=== PATIENT | female | born 1945 | race Two or more races ===

== ENCOUNTER 2025-04-11 07:00 | Inpatient (IN) | payer OTHER, MEDICAID ==
[2025-04-10 20:30] VITALS: PULSE 118
[2025-04-11] VITALS (23 sets, daily range): BP systolic 81–110; BP diastolic 38–62; PULSE 116–150; RESP 10–27; TEMP 98.1–98.6; O2SAT 94–100
[~2025-04-11] VITALS: Ht 154.9 cm; Wt 80.0 kg
[2025-04-11] MEDS ORDERED: FUROSEMIDE 40 MG/4 ML VIAL ONE (07:08)
--- NOTE | 2025-04-11 07:13 | ED.PDOC ---
SOB-HPI HPI Comments 79-year-old male with PMHx Asthma, HTN, DM presents with a chief complaint of respiratory distress on CPAP. Patient has been SOB for 1 hour per family at scene. Patient was initially sating at 89% on room air. Patient was given a breathing treatment with no improvement and was subsequently placed on CPAP at 15. Patient is now sating at 92%. Patient is pale in color and diaphoretic. Lungs sounds had bilateral wheezing upon auscultation. Patient was recently seen at [facility] for respiratory distress x 1 month ago. Time Seen by MD: 06:58 Reviewed notes: Medications, Allergies Information Source: Emergency Med Personnel Mode of Arrival: EMS Severity: Moderate Timing: Hours Duration: Since onset Context: At Rest PE Risk Factors: None History of: Asthma Prehospital treatment: 12 Lead EKG, Optical Technician, Oxygen Associated Signs and Symptoms: Wheeze Past Medical History PAST MEDICAL HISTORY: Asthma, DM, HTN Surgical History: Denies all surgeries Family History Family History: Reviewed,noncontributory to illness Social History Smoker: Non-Smoker Alcohol: Denies ETOH Use Drugs: Denies Drug Use Lives In: Home Constitutional: reports: diaphoresis; denies: chills, fatigue, fever, malaise, sweats, weakness, others EENTM: denies: blurred vision, double vision, ear bleeding, ear discharge, ear drainage, ear pain, ear ringing, eye pain, eye redness, hearing loss, mouth pain, mouth swelling, nasal discharge, nose bleeding, nose congestion, nose pa in, photophobia, tearing, throat pain, throat swelling, voice changes, others Respiratory: reports: shortness of breath, wheezing; denies: cough, hemoptysis, orthopnea, SOB at rest, SOB with excertion, stridor, others Cardiovascular: denies: chest pain, dizzy spells, diaphoresis, Dyspnea on exertion, edema, irregular heart beat, left arm pain, lightheadedness, palpitations, PND, syncope, others Gastrointestinal: denies: abdomen distended, abdominal pain, blood streaked bowels, constipated, diarrhea, dysphagia, difficulty swallowing, hematemesis, melena, nausea, poor appetite, poor fluid intake, rectal bleeding, rectal pain, vomiting, others Neurological: denies: dizziness, fainting, headache, left sided numbness, left sided weakness, numbness, paresthesia, pre-existing deficit, right sided numbness, right sided weakness, seizure, speech problems, tingling, tremors, weakness, others Musculoskeletal: denies: back pain, gout, joint pain, joint swelling, muscle pain, muscle stiffness, neck pain, others Integumetry: denies: bruises, change in color, change in hair/nails, dryness, laceration, lesions, lumps, rash, wounds, others Allergic/Immunocompromised: denies: Difficulty Healing, Frequent Infections, Hives, Itching, others Hematologic/Lymphatic: denies: anemia, blood clots, easy bleeding, easy bruis ing, swollen glands, others Endocrine: denies: excessive hunger, excessive sweating, excessive thirst, exc essive urination, flushing, intolerance to cold, intolerance to heat, unexplained weight gain, unexplained weight loss, others Psychiatric: denies: anxiety, bipolar disorder, depression, hopeless, panic disorder, schizophrenia, sleepless, suicidal, others All Other Systems: Reviewed and Negative Physical Exam General Appearance: Normal, Severe Distress HEENT: Normal ENT Inspection, PERRL/EOMI, Pharynx Normal, TMs Normal, Other (PATIENT ON CPAP+) Neck: Full Range of Motion, Non-Tender, Normal, Normal Inspection Respiratory: Crackles, Lungs Clear, No Accessory Muscle Use, No Respiratory Distress, Normal Breath Sounds, Rales, Rhonchi Cardiovascular: No Edema, No JVD, No Murmur, No Gallop, Normal Peripheral Pulses, Regular Rate/Rhythm, Tachycardia Breast Exam: Deferred Gastrointestinal: No Organomegaly, Non Tender, No Pulsatile Mass, Normal Bowel Sounds, Soft Genitalia: Deferred Pelvic: Deferred Rectal: Deferred Extremities: No calf tenderness, Normal capillary refill, Normal inspection, Normal range of motion, Non-tender, No pedal edema Musculoskeletal : Apperance: Normal Neurologic: undergraduate intern II-XII nml as Tested, Depressed Affect, Motor Weakness, No Sensory Deficits Cerebellar Function: Normal Reflexes: Normal Skin: Diaphoresis, Dry, Normal Color, Warm Peripheral Pulses: 1+ carotid (R), 1+ carotid (L) Lymphatic: No Adenopathy EKG EKG : Pulse Rate (adult): 133 [place]: Normal Cardiac Rhythm: ST Was a procedure done? Was a procedure done?: No Differential Dx Differential Diagnosis: Asthma, Cardiogenic Shock, CHF, COPD, Dysrhythmia, Hyponatremia, Myocardial infarction, Pneumonia X-Ray, Labs, Meds, VS Vital Signs Date Time Temp Pulse Resp B/P (MAP) Pulse Ox O2 Delivery O2 Flow Rate FiO2 04/11/25 09:33 133 04/11/25 09:09 137 105/60 Facial BiPAP Mask 30 04/11/25 08:26 98.6 150 22 107/62 98 30 98.6 04/11/25 07:30 150 27 97 Bi-Pap+ 100 100 04/11/25 07:30 156 27 107/62 (77) 98 04/11/25 07:17 121/70 04/11/25 07:11 98.6 146 40 107/81 90 98.6 04/11/25 07:09 134 Facial BiPAP Mask 100 04/11/25 07:05 133 Lab Test 04/11/25 08:40 04/11/25 08:29 04/11/25 08:13 04/11/25 07:06 Range/Units Urine Color Colorless Yellow Urine Clarity Clear Clear Urine pH 5.0 5.0-9.0 Urine Specific [place] 1.008 1.001-1.035 Urine Protein Trace H Negative Urine Ketones Negative Negative Urine Blood 1+ H Negative /uL Urine Nitrite Negative Negative Urine Bilirubin Negative Negative Urine Urobilinogen Normal Negative mg/dL Urine Leukocyte Esterase Negative Negative /uL Urine RBC 23 0 - 4 /hpf Urine Microscopic WBC 1 0-5 /HPF Urine Squamous Epithelial Cells Few <5 /hpf Urine Bacteria None seen None Seen /hpf Urine Hyaline Casts Few 0 - 2 /lpf Urine Glucose 1+ H Normal mg/dL Troponin I High Sensitivity 566 *H 128 *H </=34 ng/L Blood Gas Specimen Type Arterial Blood Gas Sample Site Right radial Blood Gas Patient Temperature 37.0 Arterial Blood Date Drawn [id number] Arterial Blood pH 7.241 *L 7.350-7.450 Arterial Blood Partial Pressure CO2 57.5 H 32.0-45.0 mmHg Arterial Blood Partial Pressure O2 511.9 *H 83.0-108.0 mmHg Arterial Blood HCO3 24.1 21.0-28.0 mmol/L Arterial Blood Oxygen Saturation 99.9 H 94.0-98.0 % Arterial Blood Base Excess -4.0 L -2.0-3.0 mmol/L Arterial Blood Oxyhemoglobin 98.7 H 94.0-98.0 % Arterial Blood Carboxyhemoglobin 0.5 0.5-1.5 % Arterial Blood Methemoglobin 0.7 0.0-1.5 % Watson Test Yes Blood Gas Total Hemoglobin 13.30 12.0-16.0 g/dL Blood Gas Set Respiration Rate 12.0 Blood Gas Modality Mask - bipap Blood Gas Spontaneous Rate 22 FiO2 % 100.0 Blood Gas EPAP 8 Blood Gas IPAP 16 Blood Gas Critical Value Read Back yes Blood Gas Notified Whom Blood Gas Notified Time [id number] Blood Gas Notified By biochemistry teacher [place] White Blood Count 18.1 H 4.4-10.8 10^3/uL Red Blood Count 4.45 4.0-5.20 10^6/uL Hemoglobin 13.0 12.2-16.2 g/dL Hematocrit 39.4 36.0-46.0 % Mean Corpuscular Volume 88.6 80.0-100.0 fL Mean Corpuscular Hemoglobin 29.2 28.0-32.0 pg Mean Corpuscular Hemoglobin Concent 32.9 32.0-36.0 g/dL Red Cell Distribution Width 13.6 11.8-14.3 % Platelet Count 292 140-450 10^3/uL Mean Platelet Volume 8.7 6.9-10.8 fL Neutrophils (%) (Auto) 51.1 37.0-80.0 % Lymphocytes (%) (Auto) 38.4 10.0-50.0 % Monocytes (%) (Auto) 6.3 0.0-12.0 % Eosinophils (%) (Auto) 3.3 0.0-7.0 % Basophils (%) (Auto) 0.9 0.0-2.0 % Neutrophils # (Auto) 9.3 H 1.6-8.6 10 ^3/uL Lymphocytes # (Auto) 6.9 H 0.4-5.4 10 ^3/uL Monocytes # (Auto) 1.1 0-1.3 10 ^3/uL Eosinophils # (Auto) 0.6 0-0.8 10 ^3/uL Basophils # (Auto) 0.2 0-0.2 10 ^3/uL Nucleated Red Blood Cells 0.1 % D-Dimer, Quantitative 1.14 H 0.0-0.49 mg/L FEU Sodium Level 142 136-145 mmol/L Potassium Level 3.2 L 3.5-5.1 mmol/L Chloride Level 105 98-107 mmol/L Carbon Dioxide Level 23 20-31 mmol/L Anion Gap 14 5-15 Blood Urea Nitrogen 11 9-23 mg/dL Creatinine 1.11 H 0.550-1.02 mg/dL Glomerular Filtration Rate Calc 50 >90 mL/min BUN/Creatinine Ratio 9.9 L 10.0-20.0 Serum Glucose 333 H 74-106 mg/dL Calcium Level 9.1 8.7-10.4 mg/dL Magnesium Level 1.5 L 1.6-2.6 mg/dL Total Bilirubin 0.7 0.2-1.0 mg/dL Aspartate Amino Transferase (AST) 26 13-40 U/L Alanine Aminotransferase (ALT) 13 7-40 U/L Alkaline Phosphatase 60 46-116 U/L B-Type Natriuretic Peptide 323.97 0-100 pg/mL Total Protein 7.2 5.7-8.2 g/dL Albumin 4.8 3.2-4.8 g/dL Thyroid Stimulating Hormone (TSH) 2.26 0.55-4.78 uIU/mL Current Medications Medications (Trade) Dose Ordered Sig/[place] Route Start Time Stop Time Status Last Admin Furosemide (Lasix Injection) 40 mg ONCE ONCE IV 04/11/25 07:15 04/11/25 07:16 DC 04/11/25 07:17 X-Ray, Labs, Meds, VS Comment Course in the emergency department eventful patient came in with shortness of breath on a CPAP diaphoretic and tachycardic The chest x-ray shows pulmonary edema EKG shows sinus tachycardia at 1:33 a.m. CBC 36102 with 51% neutrophils H&H normal Troponin 128 and 566 CMP potassium 3.2 GFR of 50 Blood sugar 333 Magnesium 1.5 Urine shows 1+ protein 1+ glucose D-dimer elevated at 1.14 BNP 324 TSH 2.26 Patient is a [employer] member she is non transferrable Time of 1ST Reevaluation: 07:28 Reevaluation 1ST: Unchanged Reevaluation 2ND: Unchanged Consultation: Cardiology Patient Education/Counseling: Diagnosis, Treatment, Prognosis, Need For Follow Up Family Education/Counseling: Diagnosis, Treatment, Prognosis, Need For Follow Up, No Family Present SEPSIS Sepsis Screen Physician Orders Chest Xray 1 View (04/11/25 07:08) Communication Order (04/11/25 07:05) Electrocardigram (04/11/25 10:07) [place] Iv (04/11/25 07:06) Sodium Chloride 0.9% (04/11/25 07:15) BIPAP (04/11/25 07:08) Abg W/ Co-Ox (04/11/25 08:00) Troponin-I Hs (04/11/25 10:06) Vital Signs Date Time Temp Pulse Resp B/P (MAP) Pulse Ox O2 Delivery O2 Flow Rate FiO2 04/11/25 09:33 133 04/11/25 09:09 137 105/60 Facial BiPAP Mask 30 04/11/25 08:26 98.6 150 22 107/62 98 30 98.6 04/11/25 07:30 150 27 97 Bi-Pap+ 100 100 04/11/25 07:30 156 27 107/62 (77) 98 04/11/25 07:17 121/70 04/11/25 07:11 98.6 146 40 107/81 90 98.6 04/11/25 07:09 134 Facial BiPAP Mask 100 04/11/25 07:05 133 Laboratory Tests Test 04/11/25 07:06 White Blood Count 18.1 10^3/uL (4.4-10.8) H Medications Medications Dose Ordered Sig/[place] Route Start Time Stop Time Status Last Admin Dose Admin Furosemide 40 mg ONCE ONCE IV 04/11/25 07:15 04/11/25 07:16 DC 04/11/25 07:17 Departure 1 Departure Time of Disposition: 09:29 Impression: Primary Impression: Pulmonary edema cardiac cause Additional Impressions: Hypokalemia CKD (chronic kidney disease) stage 3, GFR 30-59 ml/min Qualified Codes: N18.31 - Chronic kidney disease, stage 3a Uncontrolled diabetes mellitus Qualified Codes: E11.65 - Type 2 diabetes mellitus with hyperglycemia Hypomagnesemia Elevated troponin Disposition: ADMITTED INPATIENT Admit to: [facility] Condition: Serious Critical Care Note Critical Care Time?: Yes (30 min-critical care time only) Stability Stability form required: Yes Comments /Patient is a [employer] member she is not transferrable Spoke to [place] doctor and the approval to [phone] Unstable for transfer: ICU, CCU, PCU, [facility] (Intensive VS monitoring), Requires medication Heart Score Heart Score: Heart Score Response (Comments) Value History Highly Suspicious [address]-Deviation 2 Age >65 2 Risk Factors >3 or Hx ASHD 2 Troponin >3 x's Normal limit 2 Total 10 I personally scribed for KELLEN MENDOZA MD ([email or web address]) on 04/11/25 at 07:13. Electronically submitted by Jalen Johns [email or web address]). KELLEN MENDOZA MD Apr 11, 2025 07:13
[2025-04-11] MEDS: FUROSEMIDE 20 MG/2 ML VIAL IV ONE (07:17)
[2025-04-11 07:40] LABS: Hematocrit 39.4 % (36.0-46.0); Hemoglobin 13.0 g/dL (12.2-16.2); Mean Corpuscular Hemoglobin 29.2 pg (28.0-32.0); Mean Corpuscular Volume 88.6 fL (80.0-100.0); Nucleated Red Blood Cells % 0.1 %
--- NOTE | 2025-04-11 07:44 | DVH ---
CHEST RADIOGRAPH Indication: RESPIRATORY DISTRESS Technique: Single frontal view of the chest was obtained Comparison: None FINDINGS: Lines and Tubes: None Lungs: Bilateral opacities in the lungs. Pleura: No effusion. No pneumothorax. Cardiomediastinal contours: Unremarkable Bones: No acute osseous abnormality. IMPRESSION: 1. Pulmonary vascular congestion.
[2025-04-11] MEDS: SODIUM CHLORIDE 0.9% 1,000 ML IV ONE (07:46)
[2025-04-11 08:09] LABS: Alanine Aminotransferase 13 U/L (7-40); Albumin 4.8 g/dL (3.2-4.8); Alkaline Phosphatase 60 U/L (46-116); Anion Gap 14 (5-15); BUN/Creatinine Ratio 9.9 (10.0-20.0); Blood Urea Nitrogen 11 mg/dL (9-23); Calcium 9.1 mg/dL (8.7-10.4); Carbon Dioxide 23 mmol/L (20-31); Chloride 105 mmol/L (98-107); Glucose 333 mg/dL (74-106); Magnesium 1.5 mg/dL (1.6-2.6); Potassium 3.2 mmol/L (3.5-5.1); Sodium 142 mmol/L (136-145); Total Protein 7.2 g/dL (5.7-8.2)
[2025-04-11 08:10] LABS: Bilirubin, Total 0.7 mg/dL (0.2-1.0)
[2025-04-11 08:19] LABS: Base Excess -4.0 mmol/L (-2.0-3.0)
[2025-04-11 09:12] LABS: Urine Protein, UAD TRACE (Negative)
--- NOTE | 2025-04-11 10:00 | ECG ---
[facility] Test Date: 2025-04-11 Test Time: 07:05:02 Pat Name: DANILO DAMIAN Department: [facility] ED Patient ID: [id number] Room: [address] [place] [address] Gender: F Head Of History: TEO : 1945 Requested By: KELLEN MENDOZA Order Number: [id number] Reading MD: Herson Perez Measurements Intervals [place] Rate: 133 P: 85 NV: 153 QRS: 12 QRSD: 75 T: 182 QT: 256 QTc: 381 Interpretive Statements Sinus tachycardia Repolarization abnormality, prob rate related Baseline wander in lead(s) V2,V6 Electronically Signed On 04-16-2025 17:54:33 PDT by Herson Perez Please click the below link to view image of tracing.
[2025-04-11 11:22] LABS: Base Excess -2.5 mmol/L (-2.0-3.0)
[2025-04-11] MEDS: MAGNESIUM SULFATE 1GM/100ML 100 ML IV SCH (11:31)
[2025-04-11] MEDS: POTASSIUM EFFERVESENT TAB 25 MEQ PO ONE (11:31)
[2025-04-11] MEDS: IOHEXOL 350 MG/ML 100ML IJ ONE (12:55)
[2025-04-11] MEDS: LEVALBUTEROL HCL 1.25 MG/3 ML NEB NEB ONE (13:30)
[2025-04-11] MEDS: ALBUTEROL SULF 2.5 MG/0.5ML(0.5%) NEB SOLN NEB ONE (13:30)
[2025-04-11] MEDS: IPRATROPIUM BROM 0.5 MG/2.5ML INH SOL ONE (13:41)
[2025-04-11] MEDS: LEVALBUTEROL HCL 1.25 MG/3 ML NEB ONE (13:41)
--- NOTE | 2025-04-11 13:44 | DVH ---
CTA Chest with intravenous contrast INDICATION: R/O pulmonary embolism COMPARISON: XY CHEST XRAY 1 VIEW on DOS: 04/11/25 TECHNIQUE: Multidetector spiral CTA of the chest was performed of the chest with intravenous contrast . PULMONARY ANGIOGRAPHY PROTOCOL was utilized using a bolus-tracking technique centered on the main p ulmonary artery. Axial, coronal and sagittal multiplanar and MIP reformats were performed. CONTRAST: Type of contrast: Omni 350 Contrast injected: 100 ml Radiation dose : Chest: CTDI volume is mGy. Dose-length product is mGy*cm The dose indicators for CT are the volume computed Tomography (CT) dose Index (CTDIvol) and the dose Length product (DLP), and are measured in units of mGy and mGy-cm, respectively. These indicators are not patient dose, but values generated from the CT scanner acquisition factors. The report includes radiation exposure data for exposures received during this examination. Findings: Limited by motion. Pulmonary artery: No large central or large segmental pulmonary embolism. Lower neck: Normal thyroid. Lungs: Patchy ground-glass opacities in both lungs. Septal thickening. Atelectasis and consolidation in the lung bases. Heart/Vascular Structures: Normal heart size. No pericardial effusion. Lymph Nodes: Subcentimeter mediastinal lymph nodes. Pleura: Small bilateral pleural effusions. Musculoskeletal: No acute osseous abnormality. Soft tissues: Normal. Upper abdomen: Limited portions of the upper abdomen are unremarkable. IMPRESSION: 1. Limited by motion. No large central pulmonary embolism. 2. Patchy ground-glass opacities in both lungs. Atelectasis and consolidation in the lung bases. Sm all bilateral pleural effusions. Findings could represent congestive failure and/or fluid overload. Superimposed infectious / inflammatory process is not excluded. Clinical correlation and continued f ollow-up is recommended. HS:Y
[2025-04-11] MEDS: FUROSEMIDE 40 MG/4 ML VIAL IV ONE (13:50)
[2025-04-11] MEDS ORDERED: ONDANSETRON HCL 4 MG/2 ML VIAL IV PRN (14:45)
[2025-04-11] MEDS ORDERED: NITROGLYCERIN 0.4 MG SL TAB SL PRN (14:45)
[2025-04-11] MEDS ORDERED: MORPHINE SULFATE INJ 2 MG/ml SYRG IV PRN (14:45)
[2025-04-11] MEDS ORDERED: ACETAMINOPHEN 325 MG TAB PO PRN (14:45)
[2025-04-11] MEDS ORDERED: HYDROcodone-ACET 5/325MG TAB PO PRN (14:45)
[2025-04-11] MEDS ORDERED: METF-1145 PO (15:08)
[2025-04-11] MEDS ORDERED: MET50T PO (15:08)
[2025-04-11] MEDS ORDERED: ATOR40TA52 PO (15:08)
[2025-04-11] MEDS ORDERED: AMLO1TAB21 PO (15:08)
[2025-04-11] MEDS ORDERED: OMEP1CAP70 PO (15:08)
[2025-04-11] MEDS ORDERED: LISI40TA16 PO (15:08)
[2025-04-11] MEDS ORDERED: ISOS1TAB28 PO (15:08)
[2025-04-11] MEDS ORDERED: GLIP10TA9 PO (15:08)
--- NOTE | 2025-04-11 15:08 | DVHINCON2 ---
Date Seen: Apr 11, 2025 Referring Physician NAZARIO Raines Reason for Consultation NSTEMI History of Present Illness This is a Yi-speaking 79-year-old female patient who presents to the emergency room with chief complaint of shortness of breath and chest pain. The patient reports that symptoms began this morning after walking to the restroom. She began experiencing severe shortness of breath and subsequently chest pain. She describes the pain as provoked on exertion, constant, tight in nature, left- sided and nonradiating. Associated symptoms include shortness of breath. The patient was brought to the emergency room for further evaluation. Initial twelve lead electrocardiogram reveals sinus tachycardia. Initial troponin level of 128ng/L with significant up trend and current peak level at 4909ng/L. The patient was taken for a CT angio which ruled out pulmonary embolism. Significant past medical history includes hypertension, dyslipidemia, type 2 diabetes mellitus, asthma, and obesity. The patient's daughter at bedside reports that the patient was recently seen at this facility and transferred to [facility] for higher level of care. They were told at [facility] that the patient had a myocardial infarction. The patient states that she has been scheduled to undergo a coronary angiogram on 04/16/2025. She denies any previous coronary angiogram in the past. Past Medical History Past medical history reviewed. No other significant than mentioned above. Past Surgical History Right hip replacement Family History Family history reviewed. Social History Denies the use of tobacco, alcohol or illicit drugs. Allergies: Coded Allergies: NO KNOWN ALLERGIES (Unverified , 04/11/25) Home Meds Reported Medications Isosorbide Mononitrate (Isosorbide Mononitrate Er) 30 Mg Tab, 1 TAB PO DAILY 04/11/25 Amlodipine Besylate (Amlodipine Besylate) 2.5 Mg Tab, 1 TAB PO BID 04/11/25 Omeprazole (Omeprazole Dr) 20 Mg Cap, 1 CAP PO DAILY 04/11/25 Metformin Hydrochloride (Metformin Hcl Er) 500 Mg Tab, 1 TAB PO DAILY 04/11/25 Glipizide (Glipizide) 10 Mg Tab, 1 TAB PO DAILY 04/11/25 Lisinopril (Lisinopril) 40 Mg Tab, 1 TAB PO DAILY 04/11/25 Atorvastatin Calcium (ATORVASTATIN CALCIUM) 40 Mg Tab, 1 TAB PO HS 04/11/25 Metoprolol Tartrate (LOPRESSOR TABLET) 50 Mg Tb, 1 TAB PO BID 04/11/25 Home Meds Home medications reviewed. Current Medications Current Medications Medications (Trade) Dose Ordered Sig/Tanika Route PRN Reason Start Time Stop Time Status Last Admin Magnesium Sulfate/ Dextrose 100 ml @ 100 mls/hr Q1H IV 04/11/25 11:00 04/11/25 12:59 DC 04/11/25 13:40 Acetaminophen/ Hydrocodone Bitart ([place] 5/325MG Tab) 1 tab Q4HP PRN PO MODERATE PAIN (4-6 PAIN SCALE) 04/11/25 14:45 Ondansetron HCl (Zofran) 4 mg Q4HP PRN IV NAUSEA / VOMITING 04/11/25 14:45 Docusate Sodium (Colace Capsule) 100 mg BIDPRN PRN PO FOR CONSTIPATION 04/11/25 14:45 Acetaminophen (Tylenol Tablet) 650 mg Q6HP PRN PO PAIN SCALE 1-3 OR TEMP>100.4 04/11/25 14:45 Nitroglycerin (Ntrostat Sublingual) 0.4 mg Q5MINP PRN SL FOR CHEST PAIN 04/11/25 14:45 Morphine Sulfate 2 mg Q30M PRN IV FOR CHEST PAIN 04/11/25 14:45 Review of Systems Constitutional: No symptom reported Ears, Nose, & Throat: No symptom reported Eyes: No symptom reported Neurological: No symptoms reported Pulmonary/Respiratory: Shortness of breath Cardiovascular: Chest pain Gastrointestinal: No symptom reported Genitourinary: No symptom reported Musculoskeletal: No symptom reported Skin: No symptom reported Psychiatric: No symptom reported Endocrine: No symptom reported Hematologic/Lymphatic: No symptom reported Vital Signs Vital Signs Date Time Temp Pulse Resp B/P (MAP) Pulse Ox O2 Delivery O2 Flow Rate FiO2 04/11/25 13:50 126/60 04/11/25 13:45 144 Facial BiPAP Mask 100 04/11/25 09:30 15 94 04/11/25 09:30 97.8 97.8 Physical Exam General Appearance: Cooperative. Well-developed. Well-nourished. Increased work of breathing when talking Pulmonary/Respiratory: Diminished throughout. Currently on BiPAP Cardiovascular/Chest: Regular rate and rhythm. Peripheral Pulses: 2+ Radial (R). 2+ Radial (L). 2+ Pedal (R). 2+ Pedal (L) Abdominal Exam: Normal bowel sounds. Ankle Exam: Negative ankle edema Lower extremities: Negative lower extremity edema Neuro/Mental Status: A/OX4, coherent. Thoughts/Psych: Normal thought pattern. Appropriate mood and affect. Good judgment and insight. Appearance: No acute distress. Skin Exam: Normal inspection. Normal color. Warm and dry. Labs/Diagnostic Data Labs Test 04/11/25 11:38 04/11/25 11:30 04/11/25 11:16 04/11/25 08:40 Range/Units POC Glucose 309 H 70-106 mg/dl Troponin I High Sensitivity 4909 *H </=34 ng/L Blood Gas Specimen Type Arterial Blood Gas Sample Site Left radial Blood Gas Patient Temperature 37.0 Arterial Blood Date Drawn [id number] Arterial Blood pH 7.426 7.350-7.450 Arterial Blood Partial Pressure CO2 32.9 32.0-45.0 mmHg Arterial Blood Partial Pressure O2 100.4 83.0-108.0 mmHg Arterial Blood HCO3 21.2 21.0-28.0 mmol/L Arterial Blood Oxygen Saturation 97.4 94.0-98.0 % Arterial Blood Base Excess -2.5 L -2.0-3.0 mmol/L Arterial Blood Oxyhemoglobin 96.6 94.0-98.0 % Arterial Blood Carboxyhemoglobin 0.2 L 0.5-1.5 % Arterial Blood Methemoglobin 0.6 0.0-1.5 % Watson Test Yes Blood Gas Total Hemoglobin 12.20 12.0-16.0 g/dL Blood Gas Set Respiration Rate 12.0 Blood Gas Modality Mask - bipap Blood Gas Spontaneous Rate 20 FiO2 % 30.0 Blood Gas EPAP 8 Blood Gas IPAP 16 Urine Color Colorless Yellow Urine Clarity Clear Clear Urine pH 5.0 5.0-9.0 Urine Specific [place] 1.008 1.001-1.035 Urine Protein Trace H Negative Urine Ketones Negative Negative Urine Blood 1+ H Negative /uL Urine Nitrite Negative Negative Urine Bilirubin Negative Negative Urine Urobilinogen Normal Negative mg/dL Urine Leukocyte Esterase Negative Negative /uL Urine RBC 23 0 - 4 /hpf Urine Microscopic WBC 1 0-5 /HPF Urine Squamous Epithelial Cells Few <5 /hpf Urine Bacteria None seen None Seen /hpf Urine Hyaline Casts Few 0 - 2 /lpf Urine Glucose 1+ H Normal mg/dL Test 04/11/25 08:13 04/11/25 07:06 Range/Units Blood Gas Critical Value Read Back yes Blood Gas Notified Whom Blood Gas Notified Time [id number] Blood Gas Notified By department head [employer] White Blood Count 18.1 H 4.4-10.8 10^3/uL Red Blood Count 4.45 4.0-5.20 10^6/uL Hemoglobin 13.0 12.2-16.2 g/dL Hematocrit 39.4 36.0-46.0 % Mean Corpuscular Volume 88.6 80.0-100.0 fL Mean Corpuscular Hemoglobin 29.2 28.0-32.0 pg Mean Corpuscular Hemoglobin Concent 32.9 32.0-36.0 g/dL Red Cell Distribution Width 13.6 11.8-14.3 % Platelet Count 292 140-450 10^3/uL Mean Platelet Volume 8.7 6.9-10.8 fL Neutrophils (%) (Auto) 51.1 37.0-80.0 % Lymphocytes (%) (Auto) 38.4 10.0-50.0 % Monocytes (%) (Auto) 6.3 0.0-12.0 % Eosinophils (%) (Auto) 3.3 0.0-7.0 % Basophils (%) (Auto) 0.9 0.0-2.0 % Neutrophils # (Auto) 9.3 H 1.6-8.6 10 ^3/uL Lymphocytes # (Auto) 6.9 H 0.4-5.4 10 ^3/uL Monocytes # (Auto) 1.1 0-1.3 10 ^3/uL Eosinophils # (Auto) 0.6 0-0.8 10 ^3/uL Basophils # (Auto) 0.2 0-0.2 10 ^3/uL Nucleated Red Blood Cells 0.1 % D-Dimer, Quantitative 1.14 H 0.0-0.49 mg/L FEU Sodium Level 142 136-145 mmol/L Potassium Level 3.2 L 3.5-5.1 mmol/L Chloride Level 105 98-107 mmol/L Carbon Dioxide Level 23 20-31 mmol/L Anion Gap 14 5-15 Blood Urea Nitrogen 11 9-23 mg/dL Creatinine 1.11 H 0.550-1.02 mg/dL Glomerular Filtration Rate Calc 50 >90 mL/min BUN/Creatinine Ratio 9.9 L 10.0-20.0 Serum Glucose 333 H 74-106 mg/dL Calcium Level 9.1 8.7-10.4 mg/dL Magnesium Level 1.5 L 1.6-2.6 mg/dL Total Bilirubin 0.7 0.2-1.0 mg/dL Aspartate Amino Transferase (AST) 26 13-40 U/L Alanine Aminotransferase (ALT) 13 7-40 U/L Alkaline Phosphatase 60 46-116 U/L B-Type Natriuretic Peptide 323.97 0-100 pg/mL Total Protein 7.2 5.7-8.2 g/dL Albumin 4.8 3.2-4.8 g/dL Thyroid Stimulating Hormone (TSH) 2.26 0.55-4.78 uIU/mL Assessment NSTEMI, rule out coronary artery disease Rule out structural heart disease Hypertension Dyslipidemia Type 2 diabetes mellitus Plan/Recommendation We will continue with the following plan/recommendations (Dr. Perez): Patient seen and examined at bedside with . Given the patient's clinical presentation, and significantly elevated troponin levels, the patient was offered a coronary angiogram with left heart catheterization. The procedure was discussed with the patient in full detail including risks and benefits. Risks include but are not limited to bleeding, contrast-induced nephropathy, coronary dissection, stroke, and even . The patient understands and is agreeable to undergo the procedure. The patient will be urgently taken to the warehouse laborer. We will also plan for transthoracic echocardiogram to evaluate cardiac function. Thank you for allowing us to care for this patient. Please call with any questions or concerns. Critical care time spent: 44 minutes This medical document was created using an electronic medical record system with voice recognition software and computerized dictation system. Although this document has been carefully reviewed, there might still be some phonetic and typographical errors. Occasional wrong-word or ``sound-alike substitutions may have occurred due to the inherent limitations of voice recognition software. These areas are purely typographical due to imperfections of the software programs and do not reflect any compromise in the patient's medical care. Please read the chart carefully and recognize, using context, where these substitutions have occurred. Plan discussed with: Patient NYHA Physical activity limitations: NA Date of Service: Apr 11, 2025 Billing Provider: PAULA LACEY Cardiology Common Codes: 62011-LHPYPFZ INP/OBS CARE (High) Cardiology Consultation Codes: 37107-[id number] CONSULT <45MIN PAULA LACEY Apr 11, 2025 15:08
[2025-04-11] MEDS: HEPARIN SODIUM (PORCINE) 5000 UNITS/ML 1ML VIAL ONE (15:19)
[2025-04-11] MEDS: MIDAZOLAM HCL 2MG/2ML 2ml VIAL (1mg/ml) ONE (15:19)
[2025-04-11] MEDS: fentaNYL CITRATE 100 MCG/2 ML VL ONE ×2 (15:19→19:45)
[2025-04-11] MEDS: VERAPAMIL 2.5MG/ML INJ 2ML VIAL IV ONE (15:19)
[2025-04-11] MEDS: IODIXANOL 320MG/ML 100ML BTL IV ONE ×6 (15:20→19:07)
[2025-04-11] MEDS: LIDOCAINE 2%HCL (LOCAL ANESTH.) INJ 20ML MDV ONE ×2 (15:20→18:15)
--- NOTE | 2025-04-11 15:22 | ECG ---
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
[2025-04-11] MEDS: ANGIOMAX 250 MG VIAL IV ONE ×2 (15:24→16:33)
[2025-04-11] MEDS: SODIUM CHL 0.9% 50 ML ONE ×2 (15:24→16:34)
[2025-04-11] MEDS ORDERED: DEXTROSE (50%) 50ML SYRG IV PRN (15:30)
--- NOTE | 2025-04-11 15:30 | DVHHP2 ---
History of Present Illness Reason for Visit: Shortness of breath History of Present Illness Iris Shabazz is an 79-year-old female with past medical history of hypertension, hyperlipidemia, and diabetes, who came to the hospital for shortness of breath. Patient states she was sleeping when she was woken up with severe shortness of breath and chest pain. EMS was called and she was brought in on CPAP. Initial troponin was elevated at 128. After being on BiPAP breathing improved and she was placed on NC. Second troponin increased to 566 and D-dimer was elevated at 1.14. On assessment patient was on NC, and speaking in full sentences. States she has been experiencing worsening shortness of breath for the last month. She has been following with cardiology at [facility]. She is scheduled for a coronary angiogram next week. After my assessment, patient attempted to get out of bed for a bowel movement and became severely short of breath and began complaining of chest pain. Patient was placed back on BiPAP, EKG was completed and 3rd troponin was draw, which came back at 4909. Cardiology was called and came to bedside. Cardiovascular: HTN, hyperipidemia Endocrine: Diabetes Smoke: No ALCOHOL: none Drugs: None Lives: with Family Domestic Violence: Neg Review of Systems Constitutional: No: Fever, Chills, Sweats, Weakness, Malaise, Other Eyes: No: Pain, Vision change, Conjunctivae inflammation, Eyelid inflammation, Other, Redness ENT: No: Ear pain, Ear discharge, Nose pain, Nose discharge, Nose congestion, Mouth pain, Mouth swelling, Throat pain, Throat swelling, Other Respiratory: Shortness of breath, SOB with excertion, Wheezing; No: Cough, Dry, Hemoptysis, Pleuritic Pain, Sputum, Wheezing, Other Cardiovascular: Chest Pain, Palpitations; No: Orthopnea, Paroxysmal Noc. Dyspnea, Edema, Lt Headedness, Other Gastrointestinal: No: Nausea, Vomiting, Abdominal Pain, Diarrhea, Constipation, Melena, Hematochezia, Other Genitourinary: No Dysuria, No Frequency, No Incontinence, No Hematuria, No Retention, No Other Musculoskeletal: No: other, neck pain, shoulder pain, arm pain, back pain, hand pain, leg pain, foot pain Skin: No: Rash, Lesions, Jaundice, Bruising, Other Neurological: No: Weakness, Numbness, Incoordination, Change in speech, Confusion, Seizures, Other Allergies: Coded Allergies: NO KNOWN ALLERGIES (Unverified , 04/11/25) Medications Current Medications Medications Dose Ordered Sig/Tanika Route Start Time Stop Time Status Last Admin Dose Admin Acetaminophen/ Hydrocodone Bitart 1 tab Q4HP PRN PO 04/11/25 14:45 Ondansetron HCl 4 mg Q4HP PRN IV 04/11/25 14:45 Docusate Sodium 100 mg BIDPRN PRN PO 04/11/25 14:45 Acetaminophen 650 mg Q6HP PRN PO 04/11/25 14:45 Nitroglycerin 0.4 mg Q5MINP PRN SL 04/11/25 14:45 Morphine Sulfate 2 mg Q30M PRN IV 04/11/25 14:45 Exam Vital Signs Vital Signs Date Time Temp Pulse Resp B/P (MAP) Pulse Ox O2 Delivery O2 Flow Rate FiO2 04/11/25 13:50 126/60 04/11/25 13:45 144 Facial BiPAP Mask 100 04/11/25 09:30 15 94 04/11/25 09:30 97.8 97.8 General Appearance: Alert, Oriented X3, Cooperative, moderate distress HEENT: Atraumatic, PERRLA Respiratory: Other (Diminished breath sounds) Cardiovascular: Normal S1, Normal S2, Other (SR-ST) Abdominal: Normal bowel sounds, Soft, No tenderness, No hepatospenomegaly Extremities: No clubbing, No cyanosis, No edema, Normal pulses, No tenderness/swelling Skin: No rashes, No breakdown, No significant lesion Neuro: Normal gait, Normal speech, Strength at 5/5 X4 ext Psych/Mental Status: Mental status NL, Mood NL Labs/Xrays Labs Test 04/11/25 11:38 04/11/25 11:30 04/11/25 11:16 04/11/25 08:40 Range/Units POC Glucose 309 H 70-106 mg/dl Troponin I High Sensitivity 4909 *H </=34 ng/L Blood Gas Specimen Type Arterial Blood Gas Sample Site Left radial Blood Gas Patient Temperature 37.0 Arterial Blood Date Drawn [id number] Arterial Blood pH 7.426 7.350-7.450 Arterial Blood Partial Pressure CO2 32.9 32.0-45.0 mmHg Arterial Blood Partial Pressure O2 100.4 83.0-108.0 mmHg Arterial Blood HCO3 21.2 21.0-28.0 mmol/L Arterial Blood Oxygen Saturation 97.4 94.0-98.0 % Arterial Blood Base Excess -2.5 L -2.0-3.0 mmol/L Arterial Blood Oxyhemoglobin 96.6 94.0-98.0 % Arterial Blood Carboxyhemoglobin 0.2 L 0.5-1.5 % Arterial Blood Methemoglobin 0.6 0.0-1.5 % Watson Test Yes Blood Gas Total Hemoglobin 12.20 12.0-16.0 g/dL Blood Gas Set Respiration Rate 12.0 Blood Gas Modality Mask - bipap Blood Gas Spontaneous Rate 20 FiO2 % 30.0 Blood Gas EPAP 8 Blood Gas IPAP 16 Urine Color Colorless Yellow Urine Clarity Clear Clear Urine pH 5.0 5.0-9.0 Urine Specific [place] 1.008 1.001-1.035 Urine Protein Trace H Negative Urine Ketones Negative Negative Urine Blood 1+ H Negative /uL Urine Nitrite Negative Negative Urine Bilirubin Negative Negative Urine Urobilinogen Normal Negative mg/dL Urine Leukocyte Esterase Negative Negative /uL Urine RBC 23 0 - 4 /hpf Urine Microscopic WBC 1 0-5 /HPF Urine Squamous Epithelial Cells Few <5 /hpf Urine Bacteria None seen None Seen /hpf Urine Hyaline Casts Few 0 - 2 /lpf Urine Glucose 1+ H Normal mg/dL Test 04/11/25 08:13 04/11/25 07:06 Range/Units Blood Gas Critical Value Read Back yes Blood Gas Notified Whom Blood Gas Notified Time [id number] Blood Gas Notified By facer operator [place] White Blood Count 18.1 H 4.4-10.8 10^3/uL Red Blood Count 4.45 4.0-5.20 10^6/uL Hemoglobin 13.0 12.2-16.2 g/dL Hematocrit 39.4 36.0-46.0 % Mean Corpuscular Volume 88.6 80.0-100.0 fL Mean Corpuscular Hemoglobin 29.2 28.0-32.0 pg Mean Corpuscular Hemoglobin Concent 32.9 32.0-36.0 g/dL Red Cell Distribution Width 13.6 11.8-14.3 % Platelet Count 292 140-450 10^3/uL Mean Platelet Volume 8.7 6.9-10.8 fL Neutrophils (%) (Auto) 51.1 37.0-80.0 % Lymphocytes (%) (Auto) 38.4 10.0-50.0 % Monocytes (%) (Auto) 6.3 0.0-12.0 % Eosinophils (%) (Auto) 3.3 0.0-7.0 % Basophils (%) (Auto) 0.9 0.0-2.0 % Neutrophils # (Auto) 9.3 H 1.6-8.6 10 ^3/uL Lymphocytes # (Auto) 6.9 H 0.4-5.4 10 ^3/uL Monocytes # (Auto) 1.1 0-1.3 10 ^3/uL Eosinophils # (Auto) 0.6 0-0.8 10 ^3/uL Basophils # (Auto) 0.2 0-0.2 10 ^3/uL Nucleated Red Blood Cells 0.1 % D-Dimer, Quantitative 1.14 H 0.0-0.49 mg/L FEU Sodium Level 142 136-145 mmol/L Potassium Level 3.2 L 3.5-5.1 mmol/L Chloride Level 105 98-107 mmol/L Carbon Dioxide Level 23 20-31 mmol/L Anion Gap 14 5-15 Blood Urea Nitrogen 11 9-23 mg/dL Creatinine 1.11 H 0.550-1.02 mg/dL Glomerular Filtration Rate Calc 50 >90 mL/min BUN/Creatinine Ratio 9.9 L 10.0-20.0 Serum Glucose 333 H 74-106 mg/dL Calcium Level 9.1 8.7-10.4 mg/dL Magnesium Level 1.5 L 1.6-2.6 mg/dL Total Bilirubin 0.7 0.2-1.0 mg/dL Aspartate Amino Transferase (AST) 26 13-40 U/L Alanine Aminotransferase (ALT) 13 7-40 U/L Alkaline Phosphatase 60 46-116 U/L B-Type Natriuretic Peptide 323.97 0-100 pg/mL Total Protein 7.2 5.7-8.2 g/dL Albumin 4.8 3.2-4.8 g/dL Thyroid Stimulating Hormone (TSH) 2.26 0.55-4.78 uIU/mL CHEST RADIOGRAPH FINDINGS: Lines and Tubes: None Lungs: Bilateral opacities in the lungs. Pleura: No effusion. No pneumothorax. Cardiomediastinal contours: Unremarkable Bones: No acute osseous abnormality. IMPRESSION: 1. Pulmonary vascular congestion. CTA Chest with intravenous contrast Findings: Limited by motion. Pulmonary artery: No large central or large segmental pulmonary embolism. Lower neck: Normal thyroid. Lungs: Patchy ground-glass opacities in both lungs. Septal thickening. Atelectasis and consolidation in the lung bases. Heart/Vascular Structures: Normal heart size. No pericardial effusion. Lymph Nodes: Subcentimeter mediastinal lymph nodes. Pleura: Small bilateral pleural effusions. Musculoskeletal: No acute osseous abnormality. Soft tissues: Normal. Upper abdomen: Limited portions of the upper abdomen are unremarkable. IMPRESSION: 1. Limited by motion. No large central pulmonary embolism. 2. Patchy ground-glass opacities in both lungs. Atelectasis and consolidation in the lung bases. Small bilateral pleural effusions. Findings could represent congestive failure and/or fluid overload. Superimposed infectious / inflammatory process is not excluded. Clinical correlation and continued follow-up is recommended. SEPSIS Sepsis Screen Date sepsis recognized/suspect: Apr 11, 2025 Time Sepsis recognized/suspect: 929 Recent Procedure: No On Antibiotic Therapy: No Respiratory Rate >20: No Heart Rate >90: Yes Temp<36 C (96.8 F) or >38.3 C: No SBP <90 or MAP <65 mmHG: No New Acute Mental Status Change: No Is the patient on CPAP, BIPAP,: Yes Physician Orders Chest Xray 1 View (04/11/25 07:08) Communication Order (04/11/25 07:05) Electrocardigram (04/11/25 10:07) Heplock Iv (04/11/25 07:06) Sodium Chloride 0.9% (04/11/25 07:15) Abg W/ Co-Ox (04/11/25 08:00) Abg W/ Co-Ox (04/11/25 11:15) Ct Angio Chest Contrast (04/11/25 12:38) Electrocardigram (04/11/25 13:38) BIPAP (04/11/25 13:42) Abg W/ Co-Ox (04/11/25 15:00) Admit (04/11/25 14:36) Code Status (04/11/25 14:36) 2 Gm Sodium Diet (04/11/25 Dinner) Hydrocodone-Acet 5/325mg Tab ([place]earcy 5/32 (04/11/25 14:45) Ondansetron Hcl (Zofran) (04/11/25 14:45) Docusate Sodium Capsule (Colace Capsule) (04/11/25 14:45) Complete Blood Count (04/12/25 04:00) Comprehensive Metabolic Panel (04/12/25 04:00) Pt Request For Service (04/11/25 14:36) Condition: Serious (04/11/25 14:36) Acetaminophen Tablet (Tylenol Tablet) (04/11/25 14:45) Nitroglycerin Sublingual (Ntrostat Subli (04/11/25 14:45) Morphine Sulfate Injection (04/11/25 14:45) Stat Ekg For Chest Pain (04/11/25 14:36) Notify Md Of Changes From Base (04/11/25 14:36) Sales Appointment Coordinator For 24 Hours (04/11/25 14:36) Emergency Dysrhythmia Protocol (04/11/25 14:36) Rhythm Strips Once Every Shift (04/11/25 14:36) Oxygen By Nasal Cannula (04/11/25 14:36) Echo 2d Mode Cardiac Dop (04/11/25 14:38) * Cardiology Consult (04/11/25 14:41) Vital Signs Date Time Temp Pulse Resp B/P (MAP) Pulse Ox O2 Delivery O2 Flow Rate FiO2 04/11/25 13:50 126/60 04/11/25 13:45 144 130/64 Facial BiPAP Mask 100 04/11/25 09:33 133 04/11/25 09:30 141 15 94 Bi-Pap+ 100 100 04/11/25 09:30 97.8 141 15 104/65 (78) 94 97.8 04/11/25 09:09 137 105/60 Facial BiPAP Mask 30 04/11/25 08:26 98.6 150 22 107/62 98 30 98.6 04/11/25 07:30 150 27 97 Bi-Pap+ 100 100 04/11/25 07:30 156 27 107/62 (77) 98 04/11/25 07:17 121/70 04/11/25 07:11 98.6 146 40 107/81 90 98.6 04/11/25 07:09 134 Facial BiPAP Mask 100 04/11/25 07:05 133 Laboratory Tests Test 04/11/25 07:06 White Blood Count 18.1 10^3/uL (4.4-10.8) H Medications Medications Dose Ordered Sig/Tanika Route Start Time Stop Time Status Last Admin Dose Admin Furosemide 40 mg ONCE ONCE IV 04/11/25 07:15 04/11/25 07:16 DC 04/11/25 07:17 40 MG Furosemide 40 mg ONCE ONCE IV 04/11/25 13:45 04/11/25 13:46 DC 04/11/25 13:50 40 MG Magnesium Sulfate/ Dextrose 100 ml @ 100 mls/hr Q1H IV 04/11/25 11:00 04/11/25 12:59 DC 04/11/25 13:40 100 MLS/HR Potassium Bicarbonate 50 meq ONCE ONCE PO 04/11/25 10:45 04/11/25 10:46 DC 04/11/25 11:31 50 MEQ Assessment/Plan Assessment/Plan Assessment: Elevated troponin, Possible NSTEMI, Possible PE, Pleural effusion, Possible pneumonia, Hypokalemia, Leukocytosis, Hypertension, Diabetes, Plan: Admit to Tele, CT angio of chest, Cardiology consult, ECHO, A1c, TSH, Lipid panel, IV antibiotics, NPO, Breathing treatments, Supplemental oxygen as needed, BiPAP as needed, Accu checks Q AC&HS with sliding scale, Manage/Monitor electrolytes closely, Home medications reconciled, Plan discussed with: Patient, Spouse, Daughter My Orders Orders - DORIS DAVILA [employer] Procedure Category Date Status Time Ct Angio Chest CT 04/11/25 Resulted Contrast 12:38 Admit ADMIT 04/11/25 Transmitted 14:36 Code Status CODE 04/11/25 Transmitted 14:36 2 Gm Sodium Diet DIET 04/11/25 Transmitted Dinner Hydrocodone-Acet PHA 04/11/25 In Process 5/325mg Tab (Searcy 14:45 Ondansetron Hcl PHA 04/11/25 In Process (Zofran) 14:45 Docusate Sodium PHA 04/11/25 In Process Capsule (Colace 14:45 Complete Blood Count LAB 04/12/25 Verified 04:00 Comprehensive LAB 04/12/25 Verified Metabolic Panel 04:00 Pt Request For Service PT 04/11/25 Logged 14:36 Condition: Serious SARA 04/11/25 In Process 14:36 Acetaminophen Tablet PHA 04/11/25 In Process (Tylenol Tablet) 14:45 Nitroglycerin [facility] 04/11/25 In Process Sublingual (Ntrostat 14:45 Morphine Sulfate PHA 04/11/25 In Process Injection 14:45 Stat Ekg For Chest [facility] 04/11/25 In Process Pain 14:36 Notify Md Of Changes [facility] 04/11/25 In Process From Base 14:36 Sales Appointment Coordinator For [facility] 04/11/25 In Process 24 Hours 14:36 Emergency Dysrhythmia [facility] 04/11/25 In Process Protocol 14:36 Rhythm Strips Once [facility] 04/11/25 In Process Every Shift 14:36 Oxygen By Nasal RT 04/11/25 Transmitted Cannula 14:36 Echo 2d Mode Cardiac US 04/11/25 Logged DOP 14:38 * Cardiology Consult CONS 04/11/25 Verified 14:41 Date of Service: Apr 11, 2025 Billing Provider: DORIS DAVILA Common Visit Codes: [id number] INP/OBS CARE (HIGH) DORIS DAVILA Apr 11, 2025 15:30
[2025-04-11 15:37] LABS: Cholesterol 143 mg/dL (< 200); HDL Cholesterol 51 mg/dL (40-59); Triglycerides 209 mg/dL (< 150)
[2025-04-11 15:46] LABS: Base Excess -3.6 mmol/L (-2.0-3.0)
[2025-04-11] MEDS: DOBUTamine 1000MCG/ML 250 ML IV ONE (16:17)
[2025-04-11] MEDS: CLOPIDOGREL BISULFATE 75 MG TAB ONE ×2 (17:28→17:52)
[2025-04-11] MEDS: HEPARIN IN NS 1000Units/500mL 1,500 ML ONE (17:53)
[2025-04-11] MEDS ORDERED: DOBUTamine 1000MCG/ML 250 ML IV SCH ×2 (18:00→20:15)
--- NOTE | 2025-04-11 18:58 | ECG ---
[facility] Test Date: 2025-04-11 Test Time: 13:43:32 Pat Name: DANILO DAMIAN Department: [facility] ED Patient ID: [id number] Room: [address] [place] [address] Gender: F [employer] Inspector: [place] : 1945 Requested By: KELLEN MENDOZA Order Number: [id number] Reading MD: Herson Perez Measurements Intervals [place] Rate: 142 P: 36 WY: 144 QRS: 17 QRSD: 87 T: 211 QT: 257 QTc: 395 Interpretive Statements Supraventricular tachycardia Anteroseptal infarct, age indeterminate Baseline wander in lead(s) II Electronically Signed On 04-16-2025 17:57:53 PDT by Herson Perez Please click the below link to view image of tracing.
[2025-04-11 19:59] LABS: Hematocrit 28.4 % (36.0-46.0); Hemoglobin 9.4 g/dL (12.2-16.2); Mean Corpuscular Hemoglobin 28.6 pg (28.0-32.0); Mean Corpuscular Volume 86.5 fL (80.0-100.0); Nucleated Red Blood Cells % 0.0 %
[2025-04-11] MEDS ORDERED: SOD CHL 0.45% 1,000 ML IV SCH (20:15)
[2025-04-11 20:19] LABS: Alanine Aminotransferase 16 U/L (7-40); Albumin 3.3 g/dL (3.2-4.8); Anion Gap 11 (5-15); BUN/Creatinine Ratio 13.1 (10.0-20.0); Bilirubin, Total 0.5 mg/dL (0.2-1.0); Blood Urea Nitrogen 14 mg/dL (9-23); Carbon Dioxide 22 mmol/L (20-31); Chloride 100 mmol/L (98-107); Potassium 4.4 mmol/L (3.5-5.1)
[2025-04-11 20:20] LABS: Alkaline Phosphatase 41 U/L (46-116); Calcium 7.7 mg/dL (8.7-10.4); Glucose 329 mg/dL (74-106); Sodium 133 mmol/L (136-145); Total Protein 5.1 g/dL (5.7-8.2)
[2025-04-11] MEDS: InsuLIN REG 1unit/0.01ml Soln (100units/ml) SC SCH ×2 (20:49→20:50)
[2025-04-11] MEDS: ACCU-CHEK COMFORT CURVE STRIP VI SCH (20:50)
--- NOTE | 2025-04-11 21:08 | DVHOP2 ---
Operative Report - 2 Report Details Date: 04/11/25 Preop Diagnosis: Acute myocardial infarction, congestive heart failure. Peripheral vascular disease. Postop Diagnosis: Severe ischemic cardiomyopathy. Severe coronary artery disease. Severe peripheral vascular disease. Surgeon: Chavez Perez MD Anesthesiologist: Conscious sedation Anesthesia: Mac, Local Consent: The patient was informed of the risks and benefits of the procedure. These include but are not limited to complications of anesthesia, postoperative infection, incomplete relief of symptoms, recurrence of symptoms, damage to blood vessels, nerves and tendons, deep venous thrombosis, pulmonary embolism and possible need for repeat surgery in the future. Complications: Extravasation of contrast from right femoral artery arterial site. Estimated Blood Loss: Patient developed hematoma with drop in hematocrit and hemoglobin of about 4 g Fluids: Proximally 500 cc normal saline Findings: Severe coronary artery disease. Peripheral vascular disease. Cardiomyopathy. Indications for Surgery: Pulmonary edema. Congestive heart failure. Acute myocardial infarction. Coronary artery disease. Coronary ischemia Name of Procedure Performed Left heart catheterization. Bilateral cine coronary angiography. Left ventriculography. PTCA and stenting of the left anterior descending coronary artery and circumflex coronary artery/marginal branches. Intravascular ultrasound evaluation of the LAD and circumflex. Shockwave therapy of left anterior descending coronary artery. FURNACE MECHANIC of right iliac. Angiographic evaluation of right iliac and superficial femoral artery. Attempted FURNACE MECHANIC of SFA. Balloon tamponading of right femoral artery for enlarging hematoma right groin. Procedure Details Procedure Details: Prior local anesthesia with 2% lidocaine to the right wrist and full informed consent obtained the patient was prepped and draped in the usual fashion an attempt was made to enter the radial artery. We placed a six German sheath into the right radial artery however we were unable to pass a catheter beyond the elbow given the severe stricture within the radial artery. We opted to then accessed the groin. Under ultrasound and fluoroscopic guidance we were able to access the right femoral artery. We did enter a stented segment. We were unable to pass a conventional guidewire after we entered the femoral artery. There was two lesions noted in the iliacs for which we placed a stiff wire into the femoral artery and then used the back end of the J curved guidewire to be able to pass the area of stenosis. We then placed AJ curved guidewire beyond the 2nd lesion in the iliac and we were able to pass catheters to perform the angiographic evaluation and the angioplasty as well as ultrasound evaluations and shockwave therapy of the coronary vasculature. Subsequent to the angioplasty of the coronary arteries we performed FURNACE MECHANIC of the iliac as will be delineated below. Hemodynamics aortic blood pressure was 100/50. End-diastolic pressure was 25- 30. There was no gradient across the aortic valve on pullback. Coronary anatomy: The RCA is large and dominant vessel. PDA and posterolateral branches are within normal limits with with mild plaquing with no critical lesions. The left main is large but short and is normal. Left anterior descending coronary artery is 100% occluded. There was minimal flow into the proximal segment but the entirety of the LAD is not visualized. The circumflex is a large vessel it divides into two branches. The superior branch/the 1st marginal has an ostial 70-80% stenosis and a mid 90% stenosis which is long and tubular. The proximal segment of the circumflex distal to the 1st marginal and/or the mid segment of the circumflex has a 99% stenosis with a black that extends for about15 mm. Ventriculography in the VANCE projection shows an EF of about 20% with an enlarged LV. Angioplasty was performed. We placed a 3-0 XB catheter as noted above into the left main. VIDHI on wire was used across the area of stenosis and a two five balloon was used to pre dilate. There was significant calcification with a waist that remained subsequent to higher pressures. We then exchanged the two five balloon for a two five shockwave balloon. Six treatment sequences were performed. There was notable improvement in flow. We then placed a two five by18 mm stent into the proximal and ostial segment of the LAD. There was notably improved flow to VERO three flow. We then placed a Ca and a wire into the proper circumflex and pre-dilated. We then placed a 3-0 by15 mm balloon into the mid segment of the circumflex. We noticed a proximal dissection for which we then placed a 3-0 by8 mm stent overlapping the initial stent and at the bifurcation of the 1st marginal. Given that there was a significant lesion at the origin of the 1st marginal we redirected our wire superiorly and placed a two five balloon followed by a two five by [address] [employer] drug-eluting stent at approximately 16 atmospheres. There was excellent antegrade flow without thrombus formation and/or dissection. Once the angioplasty of the coronary vasculature was completed we directed our attention to the iliac vessels. We took a8 x 40 mm balloon and dilated within the stent the areas of in stent restenosis. There was notable improvement however there was still some plaquing present. We retracted the balloon proximally towards the sheath/distally from the patient and we dilated the segment of SFA just distal to the insertion point of are sheath. It appears that a strut had enlarged and placing the sheath. We noticed a progressive hematoma for which we then placed significant pressure and placed a six German sheath into the left femoral artery and analyzed the hematoma that was expanding for which we had placed more pressure. We noticed that there was a extravasation of contrast adjacent to the profunda within the common femoral. We then placed a8 mm balloon at two atmospheres after placing a destination catheter into the left femoral artery and crossing over the horn into the right iliac and femoral artery. We were able to document that we had a tamponade of the artery. We attempted to gain access into the femoral since it appeared that there was some flow initially albeit minute. We were not able to pass a wire into the actual mid to distal superficial femoral artery. We also noted collaterals from the internal iliac to the profunda and distally into the distal SFA and tibioperoneal trunk.. It was noted that she did have pulses in the posterior tibial with a Doppler postprocedure. Subsequent tamponading the common femoral and distal iliac we noted thrombus formation within the stent and proximal SFA. The extravasation of contrast has ceased at the entry point of the femoral sheath. There was notable and complete cessation of contrast extravasation in the hematoma was stable. The left femo ral sheath was pulled and a Angio-Seal device was used. The patient was taken to ICU with a dobutamine drip for the treatment of her congestive heart failure and monitoring of her right femoral hematoma. A staged procedure to be considered. Impression severe dilated ischemic cardiomyopathy successful stenting of the LAD and circumflex coronary arteries. Successful intravascular ultrasound and lithotripsy treatment of the left anterior descending coronary artery. Severe peripheral vascular disease. With angioplasty of the right iliac. Balloon tamponading of the right femoral artery for contrast extravasation from the initial sheath placement. Significant peripheral vascular disease involving the right and left superficial femoral artery. Occlusion of the left superficial femoral artery FR hand. Adequate collateralization from the profunda to the left lower extremity thus far. Recommendations: Continue dual antiplatelet therapy. Monitor H&H. Staged procedure for the right femoral and iliac artery angioplasty retrograde from the posterior tibial artery. This will be performed within the next48 hours. Case discussed with family. Condition Guarded Disposition Still a Patient Date of Service: Apr 11, 2025 Billing Provider: CHAVEZ PEREZ Sr., MD Cardiology Common Codes: 52892-XRUEDLP INP/OBS CARE (High) Cardiology Procedure Codes: 38416-ABHWAR VESSEL W/I VASC FAM, 82406 -PTCA W/STENT PLACEMENT, 35709-CFPG ADD CORONARY BRANCH (Associated angioplasty and stenting of the LAD and circumflex coronary vasculature. The iliac artery angioplasty. Balloon tamponading as noted. Successful shockwave therapy treatment to the LAD. Intravascular ultrasound evaluation of the left anterior descending coronary artery. Severe peripheral vascular disease with balloon tamponading of contrast extravasating site in right femoral artery.), 52393-OILN HEART CATH W/INTRA INJ CHAVEZ PEREZ Sr., MD Apr 11, 2025 21:08
[2025-04-11] MEDS: METOPROLOL TARTRATE 50 MG TAB PO SCH (21:15)
[2025-04-11] MEDS: IPRATROPIUM BROM 0.5 MG/2.5ML INH SOL NEB SCH (21:38)
[2025-04-11] MEDS: ALBUTEROL SULF 2.5 MG/0.5ML(0.5%) NEB SOLN NEB SCH (21:38)
[2025-04-11] MEDS: SOD CHL 0.45% 1,000 ML IV SCH (21:44)
[2025-04-11] MEDS: cefTRIAXone 1GM/50ML D5W 50 ML IV ONE (21:44)
[2025-04-11] MEDS: DOBUTamine 1000MCG/ML 250 ML IV SCH (21:46)
[2025-04-11] MEDS: ATORVASTATIN 20 MG TAB PO SCH ×2 (21:47→23:07)
[2025-04-11] MEDS ORDERED: METOPROLOL TARTRATE 50 MG TAB PO SCH (22:00)
[2025-04-11] MEDS: AZITHROMYCIN 500MG/ 250ML 250 ML IV ONE (22:59)
[2025-04-11 23:41] LABS: Hematocrit 31.4 % (36.0-46.0); Hemoglobin 10.2 g/dL (12.2-16.2)
[2025-04-12] VITALS (88 sets, daily range): BP systolic 78–107; BP diastolic 26–58; PULSE 112–130; RESP 12–26; TEMP 97.6–99.5; O2SAT 92–100
[2025-04-12 03:02] LABS: Hematocrit 29.0 % (36.0-46.0); Hemoglobin 9.3 g/dL (12.2-16.2); Mean Corpuscular Hemoglobin 28.6 pg (28.0-32.0); Mean Corpuscular Volume 88.8 fL (80.0-100.0); Nucleated Red Blood Cells % 0.0 %
[2025-04-12 03:17] LABS: Alanine Aminotransferase 20 U/L (7-40); Albumin 3.7 g/dL (3.2-4.8); Anion Gap 12 (5-15); BUN/Creatinine Ratio 10.8 (10.0-20.0); Bilirubin, Total 0.5 mg/dL (0.2-1.0); Blood Urea Nitrogen 13 mg/dL (9-23); Carbon Dioxide 23 mmol/L (20-31); Chloride 99 mmol/L (98-107); Potassium 4.7 mmol/L (3.5-5.1); Total Protein 5.8 g/dL (5.7-8.2)
[2025-04-12 03:25] LABS: Alkaline Phosphatase 46 U/L (46-116); Calcium 8.4 mg/dL (8.7-10.4); Glucose 340 mg/dL (74-106); Sodium 134 mmol/L (136-145)
[2025-04-12] MEDS: cefTRIAXone 1GM/50ML D5W 50 ML IV SCH (08:42)
[2025-04-12] MEDS: AZITHROMYCIN 500MG/ 250ML 250 ML IV SCH (09:50)
[2025-04-12] MEDS: CLOPIDOGREL BISULFATE 75 MG TAB PO SCH (09:51)
[2025-04-12] MEDS: glipiZIDE 5 MG TAB PO SCH (09:52)
[2025-04-12] MEDS: PATIENTS OWN MEDICATION (Omeprazole (Omeprazole Dr) 1 CAP) PO SCH (09:53)
[2025-04-12] MEDS ORDERED: ISOSORBIDE MONONITRATE 20 MG TAB PO SCH (10:00)
[2025-04-12] MEDS ORDERED: CLOPIDOGREL BISULFATE 75 MG TAB PO SCH (10:00)
[2025-04-12] MEDS ORDERED: LISINOPRIL 20 MG TAB PO SCH (10:00)
[2025-04-12] MEDS: DOBUTamine 1000MCG/ML 250 ML IV SCH (10:00)
--- NOTE | 2025-04-12 10:07 | DVHPN2 ---
Consult Progress Note Date Seen: Apr 12, 2025 Subjective Review of Systems: CVS:Normal, RESPIRATORY:Normal Objective vital signs Vital Sign Date Time Temp Pulse Resp B/P (MAP) Pulse Ox O2 Delivery O2 Flow Rate FiO2 04/12/25 08:00 115 14 98 Nasal Cannula* 5 40 04/12/25 06:38 102/43 04/11/25 22:00 98.1 98.1 Total Intake and Output 04/11/25 04/11/25 04/12/25 15:00 23:00 07:00 Intake Total 540 ml 157.6 ml 1245.2 ml Output Total 550 ml 600 ml Balance -10 ml 157.6 ml 645.2 ml medications Current Medications Medications Dose Ordered Sig/Tanika Route Start Time Stop Time Status Last Admin Dose Admin Acetaminophen/ Hydrocodone Bitart 1 tab Q4HP PRN PO 04/11/25 14:45 Ondansetron HCl 4 mg Q4HP PRN IV 04/11/25 14:45 Docusate Sodium 100 mg BIDPRN PRN PO 04/11/25 14:45 Acetaminophen 650 mg Q6HP PRN PO 04/11/25 14:45 Nitroglycerin 0.4 mg Q5MINP PRN SL 04/11/25 14:45 Morphine Sulfate 2 mg Q30M PRN IV 04/11/25 14:45 Atorvastatin Calcium 40 mg HS PO 04/11/25 22:00 Glipizide 10 mg DAILY PO 04/12/25 10:00 Isosorbide Mononitrate 30 mg DAILY PO 04/12/25 10:00 Lisinopril 40 mg DAILY PO 04/12/25 10:00 Patient Own Medication 1 cap DAILY PO 04/12/25 10:00 Azithromycin 250 ml @ 125 mls/hr DAILY IV 04/12/25 10:00 Ceftriaxone Sodium 50 ml @ 100 mls/hr DAILY@09 IV 04/12/25 09:00 04/12/25 08:42 100 MLS/HR Ipratropium [place] 0.5 mg Q6HWA NEB 04/11/25 18:00 04/12/25 07:21 0.5 MG Albuterol 2.5 mg Q6HWA NEB 04/11/25 18:00 04/12/25 07:20 2.5 MG Diagnostic Test (Pha) 1 strip ACHS 04/11/25 17:00 04/12/25 06:13 1 STRIP Insulin Human Regular HS SC 04/11/25 22:00 04/11/25 20:49 8 UNITS Insulin Human Regular AC SC 04/11/25 17:00 04/12/25 06:16 9 UNITS Dextrose 50 ml UD PRN IV 04/11/25 15:30 Dobutamine HCl/ Dextrose 250 ml @ 24 mls/hr [id number] IV 04/11/25 18:00 Cancel Atorvastatin Calcium 80 mg HS PO 04/11/25 22:00 04/11/25 23:07 80 MG Metoprolol Tartrate 50 mg BID PO 04/11/25 21:15 Aspirin 81 mg DAILY PO 04/12/25 10:00 Clopidogrel Bisulfate 75 mg DAILY PO 04/12/25 10:00 Sodium Chloride 1,000 ml @ 50 mls/hr Q20H IV 04/11/25 21:15 04/11/25 21:44 50 MLS/HR Dobutamine HCl/ Dextrose 250 ml @ 24 mls/hr [id number] IV 04/11/25 21:15 04/12/25 06:38 14.4 MLS/HR Examination: GENERAL:Abnormal (Pale), LUNGS:Normal, CVS:Normal (Sinus tachycardia 120s bpm), SKIN:Abnormal (Right groin hematoma), NEURO:Normal laboratory and microbiology Laboratory Tests 04/12/25 02:10 Test 04/12/25 02:10 Range/Units Serum Glucose 340 H 74-106 mg/dL Problem List/Assessment/Plan Problem List/Assessment/Plan Acute myocardial infarction Severe multivessel coronary artery disease status post PTCA (04/11/2025) Severe peripheral artery disease status post CONTINUOUS IMPROVEMENT COORDINATOR of the RLE Ischemic cardiomyopathy with LVEF of 20% Acute on chronic decompensated HFrEF Bilateral pneumonia Acute anemia Hypertension Dyslipidemia Type 2 diabetes mellitus Obesity Plan/Recommendation (Dr. Perez) Patient with multivessel coronary artery disease underwent a successful PTCA as well as successful CONTINUOUS IMPROVEMENT COORDINATOR of the right iliac artery on 04/11/2025 (see operative report). She is scheduled for a stage procedure of the right lower extremity with Dr. Perez on 04/13/2025. In the meantime, continue DAPT, lipid lowering agent, inotropic support with dobutamine, and eventually initiate GDMT for HFrEF with stable BP and renal function. Continue tight glycemic control. Monitor ECG changes closely and notify. Monitor H&H closely. Notify Cardiology of right groin area bleed or worsening hematoma. Thank you for allowing us to care for this patient. Please call with any questions or concerns. Critical care time: 45 min. This medical document was created using an electronic medical record system with voice recognition software and computerized dictation system. Although this document has been carefully reviewed, there might still be some phonetic and typographical errors. Occasional wrong-word or ``sound-alike substitutions may have occurred due to the inherent limitations of voice recognition software. These areas are purely typographical due to imperfections of the software programs and do not reflect any compromise in the patient's medical care. Please read the chart carefully and recognize, using context, where these substitutions have occurred. Plan discussed with: Patient, Spouse, Daughter, Other Date of Service: Apr 12, 2025 Billing Provider: PAMELA NICOLE Cardiology Common Codes: 73141-ZQUITDPQ CARE 30-74 MIN PAMELA NICOLE Apr 12, 2025 10:07
[2025-04-12 11:23] LABS: Hematocrit 26.8 % (36.0-46.0); Hemoglobin 8.8 g/dL (12.2-16.2)
[2025-04-12] MEDS: PHENYLEPHRINE INJ 80 MG in SODIUM CHL 0.9% 242 ML IV SCH (12:30)
--- NOTE | 2025-04-12 12:39 | DVH ---
INDICATION: CHF TECHNIQUE: Frontal view of the chest. COMPARISON: CT CT ANGIO CHEST CONTRAST on DOS: 04/11/25, XY CHEST XRAY 1 VIEW on DOS: 04/11/25 FINDINGS: . The heart and mediastinal contours are grossly unremarkable. There is no evidence of pleural disea se. The lungs are clear. The bony structures of the chest are intact without fracture. IMPRESSION: 1. No evidence of acute disease.
--- NOTE | 2025-04-12 17:37 | DVHPN2 ---
Progress Note Date Seen: Apr 12, 2025 Medical Necessity Reason Pt with a Central, PICC or Fol: No Subjective Patient reports: No new complaints Review of Systems: HEENT:Normal, CVS:Normal, RESPIRATORY:Normal, GI:Normal, :Normal, MSK:Normal, NEURO:Normal Objective vital signs Vital Sign Date Time Temp Pulse Resp B/P (MAP) Pulse Ox O2 Delivery O2 Flow Rate FiO2 04/12/25 17:00 126 19 99/41 (60) 97 04/12/25 16:00 Nasal Cannula* 3 32 04/12/25 16:00 97.9 97.9 Total Intake and Output 04/11/25 04/11/25 04/12/25 15:00 23:00 07:00 Intake Total 540 ml 157.6 ml 1245.2 ml Output Total 550 ml 600 ml Balance -10 ml 157.6 ml 645.2 ml medications Current Medications Medications Dose Ordered Sig/Tanika Route Start Time Stop Time Status Last Admin Dose Admin Acetaminophen/ Hydrocodone Bitart 1 tab Q4HP PRN PO 04/11/25 14:45 Ondansetron HCl 4 mg Q4HP PRN IV 04/11/25 14:45 Docusate Sodium 100 mg BIDPRN PRN PO 04/11/25 14:45 Acetaminophen 650 mg Q6HP PRN PO 04/11/25 14:45 Nitroglycerin 0.4 mg Q5MINP PRN SL 04/11/25 14:45 Morphine Sulfate 2 mg Q30M PRN IV 04/11/25 14:45 Atorvastatin Calcium 40 mg HS PO 04/11/25 22:00 Glipizide 10 mg DAILY PO 04/12/25 10:00 04/12/25 09:52 10 MG Patient Own Medication 1 cap DAILY PO 04/12/25 10:00 Azithromycin 250 ml @ 125 mls/hr DAILY IV 04/12/25 10:00 04/12/25 09:50 125 MLS/HR Ceftriaxone Sodium 50 ml @ 100 mls/hr DAILY@09 IV 04/12/25 09:00 04/12/25 08:42 100 MLS/HR Ipratropium Etlan 0.5 mg Q6HWA NEB 04/11/25 18:00 04/12/25 12:58 0.5 MG Albuterol 2.5 mg Q6HWA NEB 04/11/25 18:00 04/12/25 12:58 2.5 MG Diagnostic Test (Pha) 1 strip ACHS 04/11/25 17:00 04/12/25 16:45 1 STRIP Insulin Human Regular HS SC 04/11/25 22:00 04/11/25 20:49 8 UNITS Insulin Human Regular AC SC 04/11/25 17:00 04/12/25 16:52 2 UNITS Dextrose 50 ml UD PRN IV 04/11/25 15:30 Dobutamine HCl/ Dextrose 250 ml @ 24 mls/hr [id number] IV 04/11/25 18:00 Cancel Atorvastatin Calcium 80 mg HS PO 04/11/25 22:00 04/11/25 23:07 80 MG Aspirin 81 mg DAILY PO 04/12/25 10:00 04/12/25 09:52 81 MG Clopidogrel Bisulfate 75 mg DAILY PO 04/12/25 10:00 04/12/25 09:51 75 MG Sodium Chloride 1,000 ml @ 50 mls/hr Q20H IV 04/11/25 21:15 04/11/25 21:44 50 MLS/HR Dobutamine HCl/ Dextrose 250 ml @ 12 mls/hr [id number] IV 04/12/25 10:00 Phenylephrine HCl 80 mg/Sodium Chloride 250 ml @ 7.5 mls/hr Q24H IV 04/12/25 12:30 Examination: GENERAL:Normal, HEENT:Normal, NECK:Normal, LUNGS:Normal, LUNGS:Abnormal (ON OXYGEN, RALES), CVS:Normal, ABDOMEN:Normal, MSK:Normal, SKIN:Normal, NEURO:Normal, :Normal laboratory and microbiology Laboratory Tests 04/12/25 11:02 04/12/25 02:10 Test 04/12/25 02:10 Range/Units Serum Glucose 340 H 74-106 mg/dL Microbiology Date/Time Source Procedure Growth Status 04/11/25 20:52 Nose MRSA Screen - Final Complete Problem List/Assessment/Plan Problem List/Assessment/Plan #1 acute resp failure: on oxygen #2 acute systolic heart failure: hold dobutamine #3 anemia: repeat hemoglobin #4 acute mi s/p stent #5 dm: ssi #6 hyperlipidemia #7 obesity #8 severe pvd Plan discussed with: Patient, Daughter My Orders My Orders Orders - CONNIE NAIDU MD Procedure Category Date Status Time Hemoglobin & LAB 04/12/25 Logged Hematocrit 17:29 Pantoprazole PHA 04/12/25 Transmitted (Protonix) 17:30 Pantoprazole PHA 04/13/25 Transmitted (Protonix) 10:00 Complete Blood Count LAB 04/13/25 Verified 06:00 Comprehensive LAB 04/13/25 Verified Metabolic Panel 06:00 Chest Portable XY 04/13/25 Transmitted 06:00 Hemoglobin A1c LAB 04/13/25 Verified 06:00 Critical Care Time (mins): 68 (critical care time 68 mins) Date of Service: Apr 12, 2025 Billing Provider: CONNIE NAIDU MD Common Visit Codes: [id number] CARE 30-74 MIN CONNIE NAIDU MD Apr 12, 2025 17:37
[2025-04-12] MEDS: PANTOPRAZOLE 40 MG/10 ML VIAL INJ IV ONE (17:58)
[2025-04-12 18:31] LABS: Hematocrit 25.5 % (36.0-46.0); Hemoglobin 8.5 g/dL (12.2-16.2)
[2025-04-12] MEDS: DOCUSATE SOD 100 MG CAP PO PRN (20:43)
--- NOTE | 2025-04-12 22:54 | DVHSR ---
APPROVED REPORT EXAM: Two-dimensional and M-mode echocardiogram with Doppler and color Doppler. Blood Pressure: 102/43 mmHg INDICATION Elevated Trop RISK FACTORS Height: 5'1", Weight: 176 DIMENSIONS LVDd4.9 (3.8-5.7cm)LA (2D)3.5 (1.9-4.0cm)Aortic Root3.1 (2.0-3.7cm) LVDs3.9 (2.5-4.0cm)LA (MM) (1.9-4.0cm)Aortic Cusp Exc1.7 (1.5-2.0cm) EF (%) 42.0 (55-70%)Rt. Atrium3.0 (1.9-4.0cm)Asc. Aorta3.3 cm IVSd0.7 (0.7-1.1cm)RV (D)2.5 (1.8-2.4cm) PWd0.6 (0.7-1.1cm) Mitral Valve MitralMitral Stenosis E wave1.30m/sMV Mean GR.4mmHg A wave1.32m/sMV Peak GR.9mmHg E/A ratio1.02D MVAcm2 DECEL [id number] 1/2 Timems Aortic Valve Aortic ValveAortic Stenosis V11.38m/Jens Mean GR.5mmHg V21.43m/Jens Peak GR.8mmHg LVOT Diameter1.8 (1.8-2.4cm)Doppler AVA2.45cm2 Tricuspid Valve TR Velocity3.18m/s [id number] Other Information Quality : Technically LimitedRhythm : Technically limited study due to body habitus. Conclusion ENTIRE APICAL AND ANTERIOR WALL IS MODERATELY HYPOKINETIC LV SLIGHTLY DILATED LV EF IS 40% AND IS REDUCED TIPS OF MITRAL LEAFLETS ARE CALCIFIED MODERATE DEGREE PULMONARY HYPERTENSION RVSP IS 48 MM OF HG AND IS MODERATELY HIGH NO EFFUSION
[2025-04-13] VITALS (79 sets, daily range): BP systolic 86–114; BP diastolic 40–62; PULSE 110–127; RESP 12–37; TEMP 97.9–100; O2SAT 89–99
[2025-04-13 03:50] LABS: Nucleated Red Blood Cells % 0.1 %
[2025-04-13 03:55] LABS: Hematocrit 25.2 % (36.0-46.0); Hemoglobin 8.5 g/dL (12.2-16.2); Mean Corpuscular Hemoglobin 28.7 pg (28.0-32.0); Mean Corpuscular Volume 85.1 fL (80.0-100.0)
[2025-04-13 04:00] LABS: INR 1.01 (0.9-1.15); Partial Thromboplastin Time 24.9 SEC (24.5-34.5); Prothrombin Time 10.7 sec (9.3-11.8)
[2025-04-13 04:12] LABS: Alanine Aminotransferase 19 U/L (7-40); Alkaline Phosphatase 49 U/L (46-116); Anion Gap 8 (5-15); BUN/Creatinine Ratio 13.3 (10.0-20.0); Blood Urea Nitrogen 17 mg/dL (9-23); Carbon Dioxide 29 mmol/L (20-31); Chloride 99 mmol/L (98-107); Potassium 4.9 mmol/L (3.5-5.1)
[2025-04-13 04:14] LABS: Albumin 3.7 g/dL (3.2-4.8); Bilirubin, Total 1.0 mg/dL (0.2-1.0); Calcium 8.3 mg/dL (8.7-10.4); Glucose 141 mg/dL (74-106); Sodium 136 mmol/L (136-145); Total Protein 5.6 g/dL (5.7-8.2)
--- NOTE | 2025-04-13 05:30 | DVH ---
CHEST RADIOGRAPH Indication: CHF Technique: Single frontal view of the chest was obtained COMPARISON: XY CHEST PORTABLE on DOS: 04/12/25, XY CHEST XRAY 1 VIEW on DOS: 04/11/25 FINDINGS: Lines and Tubes: None Lungs: Mild congestion Pleura: No effusion. No pneumothorax. Cardiomediastinal contours: Unremarkable Bones: Unremarkable IMPRESSION: Mild congestion
[2025-04-13] MEDS: PANTOPRAZOLE 40 MG/10 ML VIAL INJ IV SCH (09:31)
[2025-04-13] MEDS: EMPAGLIFLOZIN 10 MG TAB PO SCH (09:31)
[2025-04-13] MEDS: FUROSEMIDE 20 MG/2 ML VIAL IV SCH (10:00)
--- NOTE | 2025-04-13 10:34 | DVHPNRES ---
Progress Note Date Seen: Apr 13, 2025 Resident Creating Document: DHARA WEI RESIDENT Medical Necessity Reason Pt with a Central, PICC or Fol: Yes The following are medically ne: Abdalla Catheter Subjective Review of Systems Patient is a 79-year-old female with a medical history of hypertension, hyperlipidemia, type 2 diabetes mellitus presented to the ED with a chief complaint of shortness of breath and chest pain. She reported of chest pain left-sided, tightness, constant worsened on excessive relation fluid leak she was brought to the ER with initial ECG showing sinus tachycardia and troponins 128. Subsequent troponin levels increased substantially to 4900 following which cardiology was consulted. Patient had elevated D-dimer levels, CT chest angio was done which showed no pulmonary embolism. Patient was recently at [facility] and was told that she has myocardial infarction and was scheduled for angiography on April 16. We will and cardiology consult patient underwent left heart catheterization on 04/11 which revealed severe coronary artery disease , with 100% occlusion of the LAD, 70-80% stenosis of the superior branch of circumflex and 99% stenosis of the mid segment of the left circumflex swelling which three stents were put. Patient underwent shockwave lithotripsy of NAD, MEDICAL RECORD TRANSCRIBER of right eye near and attempted MEDICAL RECORD TRANSCRIBER of SFA. Post left heart catheterization patient right femoral artery hematoma we will await balloon tamponade was done and pressure dressing was applied. Hemoglobin dropped from 13 to 9. Patient was then shifted due ICU for further care. Medical history: Hypertension, hyperlipidemia, type 2 diabetes Social history: Lives with her and denies smoking, alcohol, drug use Home medications: Amlodipine, isosorbide mononitrate, lisinopril, metoprolol tartrate, atorvastatin, glipizide, metformin, omeprazole Review of systems Patient seen and examined at the bedside. The patient did not report any shortness of breath while on 2 L nasal cannula, no respiratory distress seen. She had soft blood pressures with SBP in 90s and low 100s, patient continues to be tachycardic with a heart rate in 110-120. Urine output noted to be at 750 mL overnight, two bowel movements reported overnight. Patient did not report of any pain, no chest pain, no shortness of breath. Patient is planned for peripheral artery angiogram today. Objective vital signs Vital Sign Date Time Temp Pulse Resp B/P (MAP) Pulse Ox O2 Delivery O2 Flow Rate FiO2 04/13/25 06:45 110 18 97/48 (64) 94 04/13/25 06:10 Nasal Cannula* 2 28 04/13/25 04:00 99.3 99.3 Total Intake and Output 04/12/25 04/12/25 04/13/25 15:00 23:00 07:00 Intake Total 1120.8 ml 344 ml 100 ml Output Total 350 ml 500 ml Balance 1120.8 ml -6 ml -400 ml medications Current Medications Medications Dose Ordered Sig/Tanika Route Start Time Stop Time Status Last Admin Dose Admin Acetaminophen/ Hydrocodone Bitart 1 tab Q4HP PRN PO 04/11/25 14:45 Ondansetron HCl 4 mg Q4HP PRN IV 04/11/25 14:45 Docusate Sodium 100 mg BIDPRN PRN PO 04/11/25 14:45 04/12/25 20:43 100 MG Acetaminophen 650 mg Q6HP PRN PO 04/11/25 14:45 Nitroglycerin 0.4 mg Q5MINP PRN SL 04/11/25 14:45 Morphine Sulfate 2 mg Q30M PRN IV 04/11/25 14:45 Azithromycin 250 ml @ 125 mls/hr DAILY IV 04/12/25 10:00 04/13/25 09:31 125 MLS/HR Ceftriaxone Sodium 50 ml @ 100 mls/hr DAILY@09 IV 04/12/25 09:00 04/13/25 09:05 100 MLS/HR Ipratropium [place] 0.5 mg Q6HWA NEB 04/11/25 18:00 04/13/25 06:14 0.5 MG Diagnostic Test (Pha) 1 strip ACHS 04/11/25 17:00 04/13/25 07:00 1 STRIP Insulin Human Regular HS SC 04/11/25 22:00 04/12/25 21:26 4 UNITS Insulin Human Regular AC SC 04/11/25 17:00 04/12/25 16:52 2 UNITS Dextrose 50 ml UD PRN IV 04/11/25 15:30 Dobutamine HCl/ Dextrose 250 ml @ 24 mls/hr [id number] IV 04/11/25 18:00 Cancel Atorvastatin Calcium 80 mg HS PO 04/11/25 22:00 04/12/25 21:27 80 MG Aspirin 81 mg DAILY PO 04/12/25 10:00 04/13/25 09:31 81 MG Clopidogrel Bisulfate 75 mg DAILY PO 04/12/25 10:00 04/13/25 09:31 75 MG Pantoprazole Sodium 40 mg DAILY IV 04/13/25 10:00 04/13/25 09:31 40 MG Empaglifozin 10 mg DAILY PO 04/13/25 10:00 04/13/25 09:31 10 MG Furosemide 20 mg DAILY IV 04/13/25 10:00 Examination Gen - no pallor, no icterus, no cyanosis, no clubbing, no LAD, no edema . Skin - Patients skin is warm and dry. HEENT - normocephalic, atraumatic, moist mucous membranes. Neck - full ROM, no LAD, no JVD Pulmonary - B/L rales in the mid to lower zones, no wheezing, no stridor. cardiovascular - regular S1,S2 heard, no added sounds, no murmurs heard. capillary refill normal <3 secs. GI - soft, nontender abdomen. no hepatospleenomegaly. Bowel sounds normoactive Neurological - Patient is A/O X 3 . Bilateral upper extremity strength 4/5, bilateral lower extremity strength 4/5, no facial droop, normal speech, no tremor, no sensory deficiets. laboratory and microbiology Laboratory Tests 04/13/25 03:06 Test 04/13/25 03:06 Range/Units Serum Glucose 141 H 74-106 mg/dL Microbiology Date/Time Source Procedure Growth Status 04/11/25 20:52 Nose MRSA Screen - Final Complete Problem List/Assessment/Plan Problem List/Assessment/Plan Cardiovascular NSTEMI type 1 Severe coronary artery disease s/p PCI with a 3 stents Severe dilated Ischemic cardiomyopathy Acute decompensated heart failure Heart failure with reduced ejection fraction Peripheral artery disease, severe s/p angioplasty Right femoral hematoma s/p left heart catheterization - patient underwent left heart catheterization on 04/11 with placement of 3 stents, shockwave therapy to LAD, - dual antiplatelet therapy - atorvastatin - empagliflozin - s/p angioplasty of right iliac - blood pressure soft, chest x-ray shows congestion is improving, held Lasix for today - scheduled for stage procedure for peripheral vascular disease on 04/13 - monitoring H&H, stable, hematoma decreasing in size Respiratory Bilateral pulmonary edema likely from acute decompensated heart failure Possible pneumonia due to gram+/- bacteria - given patient's low blood pressure, Lasix held - sputum cultures pending - on ceftriaxone and azithromycin Endocrinology Uncontrolled Type 2 diabetes mellitus - HbA1c 8.1% - on insulin sliding scale Nephrology KINJAL on CKD likely due to be VMN - monitor kidney function Abdalla's catheter inserted on 04/11 Goals of care discussed with the patient's at bedside. Code status: Full code Critical care time spent: 51 mins Plan discussed with Dr. Morgan. Plan discussed with: Patient, Spouse, Other (LUIS ARMANDO Mcclure) DHARA WEI RESIDENT Apr 13, 2025 10:34
[2025-04-13] MEDS: ANGIOMAX 250 MG VIAL IV ONE ×2 (12:17→15:42)
[2025-04-13] MEDS: HEPARIN SODIUM (PORCINE) 5000 UNITS/ML 1ML VIAL ONE (12:17)
[2025-04-13] MEDS: LIDOCAINE 2%HCL (LOCAL ANESTH.) INJ 20ML MDV ONE (12:18)
[2025-04-13] MEDS: SODIUM CHL 0.9% 50 ML ONE ×2 (12:18→15:42)
[2025-04-13] MEDS: IODIXANOL 320MG/ML 100ML BTL IV ONE ×2 (12:23→14:11)
[2025-04-13] MEDS: HEPARIN IN NS 1000Units/500mL 1,500 ML ONE (12:23)
[2025-04-13] MEDS: VERAPAMIL 2.5MG/ML INJ 2ML VIAL IV ONE (12:35)
[2025-04-13] MEDS: fentaNYL CITRATE 100 MCG/2 ML VL ONE ×2 (12:36→15:17)
[2025-04-13] MEDS: MIDAZOLAM HCL 2MG/2ML 2ml VIAL (1mg/ml) ONE ×2 (12:36→15:17)
--- NOTE | 2025-04-13 16:33 | DVH ---
Exam: US US GUIDED VASCULAR ACCESS Clinical History: LOWER EXTREMITY ANGIOGRAM PEDAL ACCESS Comparison: None Findings: Targeted sonographic evaluation of the pedal artery was obtained utilizing grayscale and color Dopple r imaging. IMPRESSION: Sonographic assistance for pedal artery access. Please refer to procedural report for detailed findin gs.
--- NOTE | 2025-04-13 18:04 | DVHOP2 ---
Operative Report - 2 Report Details Date: 04/13/25 Preop Diagnosis: Severe peripheral vascular disease Postop Diagnosis: Severe peripheral vascular disease Surgeon: Chavez Perez MD Anesthesiologist: Conscious sedation Anesthesia: Mac, Local Consent: The patient was informed of the risks and benefits of the procedure. These inclu de but are not limited to complications of anesthesia, postoperative infection, incomplete relief of symptoms, recurrence of symptoms, damage to blood vessels, nerves and tendons, deep venous thrombosis, pulmonary embolism and possible need for repeat surgery in the future. Complications: No complications Estimated Blood Loss: 10 cc Findings: Severe peripheral vascular disease. Occlusion of the distals SFA. Collateralization from internal iliac to profunda and distal SFA Indications for Surgery: Severe peripheral vascular disease Name of Procedure Performed Angiographic evaluation of right anterior tibial artery right popliteal and tibioperoneal trunk as well as peroneal artery. Attempted angioplasty of the SFA Procedure Details Procedure Details: Prior local anesthesia with 2% lidocaine to the right distal anterior tibial area above with the ankle, under fluoroscopic and ultrasound guidance we gained access into the distal anterior tibial artery. We placed a five [place] sheath and performed angioplasty of the mid anterior tibial and proximal anterior tibial artery notable pass catheters. We then performed an angiographic evaluation of the distal superficial and popliteal arteries. We noted a complete occlusion of the distal superficial femoral artery and collateralization of the popliteal artery via collaterals from the profunda right. On previous evaluation it is noted that the patient has collateralization from the internal iliac to the profunda. There was good flow of the fluid from the tibial and peroneal artery. There was moderate calcification of the anterior tibial and tibioperoneal trunk patency of the peroneal to the ankle. The posterior tibial artery is occluded. We attempted a retrograde approach with multiple guidewires and catheters. We placed Terumo Navicross catheters including the 0.14 , 0.18 and 035. We were not able to cross into the true lumen in the distal SFA. We were not able to break the distal cap and enter into a subintimal plane. There was significant calcification and severe atherosclerotic disease of this vessel. After several attempts with different wires we terminated the procedure. We pulled the sheath. Patient tolerated the procedure well there were no complications. We will continue the new to treat her medically and consider an antegrade approach at a future date. Condition Guarded Disposition Still a Patient Date of Service: Apr 13, 2025 Billing Provider: CHAVEZ PEREZ Sr., MD Cardiology Common Codes: 52812-[id number] INP/OBS CARE (High) CHAVEZ PEREZ Sr., MD Apr 13, 2025 18:04
[2025-04-13] MEDS: MORPHINE SULFATE INJ 2 MG/ml SYRG IM ONE (18:48)
[2025-04-13] MEDS: HYDROmorphone HCL 2 MG/ML VL/or syr IV PRN (20:54)
[2025-04-14] VITALS (67 sets, daily range): BP systolic 93–119; BP diastolic 51–71; PULSE 100–141; RESP 11–23; TEMP 98.3–99.8; O2SAT 60–100
[2025-04-14 03:55] LABS: Hemoglobin 7.4 g/dL (12.2-16.2)
[2025-04-14 03:56] LABS: Hematocrit 22.4 % (36.0-46.0); Mean Corpuscular Hemoglobin 28.7 pg (28.0-32.0); Mean Corpuscular Volume 87.5 fL (80.0-100.0); Nucleated Red Blood Cells % 0.0 %
[2025-04-14 04:22] LABS: Alanine Aminotransferase 20 U/L (7-40); Albumin 3.9 g/dL (3.2-4.8); Alkaline Phosphatase 58 U/L (46-116); Anion Gap 12 (5-15); BUN/Creatinine Ratio 11.0 (10.0-20.0); Blood Urea Nitrogen 19 mg/dL (9-23); Carbon Dioxide 24 mmol/L (20-31); Chloride 98 mmol/L (98-107); Potassium 4.7 mmol/L (3.5-5.1); Sodium 134 mmol/L (136-145); Total Protein 5.9 g/dL (5.7-8.2)
[2025-04-14 04:23] LABS: Bilirubin, Total 1.1 mg/dL (0.2-1.0); Calcium 8.3 mg/dL (8.7-10.4); Glucose 163 mg/dL (74-106)
--- NOTE | 2025-04-14 06:24 | DVH ---
EXAM: XY CHEST XRAY 1 VIEW HISTORY: acute decompensated HF COMPARISON: XY CHEST PORTABLE on DOS: 04/13/25, XY CHEST PORTABLE on DOS: 04/12/25, CT CT ANGIO CHEST CON TRAST on DOS: 04/11/25, XY CHEST XRAY 1 VIEW on DOS: 04/11/25, CT scan of the chest dated 04/11/2025. TECHNIQUE: Portable AP view of the chest was performed. FINDINGS: There are diffuse bilateral interstitial opacities, increased. Compared with chest x-ray performed 1 day earlier. No pneumothorax or new consolidative infiltrates. The heart is not enlarged. There is an old posttraumatic deformity of the right proximal humerus. IMPRESSION: Increased interstitial opacities suggestive of worsening CHF.
--- NOTE | 2025-04-14 15:08 | DVHPN2 ---
Progress Note - Dictate Date Seen: Apr 14, 2025 Medical Necessity Reason Pt with a Central, PICC or Fol: Yes The following are medically ne: Abdalla Catheter vital signs Vital Sign Date Time Temp Pulse Resp B/P (MAP) Pulse Ox O2 Delivery O2 Flow Rate FiO2 04/14/25 13:30 141 14 103/65 (78) 90 04/14/25 12:00 99.0 99.0 04/14/25 12:00 Nasal Cannula* 3 32 Total Intake and Output 04/13/25 04/13/25 04/14/25 15:00 23:00 07:00 Intake Total 300 ml 120 ml 180 ml Output Total 600 ml 200 ml Balance 300 ml -480 ml -20 ml medications Current Medications Medications Dose Ordered Sig/Tanika Route Start Time Stop Time Status Last Admin Dose Admin Acetaminophen 650 mg Q6HP PRN PO 04/11/25 14:45 Nitroglycerin 0.4 mg Q5MINP PRN SL 04/11/25 14:45 Morphine Sulfate 2 mg Q30M PRN IV 04/11/25 14:45 Azithromycin 250 ml @ 125 mls/hr DAILY IV 04/12/25 10:00 04/14/25 09:34 125 MLS/HR Ceftriaxone Sodium 50 ml @ 100 mls/hr DAILY@09 IV 04/12/25 09:00 04/14/25 09:33 100 MLS/HR Ipratropium [place] 0.5 mg Q6HWA NEB 04/11/25 18:00 04/14/25 11:20 0.5 MG Diagnostic Test (Pha) 1 strip ACHS 04/11/25 17:00 04/14/25 11:56 1 STRIP Insulin Human Regular HS SC 04/11/25 22:00 04/13/25 23:25 3 UNITS Insulin Human Regular AC SC 04/11/25 17:00 04/14/25 11:58 6 UNITS Dextrose 50 ml UD PRN IV 04/11/25 15:30 Dobutamine HCl/ Dextrose 250 ml @ 24 mls/hr [id number] IV 04/11/25 18:00 Cancel Atorvastatin Calcium 80 mg HS PO 04/11/25 22:00 04/13/25 23:21 80 MG Aspirin 81 mg DAILY PO 04/12/25 10:00 04/14/25 09:34 81 MG Clopidogrel Bisulfate 75 mg DAILY PO 04/12/25 10:00 04/14/25 09:34 75 MG Pantoprazole Sodium 40 mg DAILY IV 04/13/25 10:00 04/14/25 09:34 40 MG Empaglifozin 10 mg DAILY PO 04/13/25 10:00 04/14/25 09:34 10 MG Furosemide 20 mg DAILY IV 04/13/25 10:00 04/14/25 09:34 20 MG Acetaminophen/ Hydrocodone Bitart 1 tab Q6HPRN PRN PO 04/13/25 19:15 Hydromorphone HCl 0.5 mg Q4HPRN PRN IV 04/13/25 20:15 04/14/25 05:45 0.5 MG laboratory and microbiology Laboratory Tests 04/14/25 03:01 Test 04/14/25 03:01 Range/Units Serum Glucose 163 H 74-106 mg/dL Assessment/Plan Covering for Dr. Valentino Impression Acute hypoxemic respiratory failure Pulmonary congestion Pneumonia STEMI Patient seen and examined Events Low oxygen requirements On 5 liters nasal cannula No new complaints S/p PCI Labs and imaging reviewed Chest x-ray shows interstitial opacities Hemoglobin trending down Management Supplemental oxygen Titrate to maintain sats 90% or above Incentive spirometry Continue antibiotics F/u cultures Bronchodilators Diurese Monitor renal function Monitor electrolytes Supplement as needed F/u cardiology DVT prophylaxis Dietary Evaluation Review Comments: 1) Advance CCHO 60gm + cardiac diet as medically feasible 2) Refer Railroad Car Inspector for diabetes education 3) Monitor NPO status, lab values, weight trend, and I/O Expected Outcomes/Goals: To meet >75% estimated needs Lab values to improve Fu 2-3 days Plan discussed with: Patient BASIL SMYTH MD Apr 14, 2025 15:08
[2025-04-14 15:13] LABS: Hematocrit 26.2 % (36.0-46.0); Hemoglobin 8.7 g/dL (12.2-16.2)
[2025-04-14] MEDS: HYDROcodone-ACET 5/325MG TAB PO PRN (15:31)
--- NOTE | 2025-04-14 16:01 | DVHPN2 ---
Consult Progress Note Date Seen: Apr 14, 2025 Subjective Review of Systems: CVS:Normal, RESPIRATORY:Normal, NEURO:Normal Objective vital signs Vital Sign Date Time Temp Pulse Resp B/P (MAP) Pulse Ox O2 Delivery O2 Flow Rate FiO2 04/14/25 15:30 134 16 110/56 (74) 95 04/14/25 14:00 Nasal Cannula* 3 32 04/14/25 12:00 99.0 99.0 Total Intake and Output 04/13/25 04/13/25 04/14/25 15:00 23:00 07:00 Intake Total 300 ml 120 ml 180 ml Output Total 600 ml 200 ml Balance 300 ml -480 ml -20 ml medications Current Medications Medications Dose Ordered Sig/Tanika Route Start Time Stop Time Status Last Admin Dose Admin Acetaminophen 650 mg Q6HP PRN PO 04/11/25 14:45 Nitroglycerin 0.4 mg Q5MINP PRN SL 04/11/25 14:45 Morphine Sulfate 2 mg Q30M PRN IV 04/11/25 14:45 Azithromycin 250 ml @ 125 mls/hr DAILY IV 04/12/25 10:00 04/14/25 09:34 125 MLS/HR Ceftriaxone Sodium 50 ml @ 100 mls/hr DAILY@09 IV 04/12/25 09:00 04/14/25 09:33 100 MLS/HR Ipratropium [place] 0.5 mg Q6HWA NEB 04/11/25 18:00 04/14/25 11:20 0.5 MG Diagnostic Test (Pha) 1 strip ACHS 04/11/25 17:00 04/14/25 11:56 1 STRIP Insulin Human Regular HS SC 04/11/25 22:00 04/13/25 23:25 3 UNITS Insulin Human Regular AC SC 04/11/25 17:00 04/14/25 11:58 6 UNITS Dextrose 50 ml UD PRN IV 04/11/25 15:30 Dobutamine HCl/ Dextrose 250 ml @ 24 mls/hr [id number] IV 04/11/25 18:00 Cancel Atorvastatin Calcium 80 mg HS PO 04/11/25 22:00 04/13/25 23:21 80 MG Aspirin 81 mg DAILY PO 04/12/25 10:00 04/14/25 09:34 81 MG Clopidogrel Bisulfate 75 mg DAILY PO 04/12/25 10:00 04/14/25 09:34 75 MG Pantoprazole Sodium 40 mg DAILY IV 04/13/25 10:00 04/14/25 09:34 40 MG Empaglifozin 10 mg DAILY PO 04/13/25 10:00 04/14/25 09:34 10 MG Furosemide 20 mg DAILY IV 04/13/25 10:00 04/14/25 09:34 20 MG Acetaminophen/ Hydrocodone Bitart 1 tab Q6HPRN PRN PO 04/13/25 19:15 04/14/25 15:31 1 TAB Hydromorphone HCl 0.5 mg Q4HPRN PRN IV 04/13/25 20:15 04/14/25 05:45 0.5 MG Examination: GENERAL:Abnormal (Pale), LUNGS:Abnormal (Bilateral crackles), CVS:Normal (Sinus tacjucardoa), MSK:Abnormal (Right groin hematoma), NEURO:Normal laboratory and microbiology Laboratory Tests 04/14/25 15:00 04/14/25 03:01 Test 04/14/25 03:01 Range/Units Serum Glucose 163 H 74-106 mg/dL Problem List/Assessment/Plan Problem List/Assessment/Plan Acute myocardial infarction Severe multivessel coronary artery disease status post PTCA (04/11/2025) Severe peripheral artery disease status post MICROSYSTEMS ENGINEER of the RLE Ischemic cardiomyopathy with LVEF of 20% Acute on chronic decompensated HFrEF Bilateral pneumonia Acute anemia Hypertension Dyslipidemia Type 2 diabetes mellitus Acute kidney injury Obesity Plan/Recommendation (Dr. Perez) Patient with multivessel coronary artery disease underwent a successful PTCA as well as successful MICROSYSTEMS ENGINEER of the right iliac artery on 04/11/2025 (see operative report). Continue DAPT, lipid lowering agent, and eventually initiate GDMT for HFrEF with stable BP and renal function. Obtain a peripheral artery US of the RLE rule out pseudoaneurysm. Continue tight glycemic control. Monitor ECG changes closely and notify. Monitor H&H closely. Notify Cardiology of right groin area bleed or worsening hematoma. Thank you for allowing us to care for this patient. Please call with any questions or concerns. Critical care time: 45 min. This medical document was created using an electronic medical record system with voice recognition software and computerized dictation system. Although this document has been carefully reviewed, there might still be some phonetic and typographical errors. Occasional wrong-word or ``sound-alike substitutions may have occurred due to the inherent limitations of voice recognition software. These areas are purely typographical due to imperfections of the software programs and do not reflect any compromise in the patient's medical care. Please read the chart carefully and recognize, using context, where these substitutions have occurred. Plan discussed with: Patient, Spouse, Daughter, Other Dietary Evaluation Review Comments: 1) Advance CCHO 60gm + cardiac diet as medically feasible 2) Refer Religious Assistant for diabetes education 3) Monitor NPO status, lab values, weight trend, and I/O Expected Outcomes/Goals: To meet >75% estimated needs Lab values to improve Fu 2-3 days Date of Service: Apr 14, 2025 Billing Provider: PAMELA NICOLE Cardiology Common Codes: 55937-[id number] CARE 30-74 MIN PAMELA NICOLE Apr 14, 2025 16:01
--- NOTE | 2025-04-14 17:14 | DVH ---
Right Lower Extremity Arterial Duplex Clinical History: Increased right groin hematoma rule ot pseudoaneurysm Comparison: None Technique: Duplex Doppler evaluation including color Doppler and spectral/pulsed waveform analysis of the lower extremity arteries was performed. Findings/ IMPRESSION: No appreciable hematoma or pseudoaneurysm at this time in the right groin. There is nonvisualization of flow in the right common femoral artery, deep femoral artery, mid and di stal superficial femoral artery and calf vessels. Monophasic arterial waveforms are present in the right lower extremity. Clinical correlation advised. Vascular surgery or cardiology consultation can be considered if clinic ally indicated. Sluggish flow (diminished velocities) visualized in the proximal right superficial femoral artery an d popliteal artery.
--- NOTE | 2025-04-14 17:57 | DVHPN2 ---
Subjective Patient denies any symptoms at this time Reviewed: Care Plan, H&P, Labs, Medications Changes from previous H/P or p: No Changes General: Per HPI Eyes: No Pain, No Vision change, No Conjunctivae inflammation, No Eyelid inflammation, No Other, No Redness ENT: No Ear pain, No Ear discharge, No Nose pain, No Nose discharge, No Nose congestion, No Mouth pain, No Mouth swelling, No Throat pain, No Throat swelling, No Other Cardiovascular: Chest Pain, Palpitations; No Orthopnea, No Paroxysmal Noc. Dyspnea, No Edema, No Lt Headedness, No Other Respiratory: No Cough, No Dry; Shortness of breath, SOB with excertion, W heezing; No Hemoptysis, No Pleuritic Pain, No Sputum, No Other Gastrointestinal: No Nausea, No Vomiting, No Abdominal Pain, No Diarrhea, No Constipation, No Melena, No Hematochezia, No Other Genitourinary: No Dysuria, No Frequency, No Incontinence, No Hematuria, No Retention, No Other Musculoskeletal: No other, No neck pain, No shoulder pain, No arm pain, No back pain, No hand pain, No leg pain, No foot pain Skin: No Rash, No Lesions, No Jaundice, No Bruising, No Other Objective Vitals Vital Signs Date Time Temp Pulse Resp B/P (MAP) Pulse Ox O2 Delivery O2 Flow Rate FiO2 04/14/25 16:00 18 93 Nasal Cannula* 3 32 04/14/25 16:00 134 04/14/25 16:00 99.0 105/59 (74) 99.0 Intake/Output Intake and Output 04/14/25 07:00 Intake Total 600 ml Output Total 800 ml Balance -200 ml Intake Oral 300 ml IV Total 300 ml Output Urine Total 800 ml General Appearance: Alert, Oriented X3, Cooperative, mild distress HEENT: Atraumatic, PERRLA Cardiovascular: Normal S1, Normal S2 Genitourinary: No Apparent Abnormalities (Abdalla catheterization) Musculoskeletal: Normal sensory function, Normal motor function Extremities: Other (Hematoma to right inguinal area) Skin: Dry, Intact Psych/Mental Status: Mental status NL, Mood NL Medications Current Medications Medications Dose Ordered Sig/Tanika Route Start Time Stop Time Status Last Admin Dose Admin Acetaminophen 650 mg Q6HP PRN PO 04/11/25 14:45 Nitroglycerin 0.4 mg Q5MINP PRN SL 04/11/25 14:45 Morphine Sulfate 2 mg Q30M PRN IV 04/11/25 14:45 Azithromycin 250 ml @ 125 mls/hr DAILY IV 04/12/25 10:00 04/14/25 09:34 125 MLS/HR Ceftriaxone Sodium 50 ml @ 100 mls/hr DAILY@09 IV 04/12/25 09:00 04/14/25 09:33 100 MLS/HR Ipratropium [place] 0.5 mg Q6HWA NEB 04/11/25 18:00 04/14/25 11:20 0.5 MG Diagnostic Test (Pha) 1 strip ACHS 04/11/25 17:00 04/14/25 16:52 1 STRIP Insulin Human Regular HS SC 04/11/25 22:00 04/13/25 23:25 3 UNITS Insulin Human Regular AC SC 04/11/25 17:00 04/14/25 16:54 3 UNITS Dextrose 50 ml UD PRN IV 04/11/25 15:30 Dobutamine HCl/ Dextrose 250 ml @ 24 mls/hr [id number] IV 04/11/25 18:00 Cancel Atorvastatin Calcium 80 mg HS PO 04/11/25 22:00 04/13/25 23:21 80 MG Aspirin 81 mg DAILY PO 04/12/25 10:00 04/14/25 09:34 81 MG Clopidogrel Bisulfate 75 mg DAILY PO 04/12/25 10:00 04/14/25 09:34 75 MG Pantoprazole Sodium 40 mg DAILY IV 04/13/25 10:00 04/14/25 09:34 40 MG Furosemide 20 mg DAILY IV 04/13/25 10:00 04/14/25 09:34 20 MG Acetaminophen/ Hydrocodone Bitart 1 tab Q6HPRN PRN PO 04/13/25 19:15 04/14/25 15:31 1 TAB Hydromorphone HCl 0.5 mg Q4HPRN PRN IV 04/13/25 20:15 04/14/25 05:45 0.5 MG Laboratory Results Laboratory Tests 04/14/25 03:01 04/14/25 15:00 Chemistry Test 04/14/25 03:01 Albumin 3.9 g/dL (3.2-4.8) Calcium Level 8.3 mg/dL (8.7-10.4) L Total Protein 5.9 g/dL (5.7-8.2) Cardiac Markers Test 04/14/25 15:00 B-Type Natriuretic Peptide 1628.04 pg/mL (0-100) LFT Test 04/14/25 03:01 Alanine Aminotransferase (ALT) 20 U/L (7-40) Alkaline Phosphatase 58 U/L (46-116) Aspartate Amino Transferase (AST) 56 U/L (13-40) H Total Bilirubin 1.1 mg/dL (0.2-1.0) H Urinalysis Test 04/11/25 08:40 Urine Color Colorless (Yellow) Urine Clarity Clear (Clear) Urine pH 5.0 (5.0-9.0) Urine Specific [place] 1.008 (1.001-1.035) Urine Protein Trace (Negative) H Urine Ketones Negative (Negative) Urine Blood 1+ /uL (Negative) H Urine Nitrite Negative (Negative) Urine Bilirubin Negative (Negative) Urine Urobilinogen Normal mg/dL (Negative) Urine Leukocyte Esterase Negative /uL (Negative) Urine RBC 23 /hpf (0 - 4) Urine Microscopic WBC 1 /HPF (0-5) Urine Squamous Epithelial Cells Few /hpf (<5) Urine Bacteria None seen /hpf (None Seen) Urine Hyaline Casts Few /lpf (0 - 2) Urine Glucose 1+ mg/dL (Normal) H Microbiology Microbiology Date/Time Source Procedure Growth Status 04/11/25 20:52 Nose MRSA Screen - Final Complete Labs and/or images reviewed: Labs reviewed by me, Image(s) reviewed by me Assessment/Plan Assessment/Plan Impression: -NSTEMI type 1, status post left heart catheterization with PTCA and stent placement to LAD and circumflex -acute kidney injury, vasomotor nephropathy -acute systolic heart failure with pulmonary vascular congestion -severe pulmonary vascular disease -obesity -diabetes mellitus -anemia Plan: -continue dual antiplatelet therapy -IV diuresis, continue Jardiance -patient received 1 unit PRBC -lower extremity arterial study performed. Noted occlusions. Assessed the patient to have warm lower extremities bilaterally. No increase in right inguinal hematoma. -regular insulin sliding scale -check CPK for possible limb ischemia -given multifocal atrial tachycardia, decreased blood pressure, trial of did to be given -repeat labs and chest x-ray in a.m. -patient unstable to transfer to [facility]. Critical care time spent with patient discussing and formulating plan of care: 40 minutes. This does not include time spent performing procedures. This medical document was created using an electronic medical record system with [employer] dictation system. Although this document has been carefully reviewed, there may still be some phonetic and typographical errors. These areas are purely typographical due to imperfections of the software programs, and do not reflect any compromise in the patient's medical care. Plan discussed with: Patient, Other (RN) My Orders Orders - RADHA WOLF NP Procedure Category Date Status Time Creatine Kinase LAB 04/14/25 In Process 17:30 Digoxin Injection PHA 04/14/25 Verified (Lanoxin Injection) 18:00 Date of Service: Apr 14, 2025 Billing Provider: RADHA WOLF NP Common Visit Codes: [id number] CARE 30-74 MIN RADHA WOLF NP Apr 14, 2025 17:57
[2025-04-14] MEDS: DIGOXIN (250MCG/ML) 2 ML AMPULE IV ONE (18:40)
[2025-04-14 22:16] LABS: Hematocrit 26.0 % (36.0-46.0); Hemoglobin 8.5 g/dL (12.2-16.2)
[2025-04-15] VITALS (36 sets, daily range): BP systolic 95–129; BP diastolic 44–71; PULSE 100–130; RESP 8–23; TEMP 98.5–99; O2SAT 89–100
[2025-04-15 04:31] LABS: Alanine Aminotransferase 20 U/L (7-40); Albumin 4.0 g/dL (3.2-4.8); Alkaline Phosphatase 84 U/L (46-116); Anion Gap 12 (5-15); BUN/Creatinine Ratio 7.1 (10.0-20.0); Blood Urea Nitrogen 17 mg/dL (9-23); Carbon Dioxide 22 mmol/L (20-31); Potassium 4.5 mmol/L (3.5-5.1); Total Protein 6.2 g/dL (5.7-8.2)
[2025-04-15 04:33] LABS: Bilirubin, Total 1.3 mg/dL (0.2-1.0); Calcium 8.0 mg/dL (8.7-10.4); Chloride 98 mmol/L (98-107); Glucose 124 mg/dL (74-106); Sodium 132 mmol/L (136-145)
[2025-04-15 07:10] LABS: Hematocrit 27.7 % (36.0-46.0); Hemoglobin 9.1 g/dL (12.2-16.2); Mean Corpuscular Hemoglobin 28.8 pg (28.0-32.0); Mean Corpuscular Volume 87.7 fL (80.0-100.0); Nucleated Red Blood Cells % 0.3 %
--- NOTE | 2025-04-15 08:24 | DVHPN2 ---
Subjective Patient denies any symptoms at this time Reviewed: Care Plan, H&P, Labs, Medications Changes from previous H/P or p: No Changes General: Per HPI Eyes: No Pain, No Vision change, No Conjunctivae inflammation, No Eyelid inflammation, No Other, No Redness ENT: No Ear pain, No Ear discharge, No Nose pain, No Nose discharge, No Nose congestion, No Mouth pain, No Mouth swelling, No Throat pain, No Throat swelling, No Other Cardiovascular: Chest Pain, Palpitations; No Orthopnea, No Paroxysmal Noc. Dyspnea, No Edema, No Lt Headedness, No Other Respiratory: No Cough, No Dry; Shortness of breath, SOB with excertion, W heezing; No Hemoptysis, No Pleuritic Pain, No Sputum, No Other Gastrointestinal: No Nausea, No Vomiting, No Abdominal Pain, No Diarrhea, No Constipation, No Melena, No Hematochezia, No Other Genitourinary: No Dysuria, No Frequency, No Incontinence, No Hematuria, No Retention, No Other Musculoskeletal: No other, No neck pain, No shoulder pain, No arm pain, No back pain, No hand pain, No leg pain, No foot pain Skin: No Rash, No Lesions, No Jaundice, No Bruising, No Other Objective Vitals Vital Signs Date Time Temp Pulse Resp B/P (MAP) Pulse Ox O2 Delivery O2 Flow Rate FiO2 04/15/25 07:10 114 12 100 04/15/25 07:04 Nasal Cannula 4.0 04/15/25 07:04 36 04/15/25 07:00 112/61 (78) 04/15/25 04:00 99.0 99.0 Intake/Output Intake and Output 04/15/25 07:00 Intake Total 1500 ml Output Total 400 ml Balance 1100 ml Intake Oral 900 ml IV Total 300 ml Blood Product 300 ml Output Urine Total 400 ml General Appearance: Alert, Oriented X3, Cooperative, mild distress HEENT: Atraumatic, PERRLA Cardiovascular: Normal S1, Normal S2 Genitourinary: No Apparent Abnormalities (Abdalla catheterization) Musculoskeletal: Normal sensory function, Normal motor function Extremities: Other (Hematoma to right inguinal area) Skin: Dry, Intact Psych/Mental Status: Mental status NL, Mood NL Medications Current Medications Medications Dose Ordered Sig/Tanika Route Start Time Stop Time Status Last Admin Dose Admin Acetaminophen 650 mg Q6HP PRN PO 04/11/25 14:45 Nitroglycerin 0.4 mg Q5MINP PRN SL 04/11/25 14:45 Morphine Sulfate 2 mg Q30M PRN IV 04/11/25 14:45 Azithromycin 250 ml @ 125 mls/hr DAILY IV 04/12/25 10:00 04/14/25 09:34 125 MLS/HR Ceftriaxone Sodium 50 ml @ 100 mls/hr DAILY@09 IV 04/12/25 09:00 04/14/25 09:33 100 MLS/HR Ipratropium [place] 0.5 mg Q6HWA NEB 04/11/25 18:00 04/15/25 07:04 0.5 MG Diagnostic Test (Pha) 1 strip ACHS 04/11/25 17:00 04/15/25 06:34 1 STRIP Insulin Human Regular HS SC 04/11/25 22:00 04/14/25 21:08 2 UNITS Insulin Human Regular AC SC 04/11/25 17:00 04/15/25 06:37 2 UNITS Dextrose 50 ml UD PRN IV 04/11/25 15:30 Dobutamine HCl/ Dextrose 250 ml @ 24 mls/hr [id number] IV 04/11/25 18:00 Cancel Atorvastatin Calcium 80 mg HS PO 04/11/25 22:00 04/14/25 21:05 80 MG Aspirin 81 mg DAILY PO 04/12/25 10:00 04/14/25 09:34 81 MG Clopidogrel Bisulfate 75 mg DAILY PO 04/12/25 10:00 04/14/25 09:34 75 MG Pantoprazole Sodium 40 mg DAILY IV 04/13/25 10:00 04/14/25 09:34 40 MG Furosemide 20 mg DAILY IV 04/13/25 10:00 04/14/25 09:34 20 MG Acetaminophen/ Hydrocodone Bitart 1 tab Q6HPRN PRN PO 04/13/25 19:15 04/14/25 21:14 1 TAB Hydromorphone HCl 0.5 mg Q4HPRN PRN IV 04/13/25 20:15 04/15/25 00:27 0.5 MG Laboratory Results Laboratory Tests 04/15/25 03:10 04/15/25 06:27 Chemistry Test 04/15/25 03:10 Albumin 4.0 g/dL (3.2-4.8) Calcium Level 8.0 mg/dL (8.7-10.4) L Total Protein 6.2 g/dL (5.7-8.2) Cardiac Markers Test 04/14/25 15:00 04/15/25 06:27 B-Type Natriuretic Peptide 1628.04 pg/mL (0-100) 1406.41 pg/mL (0-100) LFT Test 04/15/25 03:10 Alanine Aminotransferase (ALT) 20 U/L (7-40) Alkaline Phosphatase 84 U/L (46-116) Aspartate Amino Transferase (AST) 62 U/L (13-40) H Total Bilirubin 1.3 mg/dL (0.2-1.0) H Urinalysis Test 04/11/25 08:40 Urine Color Colorless (Yellow) Urine Clarity Clear (Clear) Urine pH 5.0 (5.0-9.0) Urine Specific [place] 1.008 (1.001-1.035) Urine Protein Trace (Negative) H Urine Ketones Negative (Negative) Urine Blood 1+ /uL (Negative) H Urine Nitrite Negative (Negative) Urine Bilirubin Negative (Negative) Urine Urobilinogen Normal mg/dL (Negative) Urine Leukocyte Esterase Negative /uL (Negative) Urine RBC 23 /hpf (0 - 4) Urine Microscopic WBC 1 /HPF (0-5) Urine Squamous Epithelial Cells Few /hpf (<5) Urine Bacteria None seen /hpf (None Seen) Urine Hyaline Casts Few /lpf (0 - 2) Urine Glucose 1+ mg/dL (Normal) H Microbiology Microbiology Date/Time Source Procedure Growth Status 04/14/25 03:21 Blood Blood Culture - Preliminary NO GROWTH AFTER 24 HOURS OF INCUBATION. Resulted 04/11/25 20:52 Nose MRSA Screen - Final Complete Labs and/or images reviewed: Labs reviewed by me, Image(s) reviewed by me Assessment/Plan Assessment/Plan Impression: -NSTEMI type 1, status post left heart catheterization with PTCA and stent placement to LAD and circumflex -acute kidney injury, vasomotor nephropathy -acute systolic heart failure with pulmonary vascular congestion -severe pulmonary vascular disease -obesity -diabetes mellitus -anemia -? Contrast induced nephropathy Plan: Events: Worsening renal function. Right inguinal area with improvement of hematoma. CPK mildly elevated. Bilateral lower extremities warm to touch. Continues to be tachycardic, probable MAT. Blood pressure improving. -nephrology consultation -continue dual antiplatelet therapy -IV diuresis, continue Jardiance -lower extremity arterial study performed. Noted occlusions. Assessed the patient to have warm lower extremities bilaterally. No increase in right inguinal hematoma. -regular insulin sliding scale -repeat labs and chest x-ray in a.m. -patient unstable to transfer to [facility]. Critical care time spent with patient discussing and formulating plan of care: 40 minutes. This does not include time spent performing procedures. This medical document was created using an electronic medical record system with [employer] dictation system. Although this document has been carefully reviewed, there may still be some phonetic and typographical errors. These areas are purely typographical due to imperfections of the software programs, and do not reflect any compromise in the patient's medical care. Plan discussed with: Patient, Other (RN) My Orders Orders - RADHA WOLF NP Procedure Category Date Status Time *[facility] CONS 04/15/25 Transmitted -[place] 08:19 Date of Service: Apr 15, 2025 Billing Provider: RADHA WOLF NP Common Visit Codes: [id number] INP/OBS CARE(HIGH) RADHA WOLF NP Apr 15, 2025 08:24
--- NOTE | 2025-04-15 11:23 | DVHPN2 ---
Consult Progress Note Date Seen: Apr 15, 2025 Subjective Review of Systems: CVS:Normal, RESPIRATORY:Normal, NEURO:Normal Other Systems: Denies any cardiac symptoms Objective vital signs Vital Sign Date Time Temp Pulse Resp B/P (MAP) Pulse Ox O2 Delivery O2 Flow Rate FiO2 04/15/25 10:00 14 96 Nasal Cannula* 4 36 04/15/25 10:00 112 04/15/25 09:50 117/58 04/15/25 08:00 98.5 98.5 Total Intake and Output 04/14/25 04/14/25 04/15/25 15:00 23:00 07:00 Intake Total 960 ml 420 ml 120 ml Output Total 250 ml 150 ml Balance 960 ml 170 ml -30 ml medications Current Medications Medications Dose Ordered Sig/Tanika Route Start Time Stop Time Status Last Admin Dose Admin Acetaminophen 650 mg Q6HP PRN PO 04/11/25 14:45 Nitroglycerin 0.4 mg Q5MINP PRN SL 04/11/25 14:45 Morphine Sulfate 2 mg Q30M PRN IV 04/11/25 14:45 Azithromycin 250 ml @ 125 mls/hr DAILY IV 04/12/25 10:00 04/15/25 09:50 125 MLS/HR Ceftriaxone Sodium 50 ml @ 100 mls/hr DAILY@09 IV 04/12/25 09:00 04/15/25 09:17 100 MLS/HR Ipratropium [place] 0.5 mg Q6HWA NEB 04/11/25 18:00 04/15/25 07:04 0.5 MG Diagnostic Test (Pha) 1 strip ACHS 04/11/25 17:00 04/15/25 06:34 1 STRIP Insulin Human Regular HS SC 04/11/25 22:00 04/14/25 21:08 2 UNITS Insulin Human Regular AC SC 04/11/25 17:00 04/15/25 06:37 2 UNITS Dextrose 50 ml UD PRN IV 04/11/25 15:30 Dobutamine HCl/ Dextrose 250 ml @ 24 mls/hr [id number] IV 04/11/25 18:00 Cancel Atorvastatin Calcium 80 mg HS PO 04/11/25 22:00 04/14/25 21:05 80 MG Aspirin 81 mg DAILY PO 04/12/25 10:00 04/15/25 09:50 81 MG Clopidogrel Bisulfate 75 mg DAILY PO 04/12/25 10:00 04/15/25 09:50 75 MG Pantoprazole Sodium 40 mg DAILY IV 04/13/25 10:00 04/15/25 09:50 40 MG Furosemide 20 mg DAILY IV 04/13/25 10:00 04/15/25 09:50 20 MG Acetaminophen/ Hydrocodone Bitart 1 tab Q6HPRN PRN PO 04/13/25 19:15 04/14/25 21:14 1 TAB Hydromorphone HCl 0.5 mg Q4HPRN PRN IV 04/13/25 20:15 04/15/25 00:27 0.5 MG Examination: GENERAL:Abnormal (Pale, lethargic), LUNGS:Abnormal (Bilateral crackles), CVS:Normal (Sinus tachycardia 110s bpm), SKIN:Abnormal (Right groin area hematoma) laboratory and microbiology Laboratory Tests 04/15/25 06:27 04/15/25 03:10 Test 04/15/25 03:10 Range/Units Serum Glucose 124 H 74-106 mg/dL Problem List/Assessment/Plan Problem List/Assessment/Plan Acute myocardial infarction 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 Perez) Patient with multivessel coronary artery disease underwent a successful PTCA as well as successful STEERER of the right iliac artery on 04/11/2025 (see operative report). Continue DAPT, lipid lowering agent, and eventually initiate GDMT for HFrEF with stable BP and renal function. Continue tight glycemic control. Monitor ECG changes closely and notify. Monitor H&H closely. Agree with nephrology consultation given KINJAL. Thank you for allowing us to care for this patient. Please call with any questions or concerns. Critical care time: 30 min. This medical document was created using an electronic medical record system with voice recognition software and computerized dictation system. Although this document has been carefully reviewed, there might still be some phonetic and typographical errors. Occasional wrong-word or ``sound-alike substitutions may have occurred due to the inherent limitations of voice recognition software. These areas are purely typographical due to imperfections of the software programs and do not reflect any compromise in the patient's medical care. Please read the chart carefully and recognize, using context, where these substitutions have occurred. Plan discussed with: Patient, Daughter, Other Dietary Evaluation Review Comments: 1) Advance CCHO 60gm + cardiac diet as medically feasible 2) Refer Corporate Training Manager for diabetes education 3) Monitor NPO status, lab values, weight trend, and I/O Expected Outcomes/Goals: To meet >75% estimated needs Lab values to improve Fu 2-3 days Date of Service: Apr 15, 2025 Billing Provider: PAMELA NICOLE Cardiology Common Codes: [id number] CARE 30-74 MIN PAMELA NCIOLE Apr 15, 2025 11:23
--- NOTE | 2025-04-15 12:34 | MEDREC ---
[facility] Intervention Section I [facility] Intervention: Review courses of therapy (PLEASE CONSIDER D/C ANTIBIOTIC IN ABSENCE OF BACTERIAL INFECTION ) SHARON PERLA PHARMACIST Apr 15, 2025 12:34
--- NOTE | 2025-04-15 16:28 | DVHINCON2 ---
Date of service: Apr 15, 2025 Reason for Consultation Acute kidney injury History of Present Illness 79-year-old female past medical history of diabetes, hypertension who presents to the hospital complaining of weakness chest pain. Patient was diagnosed with NSTEMI taken to the [facility] status post two stents. Review of reports show 500 cc of contrast during procedure. This was transferred to the ICU subsequently for acute monitoring and management. Patient noted to have hypotensive episodes and tachycardia. Patient's echocardiogram shows congestive heart failure with ejection fraction of 40%. Nephrology is consulted as the GFR was 50% on admission and declined to 20% Patient is currently in the ICU not intubated alert and oriented able to answer questions Allergies: Coded Allergies: NO KNOWN ALLERGIES (Unverified , 04/11/25) Home Meds Reported Medications Isosorbide Mononitrate (Isosorbide Mononitrate Er) 30 Mg Tab, 1 TAB PO DAILY 04/11/25 Amlodipine Besylate (Amlodipine Besylate) 2.5 Mg Tab, 1 TAB PO BID 04/11/25 Omeprazole (Omeprazole Dr) 20 Mg Cap, 1 CAP PO DAILY 04/11/25 Metformin Hydrochloride (Metformin Hcl Er) 500 Mg Tab, 1 TAB PO DAILY 04/11/25 Glipizide (Glipizide) 10 Mg Tab, 1 TAB PO DAILY 04/11/25 Lisinopril (Lisinopril) 40 Mg Tab, 1 TAB PO DAILY 04/11/25 Atorvastatin Calcium (ATORVASTATIN CALCIUM) 40 Mg Tab, 1 TAB PO HS 04/11/25 Metoprolol Tartrate (LOPRESSOR TABLET) 50 Mg Tb, 1 TAB PO BID 04/11/25 Family History: Asthma G8 MOTHER Review of Systems weakness H&P Exam Vital Signs/I&O Vital Sign Date Time Temp Pulse Resp B/P (MAP) Pulse Ox O2 Delivery O2 Flow Rate FiO2 04/15/25 14:00 108 04/15/25 14:00 12 108/59 (75) 94 04/15/25 14:00 Nasal Cannula* 4 36 04/15/25 12:00 98.6 98.6 Intake and Output 04/14/25 04/15/25 19:00 07:00 Intake Total 1380 ml 120 ml Output Total 250 ml 150 ml Balance 1130 ml -30 ml Intake Oral 780 ml 120 ml IV Total 300 ml Blood Product 300 ml Output Urine Total 250 ml 150 ml Physical Exam Elderly female Nonacute distress Abdomen is soft Trace rales at bases Tachycardia Abdalla catheter has clear yellow urine trace edema Labs/Diagnostic Data Labs/Diagnostic Data Laboratory Tests Test 04/15/25 11:30 04/15/25 06:33 04/15/25 06:27 04/15/25 03:10 Range/Units POC Glucose 230 H 155 H 70-106 mg/dl White Blood Count 17.7 H 4.4-10.8 10^3/uL Red Blood Count 3.15 L 4.0-5.20 10^6/uL Hemoglobin 9.1 L 12.2-16.2 g/dL Hematocrit 27.7 L 36.0-46.0 % Mean Corpuscular Volume 87.7 80.0-100.0 fL Mean Corpuscular Hemoglobin 28.8 28.0-32.0 pg Mean Corpuscular Hemoglobin Concent 32.9 32.0-36.0 g/dL Red Cell Distribution Width 14.3 11.8-14.3 % Platelet Count 206 140-450 10^3/uL Mean Platelet Volume 9.1 6.9-10.8 fL Neutrophils (%) (Auto) 78.5 37.0-80.0 % Lymphocytes (%) (Auto) 8.3 L 10.0-50.0 % Monocytes (%) (Auto) 10.8 0.0-12.0 % Eosinophils (%) (Auto) 1.9 0.0-7.0 % Basophils (%) (Auto) 0.5 0.0-2.0 % Neutrophils # (Auto) 13.9 H 1.6-8.6 10 ^3/uL Lymphocytes # (Auto) 1.5 0.4-5.4 10 ^3/uL Monocytes # (Auto) 1.9 H 0-1.3 10 ^3/uL Eosinophils # (Auto) 0.3 0-0.8 10 ^3/uL Basophils # (Auto) 0.1 0-0.2 10 ^3/uL Nucleated Red Blood Cells 0.3 % B-Type Natriuretic Peptide 1406.41 0-100 pg/mL Sodium Level 132 L 136-145 mmol/L Potassium Level 4.5 3.5-5.1 mmol/L Chloride Level 98 98-107 mmol/L Carbon Dioxide Level 22 20-31 mmol/L Anion Gap 12 5-15 Blood Urea Nitrogen 17 9-23 mg/dL Creatinine 2.38 #H 0.550-1.02 mg/dL Glomerular Filtration Rate Calc 20 >90 mL/min BUN/Creatinine Ratio 7.1 L 10.0-20.0 Serum Glucose 124 H 74-106 mg/dL Calcium Level 8.0 L 8.7-10.4 mg/dL Total Bilirubin 1.3 H 0.2-1.0 mg/dL Aspartate Amino Transferase (AST) 62 H 13-40 U/L Alanine Aminotransferase (ALT) 20 7-40 U/L Alkaline Phosphatase 84 46-116 U/L Total Protein 6.2 5.7-8.2 g/dL Albumin 4.0 3.2-4.8 g/dL Test 04/14/25 22:00 04/14/25 21:07 04/14/25 16:51 04/14/25 15:00 Range/Units Hemoglobin 8.5 L 8.7 #L 12.2-16.2 g/dL Hematocrit 26.0 L 26.2 #L 36.0-46.0 % POC Glucose 151 H 195 H 70-106 mg/dl Creatine Kinase 822 H 34-145 U/L B-Type Natriuretic Peptide 1628.04 0-100 pg/mL Test 04/14/25 11:55 04/14/25 06:33 04/14/25 03:01 04/13/25 23:23 Range/Units POC Glucose 205 H 188 H 171 H 70-106 mg/dl White Blood Count 18.6 H 4.4-10.8 10^3/uL Red Blood Count 2.56 L 4.0-5.20 10^6/uL Hemoglobin 7.4 L 12.2-16.2 g/dL Hematocrit 22.4 #L 36.0-46.0 % Mean Corpuscular Volume 87.5 80.0-100.0 fL Mean Corpuscular Hemoglobin 28.7 28.0-32.0 pg Mean Corpuscular Hemoglobin Concent 32.8 32.0-36.0 g/dL Red Cell Distribution Width 13.8 11.8-14.3 % Platelet Count 193 140-450 10^3/uL Mean Platelet Volume 8.9 6.9-10.8 fL Neutrophils (%) (Auto) 84.4 H 37.0-80.0 % Lymphocytes (%) (Auto) 7.0 L 10.0-50.0 % Monocytes (%) (Auto) 7.4 0.0-12.0 % Eosinophils (%) (Auto) 0.5 0.0-7.0 % Basophils (%) (Auto) 0.7 0.0-2.0 % Neutrophils # (Auto) 15.7 H 1.6-8.6 10 ^3/uL Lymphocytes # (Auto) 1.3 0.4-5.4 10 ^3/uL Monocytes # (Auto) 1.4 H 0-1.3 10 ^3/uL Eosinophils # (Auto) 0.1 0-0.8 10 ^3/uL Basophils # (Auto) 0.1 0-0.2 10 ^3/uL Nucleated Red Blood Cells 0.0 % Sodium Level 134 L 136-145 mmol/L Potassium Level 4.7 3.5-5.1 mmol/L Chloride Level 98 98-107 mmol/L Carbon Dioxide Level 24 20-31 mmol/L Anion Gap 12 5-15 Blood Urea Nitrogen 19 9-23 mg/dL Creatinine 1.73 #H 0.550-1.02 mg/dL Glomerular Filtration Rate Calc 29 >90 mL/min BUN/Creatinine Ratio 11.0 10.0-20.0 Serum Glucose 163 H 74-106 mg/dL Calcium Level 8.3 L 8.7-10.4 mg/dL Total Bilirubin 1.1 H 0.2-1.0 mg/dL Aspartate Amino Transferase (AST) 56 H 13-40 U/L Alanine Aminotransferase (ALT) 20 7-40 U/L Alkaline Phosphatase 58 46-116 U/L Total Protein 5.9 5.7-8.2 g/dL Albumin 3.9 3.2-4.8 g/dL Test 04/13/25 18:21 04/13/25 11:59 04/13/25 07:43 04/13/25 05:52 Range/Units POC Glucose 185 H 183 H 173 H 165 H 70-106 mg/dl Test 04/13/25 03:06 04/12/25 21:19 04/12/25 18:04 04/12/25 16:45 Range/Units White Blood Count 17.1 H 4.4-10.8 10^3/uL Red Blood Count 2.96 L 4.0-5.20 10^6/uL Hemoglobin 8.5 L 8.5 L 12.2-16.2 g/dL Hematocrit 25.2 L 25.5 L 36.0-46.0 % Mean Corpuscular Volume 85.1 # 80.0-100.0 fL Mean Corpuscular Hemoglobin 28.7 28.0-32.0 pg Mean Corpuscular Hemoglobin Concent 33.7 32.0-36.0 g/dL Red Cell Distribution Width 13.9 11.8-14.3 % Platelet Count 193 140-450 10^3/uL Mean Platelet Volume 9.0 6.9-10.8 fL Neutrophils (%) (Auto) 77.6 37.0-80.0 % Lymphocytes (%) (Auto) 12.1 10.0-50.0 % Monocytes (%) (Auto) 9.1 0.0-12.0 % Eosinophils (%) (Auto) 0.8 0.0-7.0 % Basophils (%) (Auto) 0.4 0.0-2.0 % Neutrophils # (Auto) 13.3 H 1.6-8.6 10 ^3/uL Lymphocytes # (Auto) 2.1 0.4-5.4 10 ^3/uL Monocytes # (Auto) 1.6 H 0-1.3 10 ^3/uL Eosinophils # (Auto) 0.1 0-0.8 10 ^3/uL Basophils # (Auto) 0.1 0-0.2 10 ^3/uL Nucleated Red Blood Cells 0.1 % Prothrombin Time 10.7 9.3-11.8 sec Prothrombin Time INR 1.01 0.9-1.15 Activated Partial Thromboplast Time 24.9 24.5-34.5 SEC Sodium Level 136 136-145 mmol/L Potassium Level 4.9 3.5-5.1 mmol/L Chloride Level 99 98-107 mmol/L Carbon Dioxide Level 29 20-31 mmol/L Anion Gap 8 5-15 Blood Urea Nitrogen 17 9-23 mg/dL Creatinine 1.28 H 0.550-1.02 mg/dL Glomerular Filtration Rate Calc 42 >90 mL/min BUN/Creatinine Ratio 13.3 10.0-20.0 Serum Glucose 141 H 74-106 mg/dL Calcium Level 8.3 L 8.7-10.4 mg/dL Total Bilirubin 1.0 0.2-1.0 mg/dL Aspartate Amino Transferase (AST) 79 H 13-40 U/L Alanine Aminotransferase (ALT) 19 7-40 U/L Alkaline Phosphatase 49 46-116 U/L Total Protein 5.6 L 5.7-8.2 g/dL Albumin 3.7 3.2-4.8 g/dL POC Glucose 218 H 143 H 70-106 mg/dl Test 04/12/25 11:27 04/12/25 11:02 04/12/25 06:14 04/12/25 02:10 Range/Units POC Glucose 193 H 285 H 70-106 mg/dl Hemoglobin 8.8 L 9.3 L 12.2-16.2 g/dL Hematocrit 26.8 L 29.0 L 36.0-46.0 % White Blood Count 17.2 H 4.4-10.8 10^3/uL Red Blood Count 3.26 L 4.0-5.20 10^6/uL Mean Corpuscular Volume 88.8 80.0-100.0 fL Mean Corpuscular Hemoglobin 28.6 28.0-32.0 pg Mean Corpuscular Hemoglobin Concent 32.2 32.0-36.0 g/dL Red Cell Distribution Width 14.2 11.8-14.3 % Platelet Count 175 140-450 10^3/uL Mean Platelet Volume 8.8 6.9-10.8 fL Neutrophils (%) (Auto) 85.6 H 37.0-80.0 % Lymphocytes (%) (Auto) 6.0 L 10.0-50.0 % Monocytes (%) (Auto) 8.0 0.0-12.0 % Eosinophils (%) (Auto) 0.0 0.0-7.0 % Basophils (%) (Auto) 0.4 0.0-2.0 % Neutrophils # (Auto) 14.7 H 1.6-8.6 10 ^3/uL Lymphocytes # (Auto) 1.0 0.4-5.4 10 ^3/uL Monocytes # (Auto) 1.4 H 0-1.3 10 ^3/uL Eosinophils # (Auto) 0 0-0.8 10 ^3/uL Basophils # (Auto) 0.1 0-0.2 10 ^3/uL Nucleated Red Blood Cells 0.0 % Sodium Level 134 L 136-145 mmol/L Potassium Level 4.7 3.5-5.1 mmol/L Chloride Level 99 98-107 mmol/L Carbon Dioxide Level 23 20-31 mmol/L Anion Gap 12 5-15 Blood Urea Nitrogen 13 9-23 mg/dL Creatinine 1.20 H 0.550-1.02 mg/dL Glomerular Filtration Rate Calc 45 >90 mL/min BUN/Creatinine Ratio 10.8 10.0-20.0 Serum Glucose 340 H 74-106 mg/dL Calcium Level 8.4 L 8.7-10.4 mg/dL Magnesium Level 1.8 1.6-2.6 mg/dL Total Bilirubin 0.5 0.2-1.0 mg/dL Aspartate Amino Transferase (AST) 126 H 13-40 U/L Alanine Aminotransferase (ALT) 20 7-40 U/L Alkaline Phosphatase 46 46-116 U/L B-Type Natriuretic Peptide 854.83 0-100 pg/mL Total Protein 5.8 5.7-8.2 g/dL Albumin 3.7 3.2-4.8 g/dL Test 04/11/25 23:30 04/11/25 20:33 04/11/25 19:41 04/11/25 15:14 Range/Units Hemoglobin 10.2 L 9.4 #L 12.2-16.2 g/dL Hematocrit 31.4 #L 28.4 #L 36.0-46.0 % POC Glucose 323 H 70-106 mg/dl White Blood Count 16.3 H 4.4-10.8 10^3/uL Red Blood Count 3.28 L 4.0-5.20 10^6/uL Mean Corpuscular Volume 86.5 80.0-100.0 fL Mean Corpuscular Hemoglobin 28.6 28.0-32.0 pg Mean Corpuscular Hemoglobin Concent 33.1 32.0-36.0 g/dL Red Cell Distribution Width 13.9 11.8-14.3 % Platelet Count 199 140-450 10^3/uL Mean Platelet Volume 8.7 6.9-10.8 fL Neutrophils (%) (Auto) 88.8 H 37.0-80.0 % Lymphocytes (%) (Auto) 4.2 L 10.0-50.0 % Monocytes (%) (Auto) 6.6 0.0-12.0 % Eosinophils (%) (Auto) 0.1 0.0-7.0 % Basophils (%) (Auto) 0.3 0.0-2.0 % Neutrophils # (Auto) 14.5 H 1.6-8.6 10 ^3/uL Lymphocytes # (Auto) 0.7 0.4-5.4 10 ^3/uL Monocytes # (Auto) 1.1 0-1.3 10 ^3/uL Eosinophils # (Auto) 0 0-0.8 10 ^3/uL Basophils # (Auto) 0.1 0-0.2 10 ^3/uL Nucleated Red Blood Cells 0.0 % Sodium Level 133 #L 136-145 mmol/L Potassium Level 4.4 3.5-5.1 mmol/L Chloride Level 100 98-107 mmol/L Carbon Dioxide Level 22 20-31 mmol/L Anion Gap 11 5-15 Blood Urea Nitrogen 14 9-23 mg/dL Creatinine 1.07 H 0.550-1.02 mg/dL Glomerular Filtration Rate Calc 52 >90 mL/min BUN/Creatinine Ratio 13.1 10.0-20.0 Serum Glucose 329 H 74-106 mg/dL Calcium Level 7.7 L 8.7-10.4 mg/dL Total Bilirubin 0.5 0.2-1.0 mg/dL Aspartate Amino Transferase (AST) 118 H 13-40 U/L Alanine Aminotransferase (ALT) 16 7-40 U/L Alkaline Phosphatase 41 L 46-116 U/L Total Protein 5.1 L 5.7-8.2 g/dL Albumin 3.3 3.2-4.8 g/dL Blood Gas Specimen Type Arterial Blood Gas Sample Site Left radial Blood Gas Patient Temperature 37.0 Arterial Blood Date Drawn [id number] Arterial Blood pH 7.307 L 7.350-7.450 Arterial Blood Partial Pressure CO2 46.8 H 32.0-45.0 mmHg Arterial Blood Partial Pressure O2 381.6 *H 83.0-108.0 mmHg Arterial Blood HCO3 22.9 21.0-28.0 mmol/L Arterial Blood Oxygen Saturation 99.7 H 94.0-98.0 % Arterial Blood Base Excess -3.6 L -2.0-3.0 mmol/L Arterial Blood Oxyhemoglobin 98.3 H 94.0-98.0 % Arterial Blood Carboxyhemoglobin 0.6 0.5-1.5 % Arterial Blood Methemoglobin 0.8 0.0-1.5 % Watson Test Yes Blood Gas Total Hemoglobin 13.20 12.0-16.0 g/dL Blood Gas Set Respiration Rate 12.0 Blood Gas Modality Mask - bipap Blood Gas Spontaneous Rate 20 FiO2 % 100.0 Blood Gas EPAP 8 Blood Gas IPAP 16 Blood Gas Critical Value Read Back yes Blood Gas Notified Whom Blood Gas Notified Time [id number] Blood Gas Notified By erp developer dakota Peoples 04/11/25 11:38 04/11/25 11:30 04/11/25 11:16 04/11/25 08:40 Range/Units POC Glucose 309 H 70-106 mg/dl Troponin I High Sensitivity 4909 *H </=34 ng/L Blood Gas Specimen Type Arterial Blood Gas Sample Site Left radial Blood Gas Patient Temperature 37.0 Arterial Blood Date Drawn [id number] Arterial Blood pH 7.426 7.350-7.450 Arterial Blood Partial Pressure CO2 32.9 32.0-45.0 mmHg Arterial Blood Partial Pressure O2 100.4 83.0-108.0 mmHg Arterial Blood HCO3 21.2 21.0-28.0 mmol/L Arterial Blood Oxygen Saturation 97.4 94.0-98.0 % Arterial Blood Base Excess -2.5 L -2.0-3.0 mmol/L Arterial Blood Oxyhemoglobin 96.6 94.0-98.0 % Arterial Blood Carboxyhemoglobin 0.2 L 0.5-1.5 % Arterial Blood Methemoglobin 0.6 0.0-1.5 % Watson Test Yes Blood Gas Total Hemoglobin 12.20 12.0-16.0 g/dL Blood Gas Set Respiration Rate 12.0 Blood Gas Modality Mask - bipap Blood Gas Spontaneous Rate 20 FiO2 % 30.0 Blood Gas EPAP 8 Blood Gas IPAP 16 Urine Color Colorless Yellow Urine Clarity Clear Clear Urine pH 5.0 5.0-9.0 Urine Specific Hawley 1.008 1.001-1.035 Urine Protein Trace H Negative Urine Ketones Negative Negative Urine Blood 1+ H Negative /uL Urine Nitrite Negative Negative Urine Bilirubin Negative Negative Urine Urobilinogen Normal Negative mg/dL Urine Leukocyte Esterase Negative Negative /uL Urine RBC 23 0 - 4 /hpf Urine Microscopic WBC 1 0-5 /HPF Urine Squamous Epithelial Cells Few <5 /hpf Urine Bacteria None seen None Seen /hpf Urine Hyaline Casts Few 0 - 2 /lpf Urine Glucose 1+ H Normal mg/dL Test 04/11/25 08:29 04/11/25 08:13 04/11/25 07:06 Range/Units Troponin I High Sensitivity 566 *H 128 *H </=34 ng/L Blood Gas Specimen Type Arterial Blood Gas Sample Site Right radial Blood Gas Patient Temperature 37.0 Arterial Blood Date Drawn [id number] Arterial Blood pH 7.241 *L 7.350-7.450 Arterial Blood Partial Pressure CO2 57.5 H 32.0-45.0 mmHg Arterial Blood Partial Pressure O2 511.9 *H 83.0-108.0 mmHg Arterial Blood HCO3 24.1 21.0-28.0 mmol/L Arterial Blood Oxygen Saturation 99.9 H 94.0-98.0 % Arterial Blood Base Excess -4.0 L -2.0-3.0 mmol/L Arterial Blood Oxyhemoglobin 98.7 H 94.0-98.0 % Arterial Blood Carboxyhemoglobin 0.5 0.5-1.5 % Arterial Blood Methemoglobin 0.7 0.0-1.5 % Watson Test Yes Blood Gas Total Hemoglobin 13.30 12.0-16.0 g/dL Blood Gas Set Respiration Rate 12.0 Blood Gas Modality Mask - bipap Blood Gas Spontaneous Rate 22 FiO2 % 100.0 Blood Gas EPAP 8 Blood Gas IPAP 16 Blood Gas Critical Value Read Back yes Blood Gas Notified Whom Blood Gas Notified Time [id number] Blood Gas Notified By erp developer dakota White Blood Count 18.1 H 4.4-10.8 10^3/uL Red Blood Count 4.45 4.0-5.20 10^6/uL Hemoglobin 13.0 12.2-16.2 g/dL Hematocrit 39.4 36.0-46.0 % Mean Corpuscular Volume 88.6 80.0-100.0 fL Mean Corpuscular Hemoglobin 29.2 28.0-32.0 pg Mean Corpuscular Hemoglobin Concent 32.9 32.0-36.0 g/dL Red Cell Distribution Width 13.6 11.8-14.3 % Platelet Count 292 140-450 10^3/uL Mean Platelet Volume 8.7 6.9-10.8 fL Neutrophils (%) (Auto) 51.1 37.0-80.0 % Lymphocytes (%) (Auto) 38.4 10.0-50.0 % Monocytes (%) (Auto) 6.3 0.0-12.0 % Eosinophils (%) (Auto) 3.3 0.0-7.0 % Basophils (%) (Auto) 0.9 0.0-2.0 % Neutrophils # (Auto) 9.3 H 1.6-8.6 10 ^3/uL Lymphocytes # (Auto) 6.9 H 0.4-5.4 10 ^3/uL Monocytes # (Auto) 1.1 0-1.3 10 ^3/uL Eosinophils # (Auto) 0.6 0-0.8 10 ^3/uL Basophils # (Auto) 0.2 0-0.2 10 ^3/uL Nucleated Red Blood Cells 0.1 % D-Dimer, Quantitative 1.14 H 0.0-0.49 mg/L FEU Sodium Level 142 136-145 mmol/L Potassium Level 3.2 L 3.5-5.1 mmol/L Chloride Level 105 98-107 mmol/L Carbon Dioxide Level 23 20-31 mmol/L Anion Gap 14 5-15 Blood Urea Nitrogen 11 9-23 mg/dL Creatinine 1.11 H 0.550-1.02 mg/dL Glomerular Filtration Rate Calc 50 >90 mL/min BUN/Creatinine Ratio 9.9 L 10.0-20.0 Serum Glucose 333 H 74-106 mg/dL Hemoglobin A1c 8.1 H <5.7 % A1C Calcium Level 9.1 8.7-10.4 mg/dL Magnesium Level 1.5 L 1.6-2.6 mg/dL Total Bilirubin 0.7 0.2-1.0 mg/dL Aspartate Amino Transferase (AST) 26 13-40 U/L Alanine Aminotransferase (ALT) 13 7-40 U/L Alkaline Phosphatase 60 46-116 U/L B-Type Natriuretic Peptide 323.97 0-100 pg/mL Total Protein 7.2 5.7-8.2 g/dL Albumin 4.8 3.2-4.8 g/dL Triglycerides Level 209 H < 150 mg/dL Cholesterol Level 143 < 200 mg/dL LDL Cholesterol 77 < 100 mg/dL HDL Cholesterol 51 40-59 mg/dL Thyroid Stimulating Hormone (TSH) 2.37 0.55-4.78 uIU/mL Microbiology Date/Time Source Procedure Growth Status 04/11/25 20:52 Nose MRSA Screen - Final Complete Assessment 79-year-old female past medical history of diabetes and hypertension presented to the hospital with chest discomfort was admitted for acute myocardial infarction status post cardiac catheterization and stent placement. Acute kidney injury hemodynamic plus contrast induced nephropathy heavy contrast load. Chronic kidney disease baseline is unknown however at presentation patient's GFR was 50%. Congestive heart failure History of hypertension Uncontrolled diabetes Anemia Rate control optimization to improve hemodynamics currently on digoxin Avoid hypotension Keep mean arterial pressure greater than 65 Clinically patient is congested noted rales on exam and congested chest x-ray, increase Lasix to 40 mg IV daily from 20 Repeat urinalysis Avoid additional contrast studies at this time Hold lisinopril and metformin at this time Continue to monitoring urinary output via Abdalla catheter Avoid nonsteroidal anti-inflammatory drugs anemia panel There is no emergent indication for dialysis at this time however patient will require close monitoring through kidney injury time care time 55mins Plan discussed with: Patient OSCAR GARRETT MD Apr 15, 2025 16:28
--- NOTE | 2025-04-15 17:17 | DVHPN2 ---
Progress Note - Dictate Date Seen: Apr 15, 2025 Medical Necessity Reason Pt with a Central, PICC or Fol: Yes The following are medically ne: Abdalla Catheter vital signs Vital Sign Date Time Temp Pulse Resp B/P (MAP) Pulse Ox O2 Delivery O2 Flow Rate FiO2 04/15/25 14:00 108 04/15/25 14:00 12 108/59 (75) 94 04/15/25 14:00 Nasal Cannula* 4 36 04/15/25 12:00 98.6 98.6 Total Intake and Output 04/14/25 04/14/25 04/15/25 15:00 23:00 07:00 Intake Total 960 ml 420 ml 120 ml Output Total 250 ml 150 ml Balance 960 ml 170 ml -30 ml medications Current Medications Medications Dose Ordered Sig/Tanika Route Start Time Stop Time Status Last Admin Dose Admin Acetaminophen 650 mg Q6HP PRN PO 04/11/25 14:45 Nitroglycerin 0.4 mg Q5MINP PRN SL 04/11/25 14:45 Morphine Sulfate 2 mg Q30M PRN IV 04/11/25 14:45 Azithromycin 250 ml @ 125 mls/hr DAILY IV 04/12/25 10:00 04/15/25 09:50 125 MLS/HR Ceftriaxone Sodium 50 ml @ 100 mls/hr DAILY@09 IV 04/12/25 09:00 04/15/25 09:17 100 MLS/HR Ipratropium Sheldon 0.5 mg Q6HWA NEB 04/11/25 18:00 04/15/25 12:37 0.5 MG Diagnostic Test (Pha) 1 strip ACHS 04/11/25 17:00 04/15/25 11:31 1 STRIP Insulin Human Regular HS SC 04/11/25 22:00 04/14/25 21:08 2 UNITS Insulin Human Regular AC SC 04/11/25 17:00 04/15/25 11:35 6 UNITS Dextrose 50 ml UD PRN IV 04/11/25 15:30 Dobutamine HCl/ Dextrose 250 ml @ 24 mls/hr [id number] IV 04/11/25 18:00 Cancel Atorvastatin Calcium 80 mg HS PO 04/11/25 22:00 04/14/25 21:05 80 MG Aspirin 81 mg DAILY PO 04/12/25 10:00 04/15/25 09:50 81 MG Clopidogrel Bisulfate 75 mg DAILY PO 04/12/25 10:00 04/15/25 09:50 75 MG Pantoprazole Sodium 40 mg DAILY IV 04/13/25 10:00 04/15/25 09:50 40 MG Acetaminophen/ Hydrocodone Bitart 1 tab Q6HPRN PRN PO 04/13/25 19:15 04/14/25 21:14 1 TAB Hydromorphone HCl 0.5 mg Q4HPRN PRN IV 04/13/25 20:15 04/15/25 00:27 0.5 MG Furosemide 40 mg DAILY IV 04/16/25 10:00 laboratory and microbiology Laboratory Tests 04/15/25 06:27 04/15/25 03:10 Test 04/15/25 03:10 Range/Units Serum Glucose 124 H 74-106 mg/dL Assessment/Plan Covering for Dr. Valentino Impression Acute hypoxemic respiratory failure Pulmonary congestion Pneumonia STEMI Patient seen and examined Events Low oxygen requirements On 5 liters nasal cannula No distress S/p PCI Labs and imaging reviewed Management Supplemental oxygen Titrate to maintain sats 90% or above Incentive spirometry Continue antibiotics F/u cultures Bronchodilators Diurese Monitor renal function Monitor electrolytes Supplement as needed F/u cardiology DVT prophylaxis Dietary Evaluation Review Comments: 1) Advance CCHO 60gm + cardiac diet as medically feasible 2) Refer Director Of Guidance for diabetes education 3) Monitor NPO status, lab values, weight trend, and I/O Expected Outcomes/Goals: To meet >75% estimated needs Lab values to improve Fu 2-3 days Plan discussed with: Patient BASIL SMYTH MD Apr 15, 2025 17:17
[2025-04-15] MEDS: FUROSEMIDE 20 MG/2 ML VIAL IV ONE (17:30)
[2025-04-15 19:10] LABS: Urine Protein, UAD TRACE (Negative)
[2025-04-16] VITALS (32 sets, daily range): BP systolic 102–125; BP diastolic 44–62; PULSE 101–144; RESP 11–23; TEMP 98–99.1; O2SAT 92–100
[2025-04-16] MEDS: FUROSEMIDE 20 MG/2 ML VIAL IV SCH (02:00)
[2025-04-16 04:29] LABS: Hematocrit 25.3 % (36.0-46.0); Hemoglobin 8.5 g/dL (12.2-16.2); Mean Corpuscular Hemoglobin 29.1 pg (28.0-32.0); Mean Corpuscular Volume 87.1 fL (80.0-100.0); Nucleated Red Blood Cells % 0.1 %
[2025-04-16 04:31] LABS: Alanine Aminotransferase 20 U/L (7-40); Albumin 3.8 g/dL (3.2-4.8); Alkaline Phosphatase 83 U/L (46-116); Anion Gap 14 (5-15); BUN/Creatinine Ratio 13.3 (10.0-20.0); Bilirubin, Total 0.8 mg/dL (0.2-1.0); Carbon Dioxide 23 mmol/L (20-31); Potassium 4.6 mmol/L (3.5-5.1); Total Protein 5.9 g/dL (5.7-8.2)
[2025-04-16 04:35] LABS: Blood Urea Nitrogen 31 mg/dL (9-23); Calcium 7.7 mg/dL (8.7-10.4); Chloride 94 mmol/L (98-107); Glucose 142 mg/dL (74-106); Sodium 131 mmol/L (136-145)
--- NOTE | 2025-04-16 05:16 | DVH ---
CHEST RADIOGRAPH Indication: CHF Technique: Single frontal view of the chest was obtained Comparison: XY CHEST XRAY 1 VIEW on DOS: 04/14/25, XY CHEST PORTABLE on DOS: 04/13/25, XY CHEST PORTABLE on DOS: 04/12/25 FINDINGS: Lines and Tubes: None Lungs: Bilateral airspace disease. Pleura: No effusion. No pneumothorax. Cardiomediastinal contours: Unremarkable Bones: Age-indeterminate right humeral fracture deformity. IMPRESSION: 1. Diffuse bilateral airspace disease which may represent pulmonary edema. Pneumonia, however, shoul d be excluded clinically.
--- NOTE | 2025-04-16 07:03 | DVHPNRES ---
Progress Note Date Seen: Apr 16, 2025 Resident Creating Document: DHARA WEI RESIDENT Medical Necessity Reason Pt with a Central, PICC or Fol: Yes The following are medically ne: Abdalla Catheter Subjective Review of Systems Patient seen and examined at the bedside. On Wednesday patient underwent peripheral angiogram revealed severe peripheral vascular disease, occlusion of the distal SFA with the collateralization form internal iliac to profunda and distal SFA, moderate calcification of anterior tibial and tibioperoneal trunk. Over the weekend patient had fever of 100 F in the evening on Wednesday and, 99.8 F on Wednesday morning, no fever afterwards. Patient continued to be tachycardic with heart rate in 110-130 with a blood pressure remaining 100s/45-60. Kidney function worsened and low urine output yesterday following which patient was started on Lasix 60 mg b.i.d. CXR showed worsening bilateral congestion right more than the left. Objective vital signs Vital Sign Date Time Temp Pulse Resp B/P (MAP) Pulse Ox O2 Delivery O2 Flow Rate FiO2 04/16/25 06:00 11 96 Nasal Cannula* 3 32 04/16/25 06:00 101 103/53 (70) 04/16/25 04:00 98.6 98.6 Total Intake and Output 04/15/25 04/15/25 04/16/25 15:00 23:00 07:00 Intake Total 125 ml 800 ml 100 ml Output Total 450 ml 600 ml Balance 125 ml 350 ml -500 ml medications Current Medications Medications Dose Ordered Sig/Tanika Route Start Time Stop Time Status Last Admin Dose Admin Acetaminophen 650 mg Q6HP PRN PO 04/11/25 14:45 Nitroglycerin 0.4 mg Q5MINP PRN SL 04/11/25 14:45 Morphine Sulfate 2 mg Q30M PRN IV 04/11/25 14:45 Azithromycin 250 ml @ 125 mls/hr DAILY IV 04/12/25 10:00 04/15/25 09:50 125 MLS/HR Ceftriaxone Sodium 50 ml @ 100 mls/hr DAILY@09 IV 04/12/25 09:00 04/15/25 09:17 100 MLS/HR Ipratropium [place] 0.5 mg Q6HWA NEB 04/11/25 18:00 04/16/25 07:01 0.5 MG Diagnostic Test (Pha) 1 strip ACHS 04/11/25 17:00 04/15/25 21:37 1 STRIP Insulin Human Regular HS SC 04/11/25 22:00 04/14/25 21:08 2 UNITS Insulin Human Regular AC SC 04/11/25 17:00 04/15/25 17:35 2 UNITS Dextrose 50 ml UD PRN IV 04/11/25 15:30 Dobutamine HCl/ Dextrose 250 ml @ 24 mls/hr [id number] IV 04/11/25 18:00 Cancel Atorvastatin Calcium 80 mg HS PO 04/11/25 22:00 04/15/25 21:32 80 MG Aspirin 81 mg DAILY PO 04/12/25 10:00 04/15/25 09:50 81 MG Clopidogrel Bisulfate 75 mg DAILY PO 04/12/25 10:00 04/15/25 09:50 75 MG Pantoprazole Sodium 40 mg DAILY IV 04/13/25 10:00 04/15/25 09:50 40 MG Acetaminophen/ Hydrocodone Bitart 1 tab Q6HPRN PRN PO 04/13/25 19:15 04/15/25 21:32 1 TAB Hydromorphone HCl 0.5 mg Q4HPRN PRN IV 04/13/25 20:15 04/16/25 00:24 0.5 MG Furosemide 60 mg BID IV 04/15/25 23:15 04/16/25 02:00 60 MG Examination Gen - no pallor, no icterus, no cyanosis, no clubbing, no LAD, no edema . Skin - Patients skin is warm and dry. HEENT - normocephalic, atraumatic, moist mucous membranes. Neck - full ROM, no LAD, no JVD Pulmonary - B/L rales in the mid to lower zones, no wheezing, no stridor. cardiovascular - regular S1,S2 heard, no added sounds, no murmurs heard. capillary refill normal <3 secs. GI - soft, nontender abdomen. no hepatospleenomegaly. Bowel sounds normoactive Neurological - Patient is A/O X 3 . Bilateral upper extremity strength 4/5, bilateral lower extremity strength 4/5, no facial droop, normal speech, no tremor, no sensory deficiets. laboratory and microbiology Laboratory Tests 04/16/25 03:11 Test 04/16/25 03:11 Range/Units Serum Glucose 142 H 74-106 mg/dL Microbiology Date/Time Source Procedure Growth Status 04/14/25 15:30 Sputum Gram Stain - Final Resulted 04/14/25 15:30 Sputum Respiratory Culture - Preliminary Resulted 04/14/25 06:10 Voided Urine Urine Culture - Preliminary Resulted 04/14/25 03:21 Blood Blood Culture - Preliminary NO GROWTH AFTER 48 HOURS OF INCUBATION. Resulted 04/11/25 20:52 Nose MRSA Screen - Final Complete Problem List/Assessment/Plan Problem List/Assessment/Plan Respiratory Bilateral pulmonary edema likely from acute decompensated heart failure Possible pneumonia due to gram+/- bacteria Acute on chronic hypercapnic respiratory failure Mixed metabolic acidosis with respiratory acidosis - given patient's low blood pressure, Lasix held - sputum cultures showed no growth - on ceftriaxone and azithromycin - BiPaP Cardiovascular NSTEMI type 1 Severe coronary artery disease s/p PCI with a 3 stents Severe dilated Ischemic cardiomyopathy Acute decompensated heart failure Heart failure with reduced ejection fraction Peripheral artery disease, severe s/p angioplasty Right femoral hematoma s/p left heart catheterization - patient underwent left heart catheterization on 04/11 with placement of 3 stents, shockwave therapy to LAD, - dual antiplatelet therapy - atorvastatin - empagliflozin - blood pressure soft, chest x-ray shows congestion worsened - Lasix 60 mg b.i.d. - monitoring H&H, stable, hematoma decreasing in size Endocrinology Uncontrolled Type 2 diabetes mellitus - HbA1c 8.1% - on insulin sliding scale Nephrology KINJAL on CKD likely due to be VMN - kidney function worsening from contrast - on diuretics with Lasix 60 b.i.d. Abdalla's catheter inserted on 04/11 Goals of care discussed with the patient's and daughter at bedside. Code status: Full code Critical care time spent excluding procedures: 71 minutes Plan discussed with Dr. Valentino Plan discussed with: Patient, Spouse, Daughter, Other (LUIS ARMANDO Plascencia) Dietary Evaluation Review Comments: 1) Advance CCHO 60gm + cardiac diet as medically feasible 2) Refer Counseling [facility] Manager for diabetes education 3) Monitor NPO status, lab values, weight trend, and I/O Expected Outcomes/Goals: To meet >75% estimated needs Lab values to improve Fu 2-3 days Date of Service: Apr 16, 2025 Billing Provider: CONNIE VALENTINO MD Common Visit Codes: [id number]-[id number] CARE 30-74 MIN DHARA WEI RESIDENT Apr 16, 2025 07:03 CONNIE VALENTINO MD Apr 17, 2025 14:49
[2025-04-16] MEDS ORDERED: FUROSEMIDE 20 MG/2 ML VIAL IV SCH (10:00)
--- NOTE | 2025-04-16 15:38 | DVHPN2 ---
Consult Progress Note Date Seen: Apr 16, 2025 Subjective Review of Systems: CVS:Normal, RESPIRATORY:Abnormal, NEURO:Normal Objective vital signs Vital Sign Date Time Temp Pulse Resp B/P (MAP) Pulse Ox O2 Delivery O2 Flow Rate FiO2 04/16/25 15:00 119 112/60 98 Facial BiPAP Mask 40 04/16/25 14:00 20 4 04/16/25 12:00 98.6 98.6 Total Intake and Output 04/15/25 04/15/25 04/16/25 15:00 23:00 07:00 Intake Total 125 ml 800 ml 100 ml Output Total 450 ml 600 ml Balance 125 ml 350 ml -500 ml medications Current Medications Medications Dose Ordered Sig/Tanika Route Start Time Stop Time Status Last Admin Dose Admin Acetaminophen 650 mg Q6HP PRN PO 04/11/25 14:45 Nitroglycerin 0.4 mg Q5MINP PRN SL 04/11/25 14:45 Morphine Sulfate 2 mg Q30M PRN IV 04/11/25 14:45 Azithromycin 250 ml @ 125 mls/hr DAILY IV 04/12/25 10:00 04/16/25 11:04 125 MLS/HR Ceftriaxone Sodium 50 ml @ 100 mls/hr DAILY@09 IV 04/12/25 09:00 04/16/25 10:14 100 MLS/HR Ipratropium [place] 0.5 mg Q6HWA NEB 04/11/25 18:00 04/16/25 12:04 0.5 MG Diagnostic Test (Pha) 1 strip ACHS 04/11/25 17:00 04/16/25 11:30 1 STRIP Insulin Human Regular HS SC 04/11/25 22:00 04/14/25 21:08 2 UNITS Insulin Human Regular AC SC 04/11/25 17:00 04/16/25 12:09 6 UNITS Dextrose 50 ml UD PRN IV 04/11/25 15:30 Dobutamine HCl/ Dextrose 250 ml @ 24 mls/hr [id number] IV 04/11/25 18:00 Cancel Atorvastatin Calcium 80 mg HS PO 04/11/25 22:00 04/15/25 21:32 80 MG Aspirin 81 mg DAILY PO 04/12/25 10:00 04/16/25 10:15 81 MG Clopidogrel Bisulfate 75 mg DAILY PO 04/12/25 10:00 04/16/25 10:16 75 MG Pantoprazole Sodium 40 mg DAILY IV 04/13/25 10:00 04/16/25 10:15 40 MG Acetaminophen/ Hydrocodone Bitart 1 tab Q6HPRN PRN PO 04/13/25 19:15 04/15/25 21:32 1 TAB Hydromorphone HCl 0.5 mg Q4HPRN PRN IV 04/13/25 20:15 04/16/25 00:24 0.5 MG Furosemide 60 mg BID IV 04/15/25 23:15 04/16/25 10:15 60 MG Enteral Nutritional Formula 240 ml BIDWM PO 04/16/25 18:00 Cancel Enteral Nutritional Formula 240 ml BIDWM PO 04/16/25 18:00 Examination: GENERAL:Abnormal (Pale, anxious), LUNGS:Abnormal (Bilateral crackles L>R, now on BiPAP with 40% FiO2), CVS:Normal (Sinus tachycardia 120s bpm), NEURO:Normal laboratory and microbiology Laboratory Tests 04/16/25 03:11 Test 04/16/25 03:11 Range/Units Serum Glucose 142 H 74-106 mg/dL Problem List/Assessment/Plan Problem List/Assessment/Plan Acute myocardial infarction Severe multivessel coronary artery disease status post PTCA Severe peripheral artery disease status post APPLICATION DESIGNER of the RLE Ischemic cardiomyopathy with LVEF of 20% Acute on chronic decompensated HFrEF Acute anemia s/p transfusion Bilateral pneumonia Hypertension Dyslipidemia Type 2 diabetes mellitus, Hgb A1C 8.1% Acute kidney injury likely 2/2 to EDGARDO Obesity Plan/Recommendation (Dr. Perez) Patient with multivessel coronary artery disease underwent a successful PTCA as well as successful APPLICATION DESIGNER of the right iliac artery on 04/11/2025 (see operative report). Continue DAPT, lipid lowering agent, and eventually initiate GDMT for HFrEF with stable BP and renal function. Continue tight glycemic control. Monitor ECG changes closely and notify. Monitor H&H closely. Continue nephrology recommendations. Repeat BNP level and CXR in the a.m. Thank you for allowing us to care for this patient. Please call with any questions or concerns. Critical care time: 30 min. This medical document was created using an electronic medical record system with voice recognition software and computerized dictation system. Although this document has been carefully reviewed, there might still be some phonetic and typographical errors. Occasional wrong-word or ``sound-alike substitutions may have occurred due to the inherent limitations of voice recognition software. These areas are purely typographical due to imperfections of the software programs and do not reflect any compromise in the patient's medical care. Please read the chart carefully and recognize, using context, where these substitutions have occurred. Plan discussed with: Patient, Other Dietary Evaluation Review Comments: 1) Advance CCHO 60gm + cardiac diet as medically feasible 2) Refer Campus Monitor for diabetes education 3) Monitor NPO status, lab values, weight trend, and I/O Expected Outcomes/Goals: To meet >75% estimated needs Lab values to improve Fu 2-3 days Date of Service: Apr 16, 2025 Billing Provider: PAMELA NICOLE Cardiology Common Codes: 11754-[id number] CARE 30-74 MIN PAMELA NICOLE Apr 16, 2025 15:38
[2025-04-16] MEDS: LORazepam 2MG/ML-1ML VIAL ONE (15:45)
[2025-04-16] MEDS: LORazepam 2MG/ML-1ML VIAL IV ONE (15:45)
[2025-04-16 17:08] LABS: Base Excess -0.2 mmol/L (-2.0-3.0)
[2025-04-16] MEDS: Glucerna Carbsteady SHAKE Vanilla 8oz PO SCH (17:48)
[2025-04-16] MEDS ORDERED: Ensure Enlive Strawberry 8oz Bottle PO SCH (18:00)
[2025-04-16] MEDS ORDERED: DEXTROSE (50%) 50ML SYRG IV PRN (19:00)
--- NOTE | 2025-04-16 19:00 | DVHPN2 ---
Progress Note Date Seen: Apr 16, 2025 Medical Necessity Reason Pt with a Central, PICC or Fol: Yes The following are medically ne: Abdalla Catheter Subjective Patient reports: Other Review of Systems: RESPIRATORY:Abnormal (sob) Objective vital signs Vital Sign Date Time Temp Pulse Resp B/P (MAP) Pulse Ox O2 Delivery O2 Flow Rate FiO2 04/16/25 18:17 115 17 100 04/16/25 18:12 Nasal Cannula 4.0 04/16/25 18:12 36 04/16/25 18:00 106/49 (68) 04/16/25 16:00 98.0 98.0 Total Intake and Output 04/15/25 04/15/25 04/16/25 15:00 23:00 07:00 Intake Total 125 ml 800 ml 100 ml Output Total 450 ml 600 ml Balance 125 ml 350 ml -500 ml medications Current Medications Medications Dose Ordered Sig/Tanika Route Start Time Stop Time Status Last Admin Dose Admin Acetaminophen 650 mg Q6HP PRN PO 04/11/25 14:45 Nitroglycerin 0.4 mg Q5MINP PRN SL 04/11/25 14:45 Morphine Sulfate 2 mg Q30M PRN IV 04/11/25 14:45 Azithromycin 250 ml @ 125 mls/hr DAILY IV 04/12/25 10:00 04/16/25 11:04 125 MLS/HR Ceftriaxone Sodium 50 ml @ 100 mls/hr DAILY@09 IV 04/12/25 09:00 04/16/25 10:14 100 MLS/HR Ipratropium [place] 0.5 mg Q6HWA NEB 04/11/25 18:00 04/16/25 18:12 0.5 MG Dobutamine HCl/ Dextrose 250 ml @ 24 mls/hr [id number] IV 04/11/25 18:00 Cancel Atorvastatin Calcium 80 mg HS PO 04/11/25 22:00 04/15/25 21:32 80 MG Aspirin 81 mg DAILY PO 04/12/25 10:00 04/16/25 10:15 81 MG Clopidogrel Bisulfate 75 mg DAILY PO 04/12/25 10:00 04/16/25 10:16 75 MG Pantoprazole Sodium 40 mg DAILY IV 04/13/25 10:00 04/16/25 10:15 40 MG Acetaminophen/ Hydrocodone Bitart 1 tab Q6HPRN PRN PO 04/13/25 19:15 04/15/25 21:32 1 TAB Hydromorphone HCl 0.5 mg Q4HPRN PRN IV 04/13/25 20:15 04/16/25 00:24 0.5 MG Furosemide 60 mg BID IV 04/15/25 23:15 04/16/25 10:15 60 MG Enteral Nutritional Formula 240 ml BIDWM PO 04/16/25 18:00 Cancel Enteral Nutritional Formula 240 ml BIDWM PO 04/16/25 18:00 04/16/25 17:48 240 ML Diagnostic Test (Pha) 1 strip ACHS 04/16/25 22:00 UNV Insulin Human Regular ACHS SC 04/16/25 22:00 UNV Dextrose 50 ml UD PRN IV 04/16/25 19:00 UNV Examination: GENERAL:Abnormal, LUNGS:Abnormal, CVS:Abnormal, MSK:Abnormal, NEURO:Normal laboratory and microbiology Laboratory Tests 04/16/25 03:11 Test 04/16/25 03:11 Range/Units Serum Glucose 142 H 74-106 mg/dL Microbiology Date/Time Source Procedure Growth Status 04/14/25 15:30 Sputum Gram Stain - Final Resulted 04/14/25 15:30 Sputum Respiratory Culture - Preliminary Resulted 04/14/25 06:10 Voided Urine Urine Culture - Final Complete 04/14/25 03:21 Blood Blood Culture - Preliminary NO GROWTH AFTER 48 HOURS OF INCUBATION. Resulted 04/11/25 20:52 Nose MRSA Screen - Final Complete Problem List/Assessment/Plan Problem List/Assessment/Plan Acute kidney injury hemodynamic plus contrast induced nephropathy heavy contrast load. Chronic kidney disease baseline is unknown however at presentation patient's GFR was 50%. Congestive heart failure History of hypertension Uncontrolled diabetes Anemia recs Continue IV lasix Nonoliguric for now We will follow closely Plan discussed with: Patient, Spouse, Daughter Dietary Evaluation Review Comments: 1) Advance CCHO 60gm + cardiac diet as medically feasible 2) Refer Superintendent for diabetes education 3) Monitor NPO status, lab values, weight trend, and I/O Expected Outcomes/Goals: To meet >75% estimated needs Lab values to improve Fu 2-3 days DALE GOMEZ MD Apr 16, 2025 19:00
[2025-04-16] MEDS ORDERED: ADENOSINE 6 MG/2 ML INJ IV ONE (20:30)
[2025-04-16] MEDS: ADENOSINE 6 MG/2 ML INJ IV ONE ×2 (20:56)
[2025-04-16] MEDS: ACCU-CHEK COMFORT CURVE STRIP VI SCH (21:49)
[2025-04-16] MEDS: InsuLIN REG 1unit/0.01ml Soln (100units/ml) SC SCH (22:00)
[2025-04-16] MEDS ORDERED: LORazepam 2MG/ML-1ML VIAL IV PRN (23:59)
[2025-04-17] VITALS (34 sets, daily range): BP systolic 101–124; BP diastolic 50–63; PULSE 79–143; RESP 13–21; TEMP 98.2–98.8; O2SAT 95–100
[2025-04-17 04:30] LABS: Potassium 3.7 mmol/L (3.5-5.1)
[2025-04-17 04:31] LABS: Anion Gap 11 (5-15); Carbon Dioxide 28 mmol/L (20-31)
[2025-04-17 04:37] LABS: BUN/Creatinine Ratio 15.1 (10.0-20.0); Magnesium 2.3 mg/dL (1.6-2.6)
[2025-04-17 04:39] LABS: Hematocrit 24.9 % (36.0-46.0); Hemoglobin 8.6 g/dL (12.2-16.2); Mean Corpuscular Hemoglobin 29.1 pg (28.0-32.0); Mean Corpuscular Volume 84.5 fL (80.0-100.0)
--- NOTE | 2025-04-17 04:42 | DVH ---
CHEST RADIOGRAPH Indication: b/l rales Technique: Single frontal view of the chest was obtained Comparison: XY CHEST PORTABLE on DOS: 04/16/25, XY CHEST XRAY 1 VIEW on DOS: 04/14/25, XY CHEST PORTABLE on DOS: 04/13/25, XY CHEST PORTABLE on DOS: 04/12/25, CT CT ANGIO CHEST CONTRAST on DOS: 04/11/25 FINDINGS: Lines and Tubes: None Lungs: Right lower lobe opacity and possible left lower lobe opacity noted. Extensive pulmonary edema . Pleura: No effusion. No pneumothorax. Cardiomediastinal contours: Mild cardiomegaly Bones: No acute osseous abnormality. IMPRESSION: 1. Right lower lobe opacity and possible left lower lobe opacity noted. Extensive pulmonary edema. 2. Mild cardiomegaly.
[2025-04-17 04:45] LABS: Blood Urea Nitrogen 33 mg/dL (9-23); Calcium 7.9 mg/dL (8.7-10.4); Chloride 94 mmol/L (98-107); Glucose 118 mg/dL (74-106); Sodium 133 mmol/L (136-145)
[2025-04-17 05:16] LABS: Total Cells Counted 100.0 (100)
[2025-04-17] MEDS: LACTULOSE 20Gm/30ML SOLN PO SCH (11:54)
--- NOTE | 2025-04-17 11:58 | DVHPN2 ---
Consult Progress Note Date Seen: Apr 17, 2025 Subjective Review of Systems: CVS:Normal, RESPIRATORY:Normal, MSK:Normal, NEURO:Normal Other Systems: C/o RLE pain. Notified of intermittent narrow complex tachycarrhythmias Objective vital signs Vital Sign Date Time Temp Pulse Resp B/P (MAP) Pulse Ox O2 Delivery O2 Flow Rate FiO2 04/17/25 10:00 16 99 Nasal Cannula* 2 28 04/17/25 10:00 103 124/61 04/17/25 08:00 98.8 98.8 Total Intake and Output 04/16/25 04/16/25 04/17/25 15:00 23:00 07:00 Intake Total 300 ml 300 ml 50 ml Output Total 1150 ml 1780 ml Balance 300 ml -850 ml -1730 ml medications Current Medications Medications Dose Ordered Sig/Tanika Route Start Time Stop Time Status Last Admin Dose Admin Acetaminophen 650 mg Q6HP PRN PO 04/11/25 14:45 Nitroglycerin 0.4 mg Q5MINP PRN SL 04/11/25 14:45 Morphine Sulfate 2 mg Q30M PRN IV 04/11/25 14:45 Ceftriaxone Sodium 50 ml @ 100 mls/hr DAILY@09 IV 04/12/25 09:00 04/17/25 09:08 100 MLS/HR Ipratropium [place] 0.5 mg Q6HWA NEB 04/11/25 18:00 04/17/25 06:08 0.5 MG Dobutamine HCl/ Dextrose 250 ml @ 24 mls/hr [id number] IV 04/11/25 18:00 Cancel Atorvastatin Calcium 80 mg HS PO 04/11/25 22:00 04/16/25 21:45 80 MG Aspirin 81 mg DAILY PO 04/12/25 10:00 04/17/25 09:56 81 MG Clopidogrel Bisulfate 75 mg DAILY PO 04/12/25 10:00 04/17/25 09:58 75 MG Pantoprazole Sodium 40 mg DAILY IV 04/13/25 10:00 04/17/25 09:38 40 MG Acetaminophen/ Hydrocodone Bitart 1 tab Q6HPRN PRN PO 04/13/25 19:15 04/15/25 21:32 1 TAB Hydromorphone HCl 0.5 mg Q4HPRN PRN IV 04/13/25 20:15 04/17/25 10:00 0.5 MG Furosemide 60 mg BID IV 04/15/25 23:15 04/17/25 09:45 60 MG Enteral Nutritional Formula 240 ml BIDWM PO 04/16/25 18:00 Cancel Enteral Nutritional Formula 240 ml BIDWM PO 04/16/25 18:00 04/17/25 08:30 240 ML Diagnostic Test (Pha) 1 strip ACHS 04/16/25 22:00 04/17/25 06:37 1 STRIP Insulin Human Regular ACHS SC 04/16/25 22:00 04/17/25 06:44 2 UNITS Dextrose 50 ml UD PRN IV 04/16/25 19:00 Lactulose 30 ml DAILY PO 04/17/25 10:00 Examination: GENERAL:Abnormal, LUNGS:Abnormal (Bilateral crackles R>L), CVS:Abnormal (Sinus tachycardia with intermittent SVT), NEURO:Normal laboratory and microbiology Laboratory Tests 04/17/25 02:37 Test 04/17/25 02:37 Range/Units Serum Glucose 118 H 74-106 mg/dL Problem List/Assessment/Plan Problem List/Assessment/Plan Acute myocardial infarction Severe multivessel coronary artery disease status post PTCA Severe peripheral artery disease status post SUPERVISOR LABORATORY of the RLE Ischemic cardiomyopathy with LVEF of 20% Acute on chronic decompensated HFrEF Intermittent supraventricular tachycardia Acute anemia s/p transfusion Bilateral pneumonia Hypertension Dyslipidemia Type 2 diabetes mellitus, Hgb A1C 8.1% Acute kidney injury likely 2/2 to EDGARDO Obesity Plan/Recommendation (Dr. Perez) Patient with multivessel coronary artery disease underwent a successful PTCA as well as successful SUPERVISOR LABORATORY of the right iliac artery on 04/11/2025 (see operative report). Continue DAPT, lipid lowering agent, and eventually initiate GDMT for HFrEF with stable BP and renal function. Initiate antiarrhythmic therapy with amiodarone including bolus dose, monitor LFTs. Consider digoxin therapy in the setting of continuation of tachyarrhythmias. Continue tight glycemic control. Monitor ECG changes closely and notify. Monitor H&H closely. Continue nephrology recommendations. Repeat BNP level and CXR in the a.m. Thank you for allowing us to care for this patient. Please call with any questions or concerns. Critical care time: 30 min. This medical document was created using an electronic medical record system with voice recognition software and computerized dictation system. Although this document has been carefully reviewed, there might still be some phonetic and typographical errors. Occasional wrong-word or ``sound-alike substitutions may have occurred due to the inherent limitations of voice recognition software. These areas are purely typographical due to imperfections of the software programs and do not reflect any compromise in the patient's medical care. Please read the chart carefully and recognize, using context, where these substitutions have occurred. Plan discussed with: Patient, Daughter, Other Dietary Evaluation Review Comments: 1) Advance CCHO 60gm + cardiac diet as medically feasible 2) Refer Instructor App[employer] Manufacture for diabetes education 3) Monitor NPO status, lab values, weight trend, and I/O Expected Outcomes/Goals: To meet >75% estimated needs Lab values to improve Fu 2-3 days Date of Service: Apr 17, 2025 Billing Provider: PAMELA NICOLE Cardiology Common Codes: [id number] CARE 30-74 MIN PAMELA NICOLE Apr 17, 2025 11:58
[2025-04-17] MEDS: AMIODARONE BOLUS KIT 100 ML IV ONE (13:24)
--- NOTE | 2025-04-17 13:25 | DVH ---
Bilateral lower extremity venous duplex Clinical History: right calf pain Comparison: US RT LOW EXT ART DUPLEX on DOS: 04/14/25, CL ANGIO EXTREMITY BILAT [place] on DOS: 04/13/25 Technique: Duplex Doppler evaluation of the deep venous systems of both lower extremities from the common femora l veins to the popliteal veins including color Doppler and spectral/pulsed waveform analysis was perf ormed. Findings: RIGHT SIDE: The common femoral vein demonstrates appropriate compressibility and waveform variability. There is compressibility/patency of the great saphenous vein at the proximal thigh. The femoral vein demonstrates appropriate compressibility and waveform variability. The deep femoral vein demonstrates appropriate compressibility and waveform variability. The popliteal vein demonstrates appropriate compressibility and waveform variability. There is normal compressibility at the tibioperoneal trunk. LEFT SIDE: The common femoral vein demonstrates appropriate compressibility and waveform variability. There is compressibility/patency of the great saphenous vein at the proximal thigh. The femoral vein demonstrates appropriate compressibility and waveform variability. The deep femoral vein demonstrates appropriate compressibility and waveform variability. The popliteal vein demonstrates appropriate compressibility and waveform variability. There is normal compressibility at the tibioperoneal trunk. Impression: No right or left femoropopliteal venous thrombosis.
[2025-04-17] MEDS: InsuLIN REG 1unit/0.01ml Soln (100units/ml) ONE (13:26)
--- NOTE | 2025-04-17 18:26 | DVHPNRES ---
Progress Note Date Seen: Apr 17, 2025 Resident Creating Document: DHARA WEI RESIDENT Medical Necessity Reason Pt with a Central, PICC or Fol: Yes The following are medically ne: Abdalla Catheter Subjective Review of Systems Patient seen and examined at the bedside. Yesterday evening patient had a run of tachycardia, on the monitor and strips seen likely to be supraventricular tachycardia which was self-limiting within 5 minutes. Patient continued to have rales bilaterally on lung auscultation and chest x-ray is congested bilaterally. Urine output did improve significantly over the last 24 hours, patient does not appear to be in respiratory distress. Patient was given a dose of lactulose 30 mL since she did not have any bowel movement Objective vital signs Vital Sign Date Time Temp Pulse Resp B/P (MAP) Pulse Ox O2 Delivery O2 Flow Rate FiO2 04/17/25 18:00 125 18 117/56 (76) 96 04/17/25 18:00 Nasal Cannula* 2 28 04/17/25 17:00 98.2 98.2 Total Intake and Output 04/16/25 04/16/25 04/17/25 15:00 23:00 07:00 Intake Total 300 ml 300 ml 50 ml Output Total 1150 ml 1780 ml Balance 300 ml -850 ml -1730 ml medications Current Medications Medications Dose Ordered Sig/Tanika Route Start Time Stop Time Status Last Admin Dose Admin Acetaminophen 650 mg Q6HP PRN PO 04/11/25 14:45 Nitroglycerin 0.4 mg Q5MINP PRN SL 04/11/25 14:45 Morphine Sulfate 2 mg Q30M PRN IV 04/11/25 14:45 Ceftriaxone Sodium 50 ml @ 100 mls/hr DAILY@09 IV 04/12/25 09:00 04/17/25 09:08 100 MLS/HR Ipratropium [place] 0.5 mg Q6HWA NEB 04/11/25 18:00 04/17/25 06:08 0.5 MG Dobutamine HCl/ Dextrose 250 ml @ 24 mls/hr [id number] IV 04/11/25 18:00 Cancel Atorvastatin Calcium 80 mg HS PO 04/11/25 22:00 04/16/25 21:45 80 MG Aspirin 81 mg DAILY PO 04/12/25 10:00 04/17/25 09:56 81 MG Clopidogrel Bisulfate 75 mg DAILY PO 04/12/25 10:00 04/17/25 09:58 75 MG Pantoprazole Sodium 40 mg DAILY IV 04/13/25 10:00 04/17/25 09:38 40 MG Acetaminophen/ Hydrocodone Bitart 1 tab Q6HPRN PRN PO 04/13/25 19:15 04/15/25 21:32 1 TAB Hydromorphone HCl 0.5 mg Q4HPRN PRN IV 04/13/25 20:15 04/17/25 10:00 0.5 MG Furosemide 60 mg BID IV 04/15/25 23:15 04/17/25 09:45 60 MG Enteral Nutritional Formula 240 ml BIDWM PO 04/16/25 18:00 Cancel Enteral Nutritional Formula 240 ml BIDWM PO 04/16/25 18:00 04/17/25 08:30 240 ML Diagnostic Test (Pha) 1 strip ACHS 04/16/25 22:00 04/17/25 17:21 1 STRIP Insulin Human Regular ACHS SC 04/16/25 22:00 04/17/25 17:24 4 UNITS Dextrose 50 ml UD PRN IV 04/16/25 19:00 Amiodarone HCl 200 mg Q12HR PO 04/17/25 22:00 Examination Gen - no pallor, no icterus, no cyanosis, 1+ lower extremity edema . Skin - Patients skin is warm and dry. HEENT - normocephalic, atraumatic, moist mucous membranes. Neck - full ROM, no LAD, no JVD Pulmonary - B/L rales in the mid to lower zones, no wheezing, no stridor. cardiovascular - regular S1,S2 heard, no added sounds, no murmurs heard. capillary refill normal <3 secs. GI - soft, nontender abdomen. no hepatospleenomegaly. Bowel sounds normoactive Neurological - Patient is A/O X 3 . Bilateral upper extremity strength 4/5, bilateral lower extremity strength 4/5, no facial droop, normal speech, no tremor, no sensory deficiets. laboratory and microbiology Laboratory Tests 04/17/25 02:37 Test 04/17/25 02:37 Range/Units Serum Glucose 118 H 74-106 mg/dL Microbiology Date/Time Source Procedure Growth Status 04/14/25 15:30 Sputum Gram Stain - Final Resulted 04/14/25 15:30 Sputum Respiratory Culture - Preliminary Resulted 04/14/25 06:10 Voided Urine Urine Culture - Final Complete 04/14/25 03:21 Blood Blood Culture - Preliminary NO GROWTH AFTER 72 HOURS OF INCUBATION. Resulted 04/11/25 20:52 Nose MRSA Screen - Final Complete Problem List/Assessment/Plan Problem List/Assessment/Plan Respiratory Bilateral pulmonary edema likely from acute decompensated heart failure Possible pneumonia due to gram+/- bacteria Acute on chronic hypercapnic respiratory failure Mixed metabolic acidosis with respiratory acidosis - given patient's low blood pressure, Lasix held - sputum cultures showed no growth - on ceftriaxone Cardiovascular NSTEMI type 1 Severe coronary artery disease s/p PCI with a 3 stents Severe dilated Ischemic cardiomyopathy Acute decompensated heart failure Heart failure with reduced ejection fraction Peripheral artery disease, severe s/p angioplasty Right femoral hematoma s/p left heart catheterization paroxysmal SVT - patient underwent left heart catheterization on 04/11 with placement of 3 stents, shockwave therapy to LAD, - dual antiplatelet therapy - atorvastatin - empagliflozin - blood pressure soft, chest x-ray shows congestion similar to yesterday - Lasix 60 mg b.i.d. - monitoring H&H, stable, hematoma decreasing in size - started on amiodarone 200mg bid Endocrinology Uncontrolled Type 2 diabetes mellitus - HbA1c 8.1% - on insulin sliding scale Nephrology KINJAL on CKD likely due to be VMN - on diuretics with Lasix 60 b.i.d. - monitoring kidney function Abdalla's catheter inserted on 04/11 Goals of care discussed with the patient's and daughter at bedside. Code status: Full code Critical care time spent excluding procedures: 53 minutes Plan discussed with Dr. Naidu Plan discussed with: Spouse, Daughter, Other (LUIS ARMANDO phillips) My Orders My Orders Orders - DHARA WEI RESIDENT Procedure Category Date Status Time Glucose Blood PHA 04/16/25 In Process (Accu-Chek Comfort 22:00 Insulin R (Human) PHA 04/16/25 In Process (Insulin R) 22:00 Dextrose 50% Syringe PHA 04/16/25 In Process 19:00 Chest Xray 1 View XY 04/17/25 Resulted 04:00 2 Gm Sodium Diet DIET 04/17/25 Transmitted Breakfast Bilat Lower Dvt US 04/17/25 Resulted 11:22 Insert Midline ORDERS 04/17/25 Transmitted 14:23 Basic Metabolic Panel LAB 04/18/25 Verified 04:00 Complete Blood Count LAB 04/18/25 Verified 04:00 Chest Xray 1 View XY 04/18/25 Logged 04:00 Dietary Evaluation Review Comments: 1) Advance CCHO 60gm + cardiac diet as medically feasible 2) Refer Sample Case Porter for diabetes education 3) Monitor NPO status, lab values, weight trend, and I/O Expected Outcomes/Goals: To meet >75% estimated needs Lab values to improve Fu 2-3 days Date of Service: Apr 17, 2025 Billing Provider: CONNIE NAIDU MD Common Visit Codes: 66355-[id number] CARE 30-74 MIN DHARA WEI RESIDENT Apr 17, 2025 18:26 CONNIE NAIDU MD Apr 18, 2025 14:50
--- NOTE | 2025-04-17 18:50 | DVHPN2 ---
Progress Note Date Seen: Apr 17, 2025 Medical Necessity Reason Pt with a Central, PICC or Fol: Yes The following are medically ne: Abdalla Catheter Subjective Patient reports: No new complaints, Feels better Review of Systems: HEENT:Normal, CVS:Normal, RESPIRATORY:Normal, GI:Normal, :Normal, MSK:Normal, NEURO:Normal Objective vital signs Vital Sign Date Time Temp Pulse Resp B/P (MAP) Pulse Ox O2 Delivery O2 Flow Rate FiO2 04/17/25 18:00 125 18 117/56 (76) 96 04/17/25 18:00 Nasal Cannula* 2 28 04/17/25 17:00 98.2 98.2 Total Intake and Output 04/16/25 04/16/25 04/17/25 15:00 23:00 07:00 Intake Total 300 ml 300 ml 50 ml Output Total 1150 ml 1780 ml Balance 300 ml -850 ml -1730 ml medications Current Medications Medications Dose Ordered Sig/Tanika Route Start Time Stop Time Status Last Admin Dose Admin Acetaminophen 650 mg Q6HP PRN PO 04/11/25 14:45 Nitroglycerin 0.4 mg Q5MINP PRN SL 04/11/25 14:45 Morphine Sulfate 2 mg Q30M PRN IV 04/11/25 14:45 Ceftriaxone Sodium 50 ml @ 100 mls/hr DAILY@09 IV 04/12/25 09:00 04/17/25 09:08 100 MLS/HR Ipratropium [place] 0.5 mg Q6HWA NEB 04/11/25 18:00 04/17/25 06:08 0.5 MG Dobutamine HCl/ Dextrose 250 ml @ 24 mls/hr [id number] IV 04/11/25 18:00 Cancel Atorvastatin Calcium 80 mg HS PO 04/11/25 22:00 04/16/25 21:45 80 MG Aspirin 81 mg DAILY PO 04/12/25 10:00 04/17/25 09:56 81 MG Clopidogrel Bisulfate 75 mg DAILY PO 04/12/25 10:00 04/17/25 09:58 75 MG Pantoprazole Sodium 40 mg DAILY IV 04/13/25 10:00 04/17/25 09:38 40 MG Acetaminophen/ Hydrocodone Bitart 1 tab Q6HPRN PRN PO 04/13/25 19:15 04/15/25 21:32 1 TAB Hydromorphone HCl 0.5 mg Q4HPRN PRN IV 04/13/25 20:15 04/17/25 10:00 0.5 MG Furosemide 60 mg BID IV 04/15/25 23:15 04/17/25 09:45 60 MG Enteral Nutritional Formula 240 ml BIDWM PO 04/16/25 18:00 Cancel Enteral Nutritional Formula 240 ml BIDWM PO 04/16/25 18:00 04/17/25 08:30 240 ML Diagnostic Test (Pha) 1 strip ACHS 04/16/25 22:00 04/17/25 17:21 1 STRIP Insulin Human Regular ACHS SC 04/16/25 22:00 04/17/25 17:24 4 UNITS Dextrose 50 ml UD PRN IV 04/16/25 19:00 Amiodarone HCl 200 mg Q12HR PO 04/17/25 22:00 Examination: GENERAL:Normal, HEENT:Normal, NECK:Normal, LUNGS:Abnormal, CVS:Normal, ABDOMEN:Normal, MSK:Abnormal, SKIN:Normal, NEURO:Normal, :Normal laboratory and microbiology Laboratory Tests 04/17/25 02:37 Test 04/17/25 02:37 Range/Units Serum Glucose 118 H 74-106 mg/dL Microbiology Date/Time Source Procedure Growth Status 04/14/25 15:30 Sputum Gram Stain - Final Resulted 04/14/25 15:30 Sputum Respiratory Culture - Preliminary Resulted 04/14/25 06:10 Voided Urine Urine Culture - Final Complete 04/14/25 03:21 Blood Blood Culture - Preliminary NO GROWTH AFTER 72 HOURS OF INCUBATION. Resulted 04/11/25 20:52 Nose MRSA Screen - Final Complete Problem List/Assessment/Plan Problem List/Assessment/Plan Acute kidney injury hemodynamic plus contrast induced nephropathy heavy contrast load. Chronic kidney disease baseline is unknown however at presentation patient's GFR was 50%. Congestive heart failure History of hypertension Uncontrolled diabetes Anemia recs Continue IV lasix Nonoliguric for now We will follow closely Plan discussed with: Patient Dietary Evaluation Review Comments: 1) Advance CCHO 60gm + cardiac diet as medically feasible 2) Refer Medical Care Evaluation Specialist for diabetes education 3) Monitor NPO status, lab values, weight trend, and I/O Expected Outcomes/Goals: To meet >75% estimated needs Lab values to improve Fu 2-3 days DALE GOMEZ MD Apr 17, 2025 18:50
[2025-04-17] MEDS: AMIODARONE HCL 200 MG TAB PO SCH (22:20)
[2025-04-18] VITALS (44 sets, daily range): BP systolic 91–118; BP diastolic 44–63; PULSE 96–148; RESP 11–23; TEMP 98.3–98.6; O2SAT 96–100
[2025-04-18 03:31] LABS: Hematocrit 26.6 % (36.0-46.0); Hemoglobin 9.1 g/dL (12.2-16.2); Mean Corpuscular Hemoglobin 28.9 pg (28.0-32.0); Mean Corpuscular Volume 84.4 fL (80.0-100.0); Nucleated Red Blood Cells % 0.1 %
[2025-04-18 03:33] LABS: Sodium 137 mmol/L (136-145)
[2025-04-18 03:34] LABS: Anion Gap 10 (5-15); Calcium 8.1 mg/dL (8.7-10.4); Carbon Dioxide 35 mmol/L (20-31); Chloride 92 mmol/L (98-107); Potassium 3.2 mmol/L (3.5-5.1)
[2025-04-18 03:40] LABS: BUN/Creatinine Ratio 16.6 (10.0-20.0)
[2025-04-18 03:55] LABS: Blood Urea Nitrogen 28 mg/dL (9-23); Glucose 128 mg/dL (74-106)
[2025-04-18] MEDS: POTASSIUM CHL 20MEQ/100ML 100 ML IV SCH (04:27)
--- NOTE | 2025-04-18 04:59 | DVH ---
CHEST RADIOGRAPH Indication: b/l rales Technique: Single frontal view of the chest was obtained Comparison: XY CHEST XRAY 1 VIEW on DOS: 04/17/25, XY CHEST PORTABLE on DOS: 04/16/25, XY CHEST XRAY 1 VIEW on DOS: 04/14/25, XY CHEST PORTABLE on DOS: 04/13/25, XY CHEST PORTABLE on DOS: 04/12/25 FINDINGS: Lines and Tubes: None Lungs: Moderate pulmonary edema. Right lower lobe opacity not excluded. Pleura: No effusion. No pneumothorax. Cardiomediastinal contours: mild cardiomegaly. Bones: No acute osseous abnormality. IMPRESSION: 1. Moderate pulmonary edema. Mild cardiomegaly. 2. Right lower lobe opacity not excluded.
[2025-04-18] MEDS: POTASSIUM CHL 20MEQ/100ML 100 ML IV ONE (10:20)
[2025-04-18] MEDS: FUROSEMIDE 100 MG/10ML VIAL IV SCH (11:36)
[2025-04-18] MEDS: DOXYCYCLINE 100 MG TAB/CAP PO ONE (11:46)
--- NOTE | 2025-04-18 14:10 | DVHPNRES ---
Progress Note Date Seen: Apr 18, 2025 Resident Creating Document: DHARA WEI RESIDENT Medical Necessity Reason Pt with a Central, PICC or Fol: Yes The following are medically ne: Abdalla Catheter Subjective Review of Systems 04/18 Patient seen and examined at the bedside. Patient complains of right lower extremity pain, bilateral lower extremity venous ultrasound was negative for any DVT, on dual antiplatelet therapy. Patient had a few runs of nonsustained SVT with PACs lasting less than a minute. Chest x-ray showed improved congestion. Urine output did improve significantly over the last 24 hours. Objective vital signs Vital Sign Date Time Temp Pulse Resp B/P (MAP) Pulse Ox O2 Delivery O2 Flow Rate FiO2 04/18/25 12:00 98.6 98 12 104/53 (70) 96 98.6 04/18/25 11:10 Nasal Cannula* 2 28 Total Intake and Output 04/17/25 04/17/25 04/18/25 14:59 22:59 06:59 Intake Total 150 ml 500 ml 220 ml Output Total 1850 ml 2050 ml Balance 150 ml -1350 ml -1830 ml medications Current Medications Medications Dose Ordered Sig/Tanika Route Start Time Stop Time Status Last Admin Dose Admin Acetaminophen 650 mg Q6HP PRN PO 04/11/25 14:45 Nitroglycerin 0.4 mg Q5MINP PRN SL 04/11/25 14:45 Morphine Sulfate 2 mg Q30M PRN IV 04/11/25 14:45 Ceftriaxone Sodium 50 ml @ 100 mls/hr DAILY@09 IV 04/12/25 09:00 04/18/25 09:06 100 MLS/HR Ipratropium [place] 0.5 mg Q6HWA NEB 04/11/25 18:00 04/18/25 11:10 0.5 MG Dobutamine HCl/ Dextrose 250 ml @ 24 mls/hr [id number] IV 04/11/25 18:00 Cancel Atorvastatin Calcium 80 mg HS PO 04/11/25 22:00 04/17/25 22:20 80 MG Aspirin 81 mg DAILY PO 04/12/25 10:00 04/18/25 09:06 81 MG Clopidogrel Bisulfate 75 mg DAILY PO 04/12/25 10:00 04/18/25 09:06 75 MG Acetaminophen/ Hydrocodone Bitart 1 tab Q6HPRN PRN PO 04/13/25 19:15 04/18/25 05:39 1 TAB Hydromorphone HCl 0.5 mg Q4HPRN PRN IV 04/13/25 20:15 04/18/25 10:21 0.5 MG Enteral Nutritional Formula 240 ml BIDWM PO 04/16/25 18:00 Cancel Enteral Nutritional Formula 240 ml BIDWM PO 04/16/25 18:00 04/18/25 08:00 240 ML Diagnostic Test (Pha) 1 strip ACHS 04/16/25 22:00 04/18/25 11:36 1 STRIP Insulin Human Regular ACHS SC 04/16/25 22:00 04/18/25 11:41 6 UNITS Dextrose 50 ml UD PRN IV 04/16/25 19:00 Amiodarone HCl 200 mg Q12HR PO 04/17/25 22:00 04/18/25 09:06 200 MG Furosemide 60 mg BID IV 04/18/25 10:00 04/18/25 11:36 60 MG Doxycycline Monohydrate 100 mg Q12HR PO 04/18/25 22:00 Pantoprazole Sodium 40 mg DAILY@0600 PO 04/19/25 06:00 Examination Gen - no pallor, no icterus, no cyanosis, no edema . Skin - Patients skin is warm and dry. HEENT - normocephalic, atraumatic, moist mucous membranes. Neck - full ROM, no LAD, no JVD Pulmonary - B/L rales in the mid to lower zones, no wheezing, no stridor. cardiovascular - regular S1,S2 heard, no added sounds, no murmurs heard. capillary refill normal <3 secs. GI - soft, nontender abdomen. no hepatospleenomegaly. Bowel sounds normoactive Neurological - Patient is A/O X 3 . Bilateral upper extremity strength 4/5, bilateral lower extremity strength 4/5, no facial droop, normal speech, no tremor, no sensory deficiets laboratory and microbiology Laboratory Tests 04/18/25 02:14 Test 04/18/25 02:14 Range/Units Serum Glucose 128 H 74-106 mg/dL Microbiology Date/Time Source Procedure Growth Status 04/14/25 15:30 Sputum Gram Stain - Final Resulted 04/14/25 15:30 Sputum Respiratory Culture - Preliminary Resulted 04/14/25 06:10 Voided Urine Urine Culture - Final Complete 04/14/25 03:21 Blood Blood Culture - Preliminary NO GROWTH AFTER 72 HOURS OF INCUBATION. Resulted 04/11/25 20:52 Nose MRSA Screen - Final Complete Problem List/Assessment/Plan Problem List/Assessment/Plan Respiratory Bilateral pulmonary edema likely from acute decompensated heart failure Possible pneumonia due to gram+/- bacteria Acute on chronic hypercapnic respiratory failure Mixed metabolic acidosis with respiratory acidosis - given patient's low blood pressure, Lasix held - sputum cultures showed no growth - on ceftriaxone an doxycycline Cardiovascular NSTEMI type 1 Severe coronary artery disease s/p PCI with a 3 stents Severe dilated Ischemic cardiomyopathy Acute decompensated heart failure Heart failure with reduced ejection fraction Peripheral artery disease, severe s/p angioplasty Right femoral hematoma s/p left heart catheterization paroxysmal SVT - patient underwent left heart catheterization on 04/11 with placement of 3 stents, shockwave therapy to LAD, - dual antiplatelet therapy - atorvastatin - empagliflozin - blood pressure soft, chest x-ray shows congestion similar to yesterday - Lasix 60 mg b.i.d. - monitoring H&H, stable, hematoma decreasing in size - on amiodarone 200mg bid Endocrinology Uncontrolled Type 2 diabetes mellitus - HbA1c 8.1% - on insulin sliding scale Nephrology KINJAL on CKD likely due to be VMN - on diuretics with Lasix 60 b.i.d. - monitoring kidney function Abdalla's catheter inserted on 04/11 left upper arm midline inserted on 04/17 Goals of care discussed with the patient's and daughter at bedside. Downgraded to telemetry and the patient is stable for transfer to [place]. Code status: Full code Critical care time spent excluding procedures: 47 minutes Plan discussed with Dr. Naidu Plan discussed with: Patient, Spouse, Daughter, Other (LUIS ARMANDO Garcia) My Orders My Orders Orders - DHARA WEI RESIDENT Procedure Category Date Status Time Insert Midline ORDERS 04/17/25 Transmitted 14:23 Chest Xray 1 View XY 04/18/25 Resulted 04:00 Consistent DIET 04/18/25 Transmitted Carb(Ccho)Diabetes Breakfast Doxycycline Tablet PHA 04/18/25 In Process (Vibramycin Tablet) 22:00 Pantoprazole Tablet PHA 04/19/25 In Process (Protonix Tablet) 06:00 Transfer Orders XFER 04/18/25 Transmitted 11:19 Dietary Evaluation Review Comments: 1) Advance CCHO 60gm + cardiac diet as medically feasible 2) Refer Office Machine Servicer for diabetes education 3) Monitor NPO status, lab values, weight trend, and I/O Expected Outcomes/Goals: To meet >75% estimated needs Lab values to improve Fu 2-3 days Date of Service: Apr 18, 2025 Billing Provider: CONNIE NAIDU MD Common Visit Codes: [id number] CARE 30-74 MIN DHARA WEI RESIDENT Apr 18, 2025 14:10 CONNIE NAIDU MD Apr 21, 2025 12:11
--- NOTE | 2025-04-18 14:12 | MEDREC ---
[facility] ASP Intervention Section I [facility] Intervention: Review courses of therapy (Patient received 7 days of atypical coverage, may consider discontinuing doxycycline if/when clinically appropriate.) SHANICE MORENO [facility] RESIDENT Apr 18, 2025 14:12
--- NOTE | 2025-04-18 15:38 | DVHPN2 ---
Progress Note Date Seen: Apr 18, 2025 Medical Necessity Reason Pt with a Central, PICC or Fol: Yes The following are medically ne: Abdalla Catheter Subjective Patient reports: No new complaints, Feels better Review of Systems: Deferred Objective vital signs Vital Sign Date Time Temp Pulse Resp B/P (MAP) Pulse Ox O2 Delivery O2 Flow Rate FiO2 04/18/25 14:00 14 97 Room Air* 0 21 04/18/25 14:00 101 04/18/25 14:00 115/57 (76) 04/18/25 12:00 98.6 98.6 Total Intake and Output 04/17/25 04/17/25 04/18/25 15:00 23:00 07:00 Intake Total 150 ml 500 ml 220 ml Output Total 1850 ml 2050 ml Balance 150 ml -1350 ml -1830 ml medications Current Medications Medications Dose Ordered Sig/Tanika Route Start Time Stop Time Status Last Admin Dose Admin Acetaminophen 650 mg Q6HP PRN PO 04/11/25 14:45 Nitroglycerin 0.4 mg Q5MINP PRN SL 04/11/25 14:45 Morphine Sulfate 2 mg Q30M PRN IV 04/11/25 14:45 Ceftriaxone Sodium 50 ml @ 100 mls/hr DAILY@09 IV 04/12/25 09:00 04/18/25 09:06 100 MLS/HR Ipratropium [place] 0.5 mg Q6HWA NEB 04/11/25 18:00 04/18/25 11:10 0.5 MG Dobutamine HCl/ Dextrose 250 ml @ 24 mls/hr [id number] IV 04/11/25 18:00 Cancel Atorvastatin Calcium 80 mg HS PO 04/11/25 22:00 04/17/25 22:20 80 MG Aspirin 81 mg DAILY PO 04/12/25 10:00 04/18/25 09:06 81 MG Clopidogrel Bisulfate 75 mg DAILY PO 04/12/25 10:00 04/18/25 09:06 75 MG Acetaminophen/ Hydrocodone Bitart 1 tab Q6HPRN PRN PO 04/13/25 19:15 04/18/25 05:39 1 TAB Hydromorphone HCl 0.5 mg Q4HPRN PRN IV 04/13/25 20:15 04/18/25 10:21 0.5 MG Enteral Nutritional Formula 240 ml BIDWM PO 04/16/25 18:00 Cancel Enteral Nutritional Formula 240 ml BIDWM PO 04/16/25 18:00 04/18/25 08:00 240 ML Diagnostic Test (Pha) 1 strip ACHS 04/16/25 22:00 04/18/25 11:36 1 STRIP Insulin Human Regular ACHS SC 04/16/25 22:00 04/18/25 11:41 6 UNITS Dextrose 50 ml UD PRN IV 04/16/25 19:00 Amiodarone HCl 200 mg Q12HR PO 04/17/25 22:00 04/18/25 09:06 200 MG Furosemide 60 mg BID IV 04/18/25 10:00 04/18/25 11:36 60 MG Doxycycline Monohydrate 100 mg Q12HR PO 04/18/25 22:00 Pantoprazole Sodium 40 mg DAILY@0600 PO 04/19/25 06:00 Examination: GENERAL:Normal, HEENT:Normal, NECK:Normal, LUNGS:Normal, CVS:Normal, ABDOMEN:Normal, MSK:Normal, SKIN:Normal, NEURO:Normal, :Normal laboratory and microbiology Laboratory Tests 04/18/25 02:14 Test 04/18/25 02:14 Range/Units Serum Glucose 128 H 74-106 mg/dL Microbiology Date/Time Source Procedure Growth Status 04/14/25 15:30 Sputum Gram Stain - Final Resulted 04/14/25 15:30 Sputum Respiratory Culture - Preliminary Resulted 04/14/25 06:10 Voided Urine Urine Culture - Final Complete 04/14/25 03:21 Blood Blood Culture - Preliminary NO GROWTH AFTER 72 HOURS OF INCUBATION. Resulted 04/11/25 20:52 Nose MRSA Screen - Final Complete Problem List/Assessment/Plan Problem List/Assessment/Plan Acute kidney injury hemodynamic plus contrast induced nephropathy heavy contrast load. Chronic kidney disease baseline is unknown however at presentation patient's GFR was 50%. Congestive heart failure History of hypertension Uncontrolled diabetes Anemia recs Continue IV lasix--reduce dose Nonoliguric for now We will follow closely Plan discussed with: Spouse, Daughter My Orders My Orders Orders - DALE GOMEZ MD Procedure Category Date Status Time Furosemide Injection PHA 04/19/25 Transmitted (Lasix Injection) 10:00 Dietary Evaluation Review Comments: 1) Advance CCHO 60gm + cardiac diet as medically feasible 2) Refer Diamond Powder Technician for diabetes education 3) Monitor NPO status, lab values, weight trend, and I/O Expected Outcomes/Goals: To meet >75% estimated needs Lab values to improve Fu 2-3 days DALE GOMEZ MD Apr 18, 2025 15:38
--- NOTE | 2025-04-18 17:34 | DVHPN2 ---
Consult Progress Note Subjective Other Systems: Patient in normal sinus rhythm at time of assessment Objective vital signs Vital Sign Date Time Temp Pulse Resp B/P (MAP) Pulse Ox O2 Delivery O2 Flow Rate FiO2 04/18/25 17:00 114 15 91/50 (64) 98 04/18/25 16:00 Room Air* 0 21 04/18/25 16:00 98.6 98.6 Total Intake and Output 04/17/25 04/17/25 04/18/25 15:00 23:00 07:00 Intake Total 150 ml 500 ml 220 ml Output Total 1850 ml 2050 ml Balance 150 ml -1350 ml -1830 ml medications Current Medications Medications Dose Ordered Sig/Tanika Route Start Time Stop Time Status Last Admin Dose Admin Acetaminophen 650 mg Q6HP PRN PO 04/11/25 14:45 Nitroglycerin 0.4 mg Q5MINP PRN SL 04/11/25 14:45 Morphine Sulfate 2 mg Q30M PRN IV 04/11/25 14:45 Ceftriaxone Sodium 50 ml @ 100 mls/hr DAILY@09 IV 04/12/25 09:00 04/18/25 09:06 100 MLS/HR Ipratropium [place] 0.5 mg Q6HWA NEB 04/11/25 18:00 04/18/25 11:10 0.5 MG Dobutamine HCl/ Dextrose 250 ml @ 24 mls/hr Q50Q71C IV 04/11/25 18:00 Cancel Atorvastatin Calcium 80 mg HS PO 04/11/25 22:00 04/17/25 22:20 80 MG Aspirin 81 mg DAILY PO 04/12/25 10:00 04/18/25 09:06 81 MG Clopidogrel Bisulfate 75 mg DAILY PO 04/12/25 10:00 04/18/25 09:06 75 MG Acetaminophen/ Hydrocodone Bitart 1 tab Q6HPRN PRN PO 04/13/25 19:15 04/18/25 17:04 1 TAB Hydromorphone HCl 0.5 mg Q4HPRN PRN IV 04/13/25 20:15 04/18/25 10:21 0.5 MG Enteral Nutritional Formula 240 ml BIDWM PO 04/16/25 18:00 Cancel Enteral Nutritional Formula 240 ml BIDWM PO 04/16/25 18:00 04/18/25 08:00 240 ML Diagnostic Test (Pha) 1 strip ACHS 04/16/25 22:00 04/18/25 17:00 1 STRIP Insulin Human Regular ACHS SC 04/16/25 22:00 04/18/25 17:23 4 UNITS Dextrose 50 ml UD PRN IV 04/16/25 19:00 Amiodarone HCl 200 mg Q12HR PO 04/17/25 22:00 04/18/25 09:06 200 MG Doxycycline Monohydrate 100 mg Q12HR PO 04/18/25 22:00 Pantoprazole Sodium 40 mg DAILY@0600 PO 04/19/25 06:00 Furosemide 40 mg DAILY IV 04/19/25 10:00 Examination: GENERAL:Abnormal (Generalized weakness), LUNGS:Normal, CVS:Normal, SKIN:Abnormal (Ecchymosis to right groin area and bilateral arms), NEURO:Normal laboratory and microbiology Laboratory Tests 04/18/25 02:14 Test 04/18/25 02:14 Range/Units Serum Glucose 128 H 74-106 mg/dL Problem List/Assessment/Plan Problem List/Assessment/Plan Acute myocardial infarction Severe multivessel coronary artery disease status post PTCA Severe peripheral artery disease status post [employer] of the RLE Ischemic cardiomyopathy with LVEF of 20% Acute on chronic decompensated HFrEF, NYHA class III Intermittent supraventricular tachycardia Acute anemia s/p transfusion Bilateral pneumonia Hypertension Dyslipidemia Type 2 diabetes mellitus, Hgb A1C 8.1% Acute kidney injury likely 2/2 to EDGARDO Hypokalemia Obesity Plan/Recommendation (Dr. Perez) Patient with multivessel coronary artery disease underwent a successful PTCA as well as successful [employer] of the right iliac artery on 04/11/2025 (see operative report). Continue DAPT, lipid lowering agent, and eventually initiate GDMT for HFrEF with stable BP and renal function. Renal function improving, continue to monitor closely and avoid nephrotoxic agents. Continue antiarrhythmic therapy with amiodarone and monitor LFTs. Consider digoxin therapy in the setting of continuation of tachyarrhythmias. Consider beta-lauren with stable blood pressures. Continue tight glycemic control. Monitor ECG changes closely and notify. Monitor H&H closely. Continue nephrology recommendations. Thank you for allowing us to care for this patient. Please call with any questions or concerns. Critical care time: 30 min. This medical document was created using an electronic medical record system with voice recognition software and computerized dictation system. Although this document has been carefully reviewed, there might still be some phonetic and typographical errors. Occasional wrong-word or ``sound-alike substitutions may have occurred due to the inherent limitations of voice recognition software. These areas are purely typographical due to imperfections of the software programs and do not reflect any compromise in the patient's medical care. Please read the chart carefully and recognize, using context, where these substitutions have occurred. Plan discussed with: Patient, Spouse, Daughter Dietary Evaluation Review Comments: 1) Advance CCHO 60gm + cardiac diet as medically feasible 2) Refer [employer] for diabetes education 3) Monitor NPO status, lab values, weight trend, and I/O Expected Outcomes/Goals: To meet >75% estimated needs Lab values to improve Fu 2-3 days Date of Service: Apr 18, 2025 Billing Provider: PAULA LACEY Common Visit Codes: 24244-CIOHVUIA CARE 30-74 MIN PAULA LACEY Apr 18, 2025 17:34
[2025-04-18] MEDS: DOXYCYCLINE 100 MG TAB/CAP PO SCH (22:15)
[2025-04-19] VITALS: PULSE 101; RESP 12
[2025-04-19] MEDS ORDERED: PANTOPRAZOLE 40 MG TAB PO SCH (06:00)
--- NOTE | 2025-04-19 06:39 | DVHDSRES ---
Discharge Summary Date of Admission Resident Creating Document: DHARA WEI RESIDENT Apr 11, 2025 at 14:36 Date of Discharge: Apr 18, 2025 Admitting Diagnosis Elevated troponin Possible NSTEMI Possible PE Pleural effusion Possible pneumonia Hypokalemia Leukocytosis Hypertension Diabetes Labs/Diagnostic Data: Laboratory Results Test 04/18/25 22:01 04/18/25 02:14 04/17/25 02:37 04/16/25 16:51 POC Glucose 256 mg/dl (70-106) White Blood Count 12.5 10^3/uL (4.4-10.8) Red Blood Count 3.15 10^6/uL (4.0-5.20) Hemoglobin 9.1 g/dL (12.2-16.2) Hematocrit 26.6 % (36.0-46.0) Mean Corpuscular Volume 84.4 fL (80.0-100.0) Mean Corpuscular Hemoglobin 28.9 pg (28.0-32.0) Mean Corpuscular Hemoglobin Concent 34.2 g/dL (32.0-36.0) Red Cell Distribution Width 14.1 % (11.8-14.3) Platelet Count 270 10^3/uL (140-450) Mean Platelet Volume 9.0 fL (6.9-10.8) Neutrophils (%) (Auto) 73.1 % (37.0-80.0) Lymphocytes (%) (Auto) 7.3 % (10.0-50.0) Monocytes (%) (Auto) 15.4 % (0.0-12.0) Eosinophils (%) (Auto) 3.8 % (0.0-7.0) Basophils (%) (Auto) 0.4 % (0.0-2.0) Neutrophils # (Auto) 9.1 10 ^3/uL (1.6-8.6) Lymphocytes # (Auto) 0.9 10 ^3/uL (0.4-5.4) Monocytes # (Auto) 1.9 10 ^3/uL (0-1.3) Eosinophils # (Auto) 0.5 10 ^3/uL (0-0.8) Basophils # (Auto) 0 10 ^3/uL (0-0.2) Nucleated Red Blood Cells 0.1 % Sodium Level 137 mmol/L (136-145) Potassium Level 3.2 mmol/L (3.5-5.1) Chloride Level 92 mmol/L (98-107) Carbon Dioxide Level 35 mmol/L (20-31) Anion Gap 10 (5-15) Blood Urea Nitrogen 28 mg/dL (9-23) Creatinine 1.69 mg/dL (0.550-1.02) Glomerular Filtration Rate Calc 30 mL/min (>90) BUN/Creatinine Ratio 16.6 (10.0-20.0) Serum Glucose 128 mg/dL (74-106) Calcium Level 8.1 mg/dL (8.7-10.4) Magnesium Level 2.1 mg/dL (1.6-2.6) Differential Total Cells Counted 100.0 (100) Neutrophils % (Manual) 78 (37.0-80.0) Band Neutrophils % (Manual) 1 Lymphocytes % (Manual) 10 (10.0-50.0) Monocytes % (Manual) 7 (0-12) Eosinophils % (Manual) 4 (0-7) Basophils % (Manual) 0 (0.0-2.0) Metamyelocytes % (manual) 0 Myelocytes % (Manual) 0 Promyelocytes % (Manual) 0 Blast Cells % (Manual) 0 Reactive Lymphocytes 0 Platelet Estimate Adequate B-Type Natriuretic Peptide 2251.98 pg/mL (0-100) Blood Gas Specimen Type Arterial Blood Gas Sample Site Right radial Blood Gas Patient Temperature 37.0 Arterial Blood Date Drawn [id number] Arterial Blood pH 7.374 (7.350-7.450) Arterial Blood Partial Pressure CO2 44.1 mmHg (32.0-45.0) Arterial Blood Partial Pressure O2 90.8 mmHg (83.0-108.0) Arterial Blood HCO3 25.2 mmol/L (21.0-28.0) Arterial Blood Oxygen Saturation 96.3 % (94.0-98.0) Arterial Blood Base Excess -0.2 mmol/L (-2.0-3.0) Arterial Blood Oxyhemoglobin 95.6 % (94.0-98.0) Arterial Blood Carboxyhemoglobin 0.7 % (0.5-1.5) Arterial Blood Methemoglobin 0.0 % (0.0-1.5) Watson Test Yes Blood Gas Total Hemoglobin 8.80 g/dL (12.0-16.0) Blood Gas Modality Mask - bipap FiO2 % 40.0 Test 04/16/25 03:11 04/15/25 18:00 04/14/25 15:00 04/13/25 03:06 Total Bilirubin 0.8 mg/dL (0.2-1.0) Aspartate Amino Transferase (AST) 56 U/L (13-40) Alanine Aminotransferase (ALT) 20 U/L (7-40) Alkaline Phosphatase 83 U/L (46-116) Total Protein 5.9 g/dL (5.7-8.2) Albumin 3.8 g/dL (3.2-4.8) Urine Color Light-yellow (Yellow) Urine Clarity Turbid (Clear) Urine pH 5.0 (5.0-9.0) Urine Specific [place] 1.013 (1.001-1.035) Urine Protein Trace (Negative) Urine Ketones Negative (Negative) Urine Blood 2+ /uL (Negative) Urine Nitrite Negative (Negative) Urine Bilirubin Negative (Negative) Urine Urobilinogen Normal mg/dL (Negative) Urine Leukocyte Esterase Negative /uL (Negative) Urine Glucose 4+ mg/dL (Normal) Creatine Kinase 822 U/L (34-145) Prothrombin Time 10.7 sec (9.3-11.8) Prothrombin Time INR 1.01 (0.9-1.15) Activated Partial Thromboplast Time 24.9 SEC (24.5-34.5) Test 04/11/25 15:14 04/11/25 11:30 04/11/25 08:40 04/11/25 07:06 Blood Gas Set Respiration Rate 12.0 Blood Gas Spontaneous Rate 20 Blood Gas EPAP 8 Blood Gas IPAP 16 Blood Gas Critical Value Read Back yes Blood Gas Notified Whom Blood Gas Notified Time [id number] Blood Gas Notified By sharepoint net developer dakota Troponin I High Sensitivity 4909 ng/L (</=34) Urine RBC 23 /hpf (0 - 4) Urine Microscopic WBC 1 /HPF (0-5) Urine Squamous Epithelial Cells Few /hpf (<5) Urine Bacteria None seen /hpf (None Seen) Urine Hyaline Casts Few /lpf (0 - 2) D-Dimer, Quantitative 1.14 mg/L FEU (0.0-0.49) Hemoglobin A1c 8.1 % A1C (<5.7) Triglycerides Level 209 mg/dL (< 150) Cholesterol Level 143 mg/dL (< 200) LDL Cholesterol 77 mg/dL (< 100) HDL Cholesterol 51 mg/dL (40-59) Thyroid Stimulating Hormone (TSH) 2.37 uIU/mL (0.55-4.78) Other Laboratory Tests 04/18/25 02:14 Brief Hx & Hospital Course: Patient is a 79-year-old female with a medical history of hypertension, hyperlipidemia, type 2 diabetes mellitus presented to the ED with a chief complaint of shortness of breath and chest pain. She reported of chest pain left-sided, tightness, constant worsened on excessive relation fluid leak she was brought to the ER with initial ECG showing sinus tachycardia and troponins 128. Subsequent troponin levels increased substantially to 4900 following which cardiology was consulted. Patient had elevated D-dimer levels, CT chest angio was done which showed no pulmonary embolism. Patient was recently at [place] and was told that she has myocardial infarction and was scheduled for angiography on April 16. We will and cardiology consult patient underwent left heart catheterization on 04/11 which revealed severe coronary artery disease , with 100% occlusion of the LAD, 70-80% stenosis of the superior branch of circumflex and 99% stenosis of the mid segment of the left circumflex swelling which three stents were put. Patient underwent shockwave lithotripsy of NAD, CONSULTING BUSINESS DEVELOPER of right eye near and attempted CONSULTING BUSINESS DEVELOPER of SFA. Post left heart catheterization patient right femoral artery hematoma we will await balloon tamponade was done and pressure dressing was applied. Hemoglobin dropped from 13 to 9. Patient was then shifted due ICU for further care. Patient's H&H remained stable. On 04/13 patient underwent peripheral angiogram revealed severe peripheral vascular disease, occlusion of the distal SFA with the collateralization form internal iliac to profunda and distal SFA, moderate calcification of anterior tibial and tibioperoneal trunk. Cardiology recommended medical management with the dual antiplatelet therapy. Patient went into acute decompensated heart failure due to severe dilated ischemic cardiac myopathy and was started on diuresis with Lasix 60 mg b.i.d.. Over the course of hospital stay initially patient had respiratory distress and had to be put on BiPAP on 0 04/16 throughout the day improving her work of breathing. With diuresis patient's patient's oxygen requirement decreased and was eventually on 2 L nasal cannula. Patient was on dual antiplatelet therapy with the aspirin and Plavix, high dose statin. patient was medically stable and we had initiated transferred to [place] where she was accepted and transferred for further medical management. Physical examination Gen - no pallor, no icterus, no cyanosis, no edema . Skin - Patients skin is warm and dry. HEENT - normocephalic, atraumatic, moist mucous membranes. Neck - full ROM, no LAD, no JVD Pulmonary - B/L rales in the lower zones, no wheezing, no stridor. cardiovascular - regular S1,S2 heard, no added sounds, no murmurs heard. capillary refill normal <3 secs. GI - soft, nontender abdomen. no hepatospleenomegaly. Bowel sounds normoactive Neurological - Patient is A/O X 3 . Bilateral upper extremity strength 4/5, bilateral lower extremity strength 4/5, no facial droop, normal speech, no tremor, no sensory deficiets critical care Time spent on discharge plannin minutes. Consults/Reason for consult Cardiology consultation Operations or Procedures Operative Report - 2 Report Details Date: 04/11/25 Preop Diagnosis: Acute myocardial infarction, congestive heart failure. Peripheral vascular disease. Postop Diagnosis: Severe ischemic cardiomyopathy. Severe coronary artery disease. Severe peripheral vascular disease. Surgeon: Chavez Chen MD Anesthesiologist: Conscious sedation Anesthesia: Mac, Local Consent: The patient was informed of the risks and benefits of the procedure. These include but are not limited to complications of anesthesia, postoperative infection, incomplete relief of symptoms, recurrence of symptoms, damage to blood vessels, nerves and tendons, deep venous thrombosis, pulmonary embolism and possible need for repeat surgery in the future. Complications: Extravasation of contrast from right femoral artery arterial site. Estimated Blood Loss: Patient developed hematoma with drop in hematocrit and hemoglobin of about 4 g Fluids: Proximally 500 cc normal saline Findings: Severe coronary artery disease. Peripheral vascular disease. Cardiomyopathy. Indications for Surgery: Pulmonary edema. Congestive heart failure. Acute myocardial infarction. Coronary artery disease. Coronary ischemia Name of Procedure Performed Left heart catheterization. Bilateral cine coronary angiography. Left ventriculography. PTCA and stenting of the left anterior descending coronary artery and circumflex coronary artery/marginal branches. Intravascular ultrasound evaluation of the LAD and circumflex. Shockwave therapy of left anterior descending coronary artery. CONSULTING BUSINESS DEVELOPER of right iliac. Angiographic evaluation of right iliac and superficial femoral artery. Attempted CONSULTING BUSINESS DEVELOPER of SFA. Balloon tamponading of right femoral artery for enlarging hematoma right groin. Procedure Details Procedure Details: Prior local anesthesia with 2% lidocaine to the right wrist and full informed consent obtained the patient was prepped and draped in the usual fashion an attempt was made to enter the radial artery. We placed a six German sheath into the right radial artery however we were unable to pass a catheter beyond the elbow given the severe stricture within the radial artery. We opted to then accessed the groin. Under ultrasound and fluoroscopic guidance we were able to access the right femoral artery. We did enter a stented segment. We were unable to pass a conventional guidewire after we entered the femoral artery. There was two lesions noted in the iliacs for which we placed a stiff wire into the femoral artery and then used the back end of the J curved guidewire to be able to pass the area of stenosis. We then placed AJ curved guidewire beyond the 2nd lesion in the iliac and we were able to pass catheters to perform the angiographic evaluation and the angioplasty as well as ultrasound evaluations and shockwave therapy of the coronary vasculature. Subsequent to the angioplasty of the coronary arteries we performed CONSULTING BUSINESS DEVELOPER of the iliac as will be delineated below. Hemodynamics aortic blood pressure was 100/50. End-diastolic pressure was 25- 30. There was no gradient across the aortic valve on pullback. Coronary anatomy: The RCA is large and dominant vessel. PDA and posterolateral branches are within normal limits with with mild plaquing with no critical lesions. The left main is large but short and is normal. Left anterior descending coronary artery is 100% occluded. There was minimal flow into the proximal segment but the entirety of the LAD is not visualized. The circumflex is a large vessel it divides into two branches. The superior branch/the 1st marginal has an ostial 70-80% stenosis and a mid 90% stenosis which is long and tubular. The proximal segment of the circumflex distal to the 1st marginal and/or the mid segment of the circumflex has a 99% stenosis with a black that extends for about15 mm. Ventriculography in the VANCE projection shows an EF of about 20% with an enlarged LV. Angioplasty was performed. We placed a 3-0 XB catheter as noted above into the left main. VIDHI on wire was used across the area of stenosis and a two five balloon was used to pre dilate. There was significant calcification with a waist that remained subsequent to higher pressures. We then exchanged the two five balloon for a two five shockwave balloon. Six treatment sequences were performed. There was notable improvement in flow. We then placed a two five by18 mm stent into the proximal and ostial segment of the LAD. There was notably improved flow to VERO three flow. We then placed a Ca and a wire into the proper circumflex and pre-dilated. We then placed a 3-0 by15 mm balloon into the mid segment of the circumflex. We noticed a proximal dissection for which we then placed a 3-0 by8 mm stent overlapping the initial stent and at the bifurcation of the 1st marginal. Given that there was a significant lesion at the origin of the 1st marginal we redirected our wire superiorly and placed a two five balloon followed by a two five by 30 mm boris [place] drug-eluting stent at approximately 16 atmospheres. There was excellent antegrade flow without thrombus formation and/or dissection. Once the angioplasty of the coronary vasculature was completed we directed our attention to the iliac vessels. We took a8 x 40 mm balloon and dilated within the stent the areas of in stent restenosis. There was notable improvement however there was still some plaquing present. We retracted the balloon proximally towards the sheath/distally from the patient and we dilated the segment of SFA just distal to the insertion point of are sheath. It appears that a strut had enlarged and placing the sheath. We noticed a progressive hematoma for which we then placed significant pressure and placed a six German sheath into the left femoral artery and analyzed the hematoma that was expanding for which we had placed more pressure. We noticed that there was a extravasation of contrast adjacent to the profunda within the common femoral. We then placed a8 mm balloon at two atmospheres after placing a destination catheter into the left femoral artery and crossing over the horn into the right iliac and femoral artery. We were able to document that we had a tamponade of the artery. We attempted to gain access into the femoral since it appeared that there was some flow initially albeit minute. We were not able to pass a wire into the actual mid to distal superficial femoral artery. We also noted collaterals from the internal iliac to the profunda and distally into the distal SFA and tibioperoneal trunk.. It was noted that she did have pulses in the posterior tibial with a Doppler postprocedure. Subsequent tamponading the common femoral and distal iliac we noted thrombus formation within the stent and proximal SFA. The extravasation of contrast has ceased at the entry point of the femoral sheath. There was notable and complete cessation of contrast extravasation in the hematoma was stable. The left femoral sheath was pulled and a Angio-Seal device was used. The patient was taken to ICU with a dobutamine drip for the treatment of her congestive heart failure and monitoring of her right femoral hematoma. A staged procedure to be considered. Impression severe dilated ischemic cardiomyopathy successful stenting of the LAD and circumflex coronary arteries. Successful intravascular ultrasound and lithotripsy treatment of the left anterior descending coronary artery. Severe peripheral vascular disease. With angioplasty of the right iliac. Balloon tamponading of the right femoral artery for contrast extravasation from the initial sheath placement. Significant peripheral vascular disease involving the right and left superficial femoral artery. Occlusion of the left superficial femoral artery FR hand. Adequate collateralization from the profunda to the left lower extremity thus far. Recommendations: Continue dual antiplatelet therapy. Monitor H&H. Staged procedure for the right femoral and iliac artery angioplasty retrograde from the posterior tibial artery. This will be performed within the next48 hours. Case discussed with family. Condition Guarded Disposition 2 Still a Patient Date of Service: Apr 11, 2025 Billing Provider: CHAVEZ CHEN Sr., MD Cardiology Common Codes: 13004-UOBLYKP INP/OBS CARE (High) Cardiology Procedure Codes: 14078-HFDHDY VESSEL W/I VASC FAM, 89919 -PTCA W/STENT PLACEMENT, 67631-KJMO ADD CORONARY BRANCH (Associated angioplasty and stenting of the LAD and circumflex coronary vasculature. The iliac artery angioplasty. Balloon tamponading as noted. Successful shockwave therapy treatment to the LAD. Intravascular ultrasound evaluation of the left anterior descending coronary artery. Severe peripheral vascular disease with balloon tamponading of contrast extravasating site in right femoral artery.), 05725-EYGX HEART CATH W/INTRA INJ CHAVEZ CHEN Sr., MD Apr 11, 2025 21:08 DICTATED BY:CHAVEZ CHEN Sr., MD DICTATED DATE/TIME:04/11/252107 ELECTRONICALLY SIGNED BY:CHAVEZ CHEN Sr., MD 04/11/252107 Operative Report - 2 Report Details Date: 04/13/25 Preop Diagnosis: Severe peripheral vascular disease Postop Diagnosis: Severe peripheral vascular disease Surgeon: Chavez Chen MD Anesthesiologist: Conscious sedation Anesthesia: Mac, Local Consent: The patient was informed of the risks and benefits of the procedure. These include but are not limited to complications of anesthesia, postoperative infection, incomplete relief of symptoms, recurrence of symptoms, damage to blood vessels, nerves and tendons, deep venous thrombosis, pulmonary embolism and possible need for repeat surgery in the future. Complications: No complications Estimated Blood Loss: 10 cc Findings: Severe peripheral vascular disease. Occlusion of the distals SFA. Collateralization from internal iliac to profunda and distal SFA Indications for Surgery: Severe peripheral vascular disease Name of Procedure Performed Angiographic evaluation of right anterior tibial artery right popliteal and tibioperoneal trunk as well as peroneal artery. Attempted angioplasty of the SFA Procedure Details Procedure Details: Prior local anesthesia with 2% lidocaine to the right distal anterior tibial area above with the ankle, under fluoroscopic and ultrasound guidance we gained access into the distal anterior tibial artery. We placed a five German sheath and performed angioplasty of the mid anterior tibial and proximal anterior tibial artery notable pass catheters. We then performed an angiographic evaluation of the distal superficial and popliteal arteries. We noted a complete occlusion of the distal superficial femoral artery and collateralization of the popliteal artery via collaterals from the profunda right. On previous evaluation it is noted that the patient has collateralization from the internal iliac to the profunda. There was good flow of the fluid from the tibial and peroneal artery. There was moderate calcification of the anterior tibial and tibioperoneal trunk patency of the peroneal to the ankle. The posterior tibial artery is occluded. We attempted a retrograde approach with multiple guidewires and catheters. We placed Terumo Navicross catheters including the 0.14 , 0.18 and 035. We were not able to cross into the true lumen in the distal SFA. We were not able to break the distal cap and enter into a subintimal plane. There was significant calcification and severe atherosclerotic disease of this vessel. After several attempts with different wires we terminated the procedure. We pulled the sheath. Patient tolerated the procedure well there were no complications. We will continue the new to treat her medically and consider an antegrade approach at a future date. Condition Guarded Disposition 2 Still a Patient Date of Service: Apr 13, 2025 Billing Provider: CHAVEZ CHEN Sr., MD Cardiology Common Codes: 12817-[id number] INP/OBS CARE (High) CHAVEZ CHEN Sr., MD Apr 13, 2025 18:04 DICTATED BY:CHAVEZ CHEN Sr., MD DICTATED DATE/TIME:04/13/251803 ELECTRONICALLY SIGNED BY:CHAVEZ CHEN Sr., MD 04/13/251803 Condition at Discharge: Fair Final Diagnosis/Problems List Bilateral pulmonary edema likely from acute decompensated heart failure Possible pneumonia due to gram+/- bacteria Acute on chronic hypercapnic respiratory failure NSTEMI type 1 Severe coronary artery disease s/p PCI with a 3 stents Uncontrolled Type 2 diabetes mellitus Severe dilated Ischemic cardiomyopathy Acute decompensated heart failure Heart failure with reduced ejection fraction Peripheral artery disease, severe s/p angioplasty Right femoral hematoma s/p left heart catheterization paroxysmal SVT Uncontrolled Type 2 diabetes mellitus KINJAL on CKD likely due to be VMN Discharge Disposition: Acute Care Facility Discharge Instruct/Medications Diet: Consistent carbohydrate Activity: No Restrictions, As Tolerated Follow Up/Referral: [facility] Medications: SEE MED REC Scheduled Amlodipine Besylate (Amlodipine Besylate), 1 TAB PO BID, (Reported) Atorvastatin Calcium (Atorvastatin Calcium), 1 TAB PO HS, (Reported) Glipizide (Glipizide), 1 TAB PO DAILY, (Reported) Isosorbide Mononitrate (Isosorbide Mononitrate Er), 1 TAB PO DAILY, (Reported) Lisinopril (Lisinopril), 1 TAB PO DAILY, (Reported) Metformin Hydrochloride (Metformin Hcl Er), 1 TAB PO DAILY, (Reported) Metoprolol Tartrate (Lopressor Tablet), 1 TAB PO BID, (Reported) Omeprazole (Omeprazole Dr), 1 CAP PO DAILY, (Reported) Discharge Statement: "Patient was advised to return to the ER or call 911 if any headaches, dizziness, shortness of breath, chest pain, abdominal pain, bleeding, fevers, or worsening of medical condition. Patient was counseled about treatment plan, medications, possible side effects, patientverbalized understanding. All questions were answered to the best of my ability. This discharge took greater then 30 minutes in planning, reviewing documentation, counseling the patient, and discussing with other team members." ASSESSMENT ASSESSMENT Assessment NSTEMI Date of Service: Apr 18, 2025 Billing Provider: CONNIE NAIDU MD Common Visit Codes: 01370-[id number] CARE 30-74 MIN DHARA WEI RESIDENT Apr 19, 2025 06:39 CONNIE NAIDU MD Apr 21, 2025 12:12
--- NOTE | 2025-04-19 08:42 | ECG ---
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
[2025-04-19] MEDS ORDERED: FUROSEMIDE 40 MG/4 ML VIAL IV SCH (10:00)
== END 2025-04-18 23:45 | disposition short-term general hospital (02) | DRG 323 ==
LOC: EDBD 07:00 → EDSEX 07:00 → ER 07:00 → OVERFLOW 14:36 → ICU WEST 20:20
PROVIDERS: ADMIT Internal Medicine; ATTEND Internal Medicine
PROC: 0272366 Dilation of Coronary Artery, Three Arteries, Bifurcation, with Three Drug-eluting Intraluminal Devices, Percutaneous Approach (ICD-10-PCS; principal; 2025-04-11)
PROC: 02F03ZZ Fragmentation in Coronary Artery, One Artery, Percutaneous Approach (ICD-10-PCS; 2025-04-11)
PROC: 047C3DZ Dilation of Right Common Iliac Artery with Intraluminal Device, Percutaneous Approach (ICD-10-PCS; 2025-04-11)
PROC: 4A023N7 Measurement of Cardiac Sampling and Pressure, Left Heart, Percutaneous Approach (ICD-10-PCS; 2025-04-11)
PROC: 5A09357 Assistance with Respiratory Ventilation, Less than 24 Consecutive Hours, Continuous Positive Airway Pressure (ICD-10-PCS; 2025-04-11)
PROC: B241ZZ3 Ultrasonography of Multiple Coronary Arteries, Intravascular (ICD-10-PCS; 2025-04-11)
PROC: B211YZZ Fluoroscopy of Multiple Coronary Arteries using Other Contrast (ICD-10-PCS; 2025-04-11)
PROC: B215YZZ Fluoroscopy of Left Heart using Other Contrast (ICD-10-PCS; 2025-04-11)
PROC: B41FYZZ Fluoroscopy of Right Lower Extremity Arteries using Other Contrast (ICD-10-PCS; 2025-04-11)
PROC: 047K3ZZ Dilation of Right Femoral Artery, Percutaneous Approach (ICD-10-PCS; 2025-04-11)
PROC: 047P3ZZ Dilation of Right Anterior Tibial Artery, Percutaneous Approach (ICD-10-PCS; 2025-04-13)
PROC: B41FYZZ Fluoroscopy of Right Lower Extremity Arteries using Other Contrast (ICD-10-PCS; 2025-04-13)
PROC: 30233N1 Transfusion of Nonautologous Red Blood Cells into Peripheral Vein, Percutaneous Approach (ICD-10-PCS; 2025-04-14)
PROC: 5A09357 Assistance with Respiratory Ventilation, Less than 24 Consecutive Hours, Continuous Positive Airway Pressure (ICD-10-PCS; 2025-04-16)
DX: T82.855A Stenosis of coronary artery stent, initial encounter (principal); I21.09 ST elevation (STEMI) myocardial infarction involving other coronary artery of anterior wall; I50.23 Acute on chronic systolic (congestive) heart failure; J15.69 Pneumonia due to other Gram-negative bacteria; N17.0 Acute kidney failure with tubular necrosis; J15.9 Unspecified bacterial pneumonia; J96.22 Acute and chronic respiratory failure with hypercapnia; T80.818A Extravasation of other vesicant agent, initial encounter; I13.0 Hypertensive heart and chronic kidney disease with heart failure and stage 1 through stage 4 chronic kidney disease, or unspecified chronic kidney disease; I42.0 Dilated cardiomyopathy; E87.4 Mixed disorder of acid-base balance; I47.10 Supraventricular tachycardia, unspecified; R65.10 Systemic inflammatory response syndrome (SIRS) of non-infectious origin without acute organ dysfunction; E87.6 Hypokalemia; N18.30 Chronic kidney disease, stage 3 unspecified; J45.909 Unspecified asthma, uncomplicated; D64.9 Anemia, unspecified; E66.9 Obesity, unspecified; E11.51 Type 2 diabetes mellitus with diabetic peripheral angiopathy without gangrene; E11.22 Type 2 diabetes mellitus with diabetic chronic kidney disease; I70.291 Other atherosclerosis of native arteries of extremities, right leg; Z68.33 Body mass index [BMI] 33.0-33.9, adult; I25.5 Ischemic cardiomyopathy; E78.5 Hyperlipidemia, unspecified; Z96.641 Presence of right artificial hip joint; T50.8X5A Adverse effect of diagnostic agents, initial encounter; S30.1XXA Contusion of abdominal wall, initial encounter; N14.11 Contrast-induced nephropathy; I25.10 Atherosclerotic heart disease of native coronary artery without angina pectoris; E83.42 Hypomagnesemia; Z95.5 Presence of coronary angioplasty implant and graft; Z82.5 Family history of asthma and other chronic lower respiratory diseases; Y84.0 Cardiac catheterization as the cause of abnormal reaction of the patient, or of later complication, without mention of misadventure at the time of the procedure; Y92.234 Operating room of hospital as the place of occurrence of the external cause
CPT/HCPCS: 36415; 36600; 37221; 37224; 37228; 71045; 71275; 76937; 80048; 80053; 80061; 81001; 81003; 82550; 82805; 82962; 83036; 83735; 83880; 84443; 84484; 85007; 85014; 85018; 85025; 85027; 85379; 85610; 85730; 86850; 86900; 86901; 86920; 87040; 87070; 87081; 87086; 87205; 92941; 92974; 92978; 93005; 93306; 93458; 93926; 93970; 94640; 94660; 96365; 96375; 99152; 99291; C1725; C1769; C1874; C1894; G0378; J0153; J1815; J2250; J2470; J3480; Q9967

== ENCOUNTER 2025-05-28 15:31 | Emergency (ER) | payer OTHER, MEDICAID ==
[~2025-05-28] VITALS: Ht 157.5 cm; Wt 63.0 kg
[~2025-05-28 15:31] MED LIST: AMLO1TAB21 PO; ATOR40TA52 PO; GLIP10TA9 PO; ISOS1TAB28 PO; LISI40TA16 PO; MET50T PO; METF-1145 PO; OMEP1CAP70 PO
[2025-05-28] MEDS: ACETAMINOPHEN 325 MG TAB PO ONE (16:30)
[2025-05-28] MEDS: METOCLOPRAMIDE HCL 5MG/ml INJ 2ml VIAL IV ONE (16:30)
[2025-05-28] MEDS: SODIUM CHLORIDE 0.9% 1,000 ML IV ONE (16:30)
--- NOTE | 2025-05-28 17:09 | ED.PDOC ---
History of Present Illness HPI Comments Mrs. Shabazz is a 79-year-old female with past medical history of DM2, hypertension, hyperlipidemia, ACS with 2 stents (04/2025), CHF with home O2 (2L). The patient came to the ED with chief complaint of 2 weeks of intermittent throbbing headache 5/10, unilateral, right side of the head, associates nausea; the patient denies, dizzines, vomit, weakness, neurologic deficits or other symptoms. The patient took Gause with temporal relief. Today, due to persistence of her symptoms she decided to visit the ED. NS has been initiated and further work up has been requested. Chief Complaint: Headache/Nausea Time Seen by MD: 15:56 Reviewed Notes: Nurses Notes, Medications, Allergies Allergies: Coded Allergies: NO KNOWN ALLERGIES (Unverified , 04/11/25) Home Meds Reported Medications Isosorbide Mononitrate (Isosorbide Mononitrate Er) 30 Mg Tab, 1 TAB PO DAILY 04/11/25 Amlodipine Besylate (Amlodipine Besylate) 2.5 Mg Tab, 1 TAB PO BID 04/11/25 Omeprazole (Omeprazole Dr) 20 Mg Cap, 1 CAP PO DAILY 04/11/25 Metformin Hydrochloride (Metformin Hcl Er) 500 Mg Tab, 1 TAB PO DAILY 04/11/25 Glipizide (Glipizide) 10 Mg Tab, 1 TAB PO DAILY 04/11/25 Lisinopril (Lisinopril) 40 Mg Tab, 1 TAB PO DAILY 04/11/25 Atorvastatin Calcium (ATORVASTATIN CALCIUM) 40 Mg Tab, 1 TAB PO HS 04/11/25 Metoprolol Tartrate (LOPRESSOR TABLET) 50 Mg Tb, 1 TAB PO BID 04/11/25 Information Source: Patient, Relative (Child), Significant Other () Mode of Arrival: Wheelchair Severity: Mild Timing: Weeks Duration: Since onset Medication Refill: For: Hypertension Past Medical History PAST MEDICAL HISTORY: Asthma, CAD, DM, High Lipids, HTN Surgical History (Cont'd) Right total hip replacement. 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: Denies all 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 Hx Family History Family History: Reviewed,noncontributory to illness Social History Smoker: Non-Smoker Alcohol: Denies ETOH Use Drugs: Denies Drug Use Lives In: Home Constitutional: reports: others (Loss of apettite); denies: chills, diaphoresis, fatigue, fever, malaise, sweats, weakness EENTM: denies: blurred vision, double vision, ear bleeding, ear discharge, ear drainage, ear pain, ear ringing, eye pain, eye redness, hearing loss, mouth pain, mouth swelling, nasal discharge, nose bleeding, nose congestion, nose pain, photophobia, tearing, throat pain, throat swelling, voice changes, others Respiratory: denies: cough, hemoptysis, orthopnea, SOB at rest, shortness of breath, SOB with excertion, stridor, wheezing, others Cardiovascular: denies: chest pain, dizzy spells, diaphoresis, Dyspnea on exertion, edema, irregular heart beat, left arm pain, lightheadedness, palpitations, PND, syncope, others Gastrointestinal: reports: constipated, nausea; denies: abdomen distended, abdominal pain, blood streaked bowels, diarrhea, dysphagia, difficulty swallowing, hematemesis, melena, poor appetite, poor fluid intake, rectal bleeding, rectal pain, vomiting, others Genitourinary: denies: abnormal vagina bleeding, burning, dyspareunia, dysuria, flank pain, frequency, hematuria, incontinence, pain, , vagina discharge, urgency, others Neurological: reports: headache; denies: dizziness, fainting, left sided numbness, left sided weakness, numbness, paresthesia, pre-existing deficit, right sided numbness, right sided weakness, seizure, speech problems, tingling, tremors, weakness, others Musculoskeletal: denies: back pain, gout, joint pain, joint swelling, muscle pain, muscle stiffness, neck pain, others Integumetry: denies: bruises, change in color, change in hair/nails, dryness, laceration, lesions, lumps, rash, wounds, others Allergic/Immunocompromised: denies: Difficulty Healing, Frequent Infections, Hives, Itching, others Hematologic/Lymphatic: denies: anemia, blood clots, easy bleeding, easy bruising, swollen glands, others Endocrine: denies: excessive hunger, excessive sweating, excessive thirst, excessive urination, flushing, intolerance to cold, intolerance to heat, unexplained weight gain, unexplained weight loss, others Psychiatric: denies: anxiety, bipolar disorder, depression, hopeless, panic disorder, schizophrenia, sleepless, suicidal, others Physical Exam General Appearance: Normal HEENT: Normal ENT Inspection, Pharynx Normal, TMs Normal Neck: Full Range of Motion, Non-Tender, Normal, Normal Inspection Respiratory: Chest Non-Tender, Lungs Clear, No Accessory Muscle Use, No Respiratory Distress, Normal Breath Sounds Cardiovascular: No Edema, No JVD, No Murmur, No Gallop, Normal Peripheral Pulses, Regular Rate/Rhythm Breast Exam: Deferred Gastrointestinal: No Organomegaly, Non Tender, No Pulsatile Mass, Normal Bowel Sounds, Soft Genitalia: Deferred Pelvic: Deferred Rectal: Deferred Extremities: No calf tenderness, Normal capillary refill, Normal inspection, Normal range of motion, Non-tender, No pedal edema, Other (Small healed ulcer on digit o right foot. ) Neurologic: Alert, lotus notes administrator II-XII nml as Tested, No Motor Deficits, Normal Affect, Normal Mood, No Sensory Deficits Cerebellar Function: Normal, Other (cound not evaluate gait, patient uses wheelchair ) Reflexes: Normal Skin: Dry, Normal Color, Warm Lymphatic: No Adenopathy Was a procedure done? Was a procedure done?: No Differential Dx Considerations may include: #Headache of unspecified origin. R/O migraine IV Fluids CBC, CMP, UA Metoclopramide 10mg IV Acetaminophen 650mg po X-Ray, Labs, Meds, VS Vital Signs Date Time Temp Pulse Resp B/P (MAP) Pulse Ox O2 Delivery O2 Flow Rate FiO2 05/28/25 15:36 97.8 73 18 116/57 97 97.8 Lab Test 05/28/25 17:02 Range/Units White Blood Count 8.0 4.4-10.8 10^3/uL Red Blood Count 4.01 4.0-5.20 10^6/uL Hemoglobin 11.8 L 12.2-16.2 g/dL Hematocrit 35.9 L 36.0-46.0 % Mean Corpuscular Volume 89.3 80.0-100.0 fL Mean Corpuscular Hemoglobin 29.3 28.0-32.0 pg Mean Corpuscular Hemoglobin Concent 32.8 32.0-36.0 g/dL Red Cell Distribution Width 16.0 H 11.8-14.3 % Platelet Count 210 140-450 10^3/uL Mean Platelet Volume 8.8 6.9-10.8 fL Neutrophils (%) (Auto) 74.2 37.0-80.0 % Lymphocytes (%) (Auto) 17.6 10.0-50.0 % Monocytes (%) (Auto) 6.7 0.0-12.0 % Eosinophils (%) (Auto) 0.7 0.0-7.0 % Basophils (%) (Auto) 0.8 0.0-2.0 % Neutrophils # (Auto) 5.9 1.6-8.6 10 ^3/uL Lymphocytes # (Auto) 1.4 0.4-5.4 10 ^3/uL Monocytes # (Auto) 0.5 0-1.3 10 ^3/uL Eosinophils # (Auto) 0.1 0-0.8 10 ^3/uL Basophils # (Auto) 0.1 0-0.2 10 ^3/uL Nucleated Red Blood Cells 0.0 % Sodium Level 140 136-145 mmol/L Potassium Level 4.3 3.5-5.1 mmol/L Chloride Level 95 L 98-107 mmol/L Carbon Dioxide Level 33 H 20-31 mmol/L Anion Gap 12 5-15 Blood Urea Nitrogen 16 9-23 mg/dL Creatinine 1.31 H 0.550-1.02 mg/dL Glomerular Filtration Rate Calc 41 >90 mL/min BUN/Creatinine Ratio 12.2 10.0-20.0 Serum Glucose 70 L 74-106 mg/dL Calcium Level 9.5 8.7-10.4 mg/dL Troponin I High Sensitivity 32 </=34 ng/L X-Ray, Labs, Meds, VS Comment Patient is evaluated with lab results: hemoglobin 11.8, glucose 70, chloride 97, troponins 32. Patient reports feeling better. Time of 1ST Reevaluation: 18:30 Reevaluation 1ST: Improved Patient Education/Counseling: Diagnosis, Treatment, Prognosis, Need For Follow Up (Follow up with PCP) Family Education/Counseling: Diagnosis, Treatment, Prognosis, Need For Follow Up SEPSIS Sepsis Screen Date sepsis recognized/suspect: May 28, 2025 Time Sepsis recognized/suspect: 1535 Recent Procedure: No On Antibiotic Therapy: No Respiratory Rate >20: No Heart Rate >90: No Temp<36 C (96.8 F) or >38.3 C: No SBP <90 or MAP <65 mmHG: No New Acute Mental Status Change: No Is the patient on CPAP, BIPAP,: No Physician Orders Urinalysis (05/28/25 16:30) Vital Signs Date Time Temp Pulse Resp B/P (MAP) Pulse Ox O2 Delivery O2 Flow Rate FiO2 05/28/25 15:36 97.8 73 18 116/57 97 97.8 Laboratory Tests Test 05/28/25 17:02 White Blood Count 8.0 10^3/uL (4.4-10.8) Departure 1 Departure Time of Disposition: 18:42 Impression: Primary Impression: Migraine Additional Impression: Tension headache Disposition: 01 HOME / SELF CARE / HOMELESS Condition: Good Additional Instructions: Follow up with PCP in 1 week Discharged With: Spouse (Daugther ), Significant Other Comments Goals of care discussed with the patient > 35 min. Discussed plan of care with Dr. Andersen Code status: Full code PCP: Plan discussed with: Patient, the patient agrees with the plan. Critical Care Note Critical Care Time?: No Stability Stability form required: No Stable for transfer: N/A Unstable for transfer: N/A Heart Score Heart Score: Heart Score Response (Comments) Value History N/A 0 EKG N/A 0 Age >65 2 Risk Factors >3 or Hx ASHD 2 Troponin Normal limit 0 Total 4 SHELLY SOL RESIDENT May 28, 2025 17:09
[2025-05-28 17:19] LABS: Hematocrit 35.9 % (36.0-46.0); Hemoglobin 11.8 g/dL (12.2-16.2); Mean Corpuscular Hemoglobin 29.3 pg (28.0-32.0); Mean Corpuscular Volume 89.3 fL (80.0-100.0); Nucleated Red Blood Cells % 0.0 %
[2025-05-28 17:28] LABS: Potassium 4.3 mmol/L (3.5-5.1); Sodium 140 mmol/L (136-145)
[2025-05-28 17:29] LABS: Anion Gap 12 (5-15); Calcium 9.5 mg/dL (8.7-10.4)
[2025-05-28 17:34] LABS: BUN/Creatinine Ratio 12.2 (10.0-20.0); Blood Urea Nitrogen 16 mg/dL (9-23)
[2025-05-28 17:36] LABS: Carbon Dioxide 33 mmol/L (20-31); Chloride 95 mmol/L (98-107); Glucose 70 mg/dL (74-106)
[2025-05-28] MEDS ORDERED: OMEP1CAP70 PO (18:38)
[2025-05-28] MEDS ORDERED: ZOFR4T PO (18:38)
[2025-05-28 18:45] VITALS: BP 126/60; PULSE 74; RESP 13; TEMP 98.2; O2SAT 97
== END 2025-05-28 18:54 | disposition home or self-care (01) ==
LOC: ER 15:31
DX: G43.909 Migraine, unspecified, not intractable, without status migrainosus (principal); G44.209 Tension-type headache, unspecified, not intractable; J45.909 Unspecified asthma, uncomplicated; E11.9 Type 2 diabetes mellitus without complications; I11.0 Hypertensive heart disease with heart failure; I50.9 Heart failure, unspecified; I25.10 Atherosclerotic heart disease of native coronary artery without angina pectoris; E78.5 Hyperlipidemia, unspecified; Z79.899 Other long term (current) drug therapy; Z96.641 Presence of right artificial hip joint; Z79.84 Long term (current) use of oral hypoglycemic drugs
CPT/HCPCS: 36415; 80048; 84484; 85025